=== PATIENT | male | born 1950 | race Two or more races ===

== ENCOUNTER 2018-06-01 20:12 | Inpatient (IN) | payer OTHER ==
[~2018-06-01] VITALS: Ht 182.9 cm; Wt 90.9 kg
[2018-06-01] MEDS ORDERED: diltiazem-NS 100mg/100ml 100 ML IV SCH (20:35)
[2018-06-01] MEDS ORDERED: heparin 10,000 units/1 ML INJ IV ONE ×2 (20:35→20:40)
[2018-06-01 20:54] LABS: BASOPHILS % (AUTO) 0.1 % (0-1); EOSINOPHILS # (AUTO) 0.2 X10'3 (0-0.9); EOSINOPHILS % (AUTO) 2.2 % (0-6); HEMATOCRIT 43.1 % (42.0-52.0); HEMOGLOBIN 14.4 g/dl (14.0-17.9); LYMPHOCYTES # (AUTO) 0.9 X10'3 (1.1-4.8); LYMPHOCYTES % (AUTO) 11.8 % (21-51); MEAN CORPUSCULAR HGB CONC 33.5 % (33.0-36.5); MEAN CORPUSCULAR VOLUME 101.4 FL (78-98); MEAN PLATELET VOLUME 8.5 FL (7.4-10.4); MONOCYTES # (AUTO) 0.7 X10'3 (0-0.9); MONOCYTES % (AUTO) 9.9 % (2-12); NEUTROPHILS # (AUTO) 5.6 X10'3 (1.8-7.7); PLATELET COUNT 150 X10'3 (140-440); RED BLOOD COUNT 4.25 X10'6 (4.70-6.10); WHITE BLOOD COUNT 7.4 X10'3 (4.5-11.0)
[2018-06-01 21:08] LABS: INR 1.1 INR; PARTIAL THROMBOPLASTIN TIME 29 SECONDS (22-32); PROTHROMBIN TIME 11.5 SECONDS (9.0-12.0)
[2018-06-01 21:12] LABS: ALANINE AMINOTRANSFERASE 30 U/L (12-78); ALBUMIN 3.2 G/DL (3.4-5.0); ALBUMIN/GLOBULIN RATIO 0.8 (1.1-1.5); ALKALINE PHOSPHATASE 95 IU/L (46-116); ANION GAP 7 (8-16); ASPARTATE AMINO TRANSFERASE 27 U/L (10-37); BILIRUBIN,TOTAL 1.3 MG/DL (0.1-1.0); BLOOD UREA NITROGEN 29 MG/DL (7-18); BUN/CREATININE RATIO 14.3 (5.4-32.0); CALCIUM 8.8 MG/DL (8.5-10.1); CHLORIDE 104 MMOL/L (99-107); CREATININE 2.03 MG/DL (0.60-1.10); GLUCOSE 92 MG/DL (70-104); POTASSIUM 3.6 MMOL/L (3.5-5.1); SODIUM 141 MMOL/L (135-145); TOTAL CARBON DIOXIDE 29.8 MMOL/L (24-32); TOTAL PROTEIN 7.1 G/DL (6.4-8.2); eGFR 33 ML/MIN
[2018-06-01] MEDS: heparin 10,000 units/1 ML INJ IV PRN (21:14)
[2018-06-01 21:21] LABS: MAGNESIUM 2.2 MG/DL (1.5-2.4)
[2018-06-01 21:39] LABS: CLARITY,URINE CLEAR (Clear); COLOR,URINE YELLOW (Yellow); GLUCOSE, URINE NEGATIVE (Neg); KETONES,URINE NEGATIVE (Neg); LEUKOCYTE ESTERASE ,URINE NEGATIVE (Neg); NITRITES, URINE NEGATIVE (Neg); OCCULT BLOOD,URINE NEGATIVE (Neg); PROTEIN,URINE 30 mg/dl (Neg); UROBILINOGEN,URINE 0.2 E.U/dL (0.2-1.0)
[2018-06-01 21:40] LABS: UA COLLECTION TYPE URINAL
[2018-06-01 21:49] LABS: URINE AMPHETAMINE SCREEN NEGATIVE (Neg); URINE BARBITUATE SCREEN NEGATIVE (Neg); URINE BENZODIAZEPINES SCREEN NEGATIVE (Neg); URINE CANNABINOID SCREEN NEGATIVE (Neg); URINE COCAINE SCREEN NEGATIVE (Neg); URINE METHADONE SCREEN NEGATIVE (Neg); URINE OPIATE SCREEN NEGATIVE (Neg); URINE PHENCYCLIDINE SCREEN NEGATIVE (Neg)
[2018-06-01 22:01] LABS: BACTERIA,URINE NONE SEEN /HPF (Neg); MUCUS STRANDS NONE SEEN /LPF (Neg); RBC,URINE 0-2 /HPF (0-2); SQUAMOUS EPITHELIAL CELL,UR FEW /LPF (FEW); WBC,URINE 0-4 /HPF (0-4)
[2018-06-01] MEDS ORDERED: FURO-150 PO (22:38)
[2018-06-01] MEDS ORDERED: METO100T7 PO (22:38)
[2018-06-01] MEDS ORDERED: LISI-604 PO (22:40)
[2018-06-01] MEDS ORDERED: DIGO125T PO (22:40)
[2018-06-01] MEDS ORDERED: DOCU100C41 PO (22:40)
[2018-06-01] MEDS ORDERED: magnesium hydroxide 30ml (MOM) UD suspension PO PRN (23:30)
[2018-06-01] MEDS ORDERED: ondansetron/PF 4mg/2ml inj IV PRN (23:30)
[2018-06-01] MEDS ORDERED: acetaminophen 325mg tablet PO PRN ×2 (23:30)
[2018-06-01] MEDS ORDERED: mag hydrox/Alum hydrox/simeth 30ml oral suspension PO PRN (23:30)
[2018-06-02] VITALS (10 sets, daily range): BP systolic 109–167; BP diastolic 64–117
[2018-06-02] MEDS ORDERED: ipratropium/albuterol 3ml nebule ONE (02:14)
[2018-06-02] MEDS: hydrALAZINE 20mg/ml inj. IV PRN ×2 (02:14→16:24)
[2018-06-02] MEDS: ipratropium/albuterol 3ml nebule NEB PRN ×2 (02:15→12:11)
[2018-06-02 02:44] LABS: BASOPHILS % (AUTO) 0.4 % (0-1); EOSINOPHILS # (AUTO) 0.2 X10'3 (0-0.9); EOSINOPHILS % (AUTO) 2.5 % (0-6); HEMATOCRIT 42.5 % (42.0-52.0); HEMOGLOBIN 14.3 g/dl (14.0-17.9); LYMPHOCYTES # (AUTO) 0.8 X10'3 (1.1-4.8); LYMPHOCYTES % (AUTO) 11.2 % (21-51); MEAN CORPUSCULAR HEMOGLOBIN 34.1 PG (27.0-31.0); MEAN CORPUSCULAR HGB CONC 33.7 % (33.0-36.5); MEAN CORPUSCULAR VOLUME 101.4 FL (78-98); MEAN PLATELET VOLUME 8.6 FL (7.4-10.4); MONOCYTES # (AUTO) 0.6 X10'3 (0-0.9); MONOCYTES % (AUTO) 7.9 % (2-12); NEUTROPHILS # (AUTO) 5.5 X10'3 (1.8-7.7); PLATELET COUNT 143 X10'3 (140-440); RED BLOOD COUNT 4.19 X10'6 (4.70-6.10); RED CELL DISTRIBUTION WIDTH 16.4 % (11.5-14.5); WHITE BLOOD COUNT 7.1 X10'3 (4.5-11.0)
[2018-06-02] MEDS ORDERED: ipratropium/albuterol 3ml nebule NEB SCH (03:00)
[2018-06-02 03:02] LABS: ALBUMIN 3.2 G/DL (3.4-5.0); ANION GAP 7 (8-16); BLOOD UREA NITROGEN 29 MG/DL (7-18); BUN/CREATININE RATIO 14.5 (5.4-32.0); CHLORIDE 104 MMOL/L (99-107); GLUCOSE 117 MG/DL (70-104); POTASSIUM 3.4 MMOL/L (3.5-5.1); SODIUM 138 MMOL/L (135-145); TOTAL CARBON DIOXIDE 27.2 MMOL/L (24-32); eGFR 33 ML/MIN
[2018-06-02] MEDS: heparin 10,000 units/1 ML INJ IV PRN ×2 (05:42→13:29)
[2018-06-02] MEDS: furosemide 10 MG/1 ML 10ml inj IV SCH ×2 (07:59→20:53)
[2018-06-02] MEDS: potassium Cl 20 mEq SR tablet PO SCH (07:59)
[2018-06-02] MEDS: metoprolol succinate 25mg (24-HOUR) SR. Tablet PO SCH ×2 (09:05→20:53)
[2018-06-02] MEDS ORDERED: nitroGLYCERIN 0.4mg SUBLingual tab SL PRN (17:55)
[2018-06-02] MEDS: aspirin 81mg tablet.DR PO SCH (18:06)
[2018-06-02] MEDS: lisinopril 5mg tablet PO SCH (18:06)
[2018-06-02] MEDS ORDERED: potassium Cl 20 mEq SR tablet PO PRN ×2 (20:40)
[2018-06-02] MEDS ORDERED: magnesium Cl slow-release 64mg tablet PO PRN (20:40)
[2018-06-03 02:04] LABS: ANION GAP 8 (8-16); BLOOD UREA NITROGEN 27 MG/DL (7-18); BUN/CREATININE RATIO 15.3 (5.4-32.0); CALCIUM 8.6 MG/DL (8.5-10.1); CHLORIDE 102 MMOL/L (99-107); CREATININE 1.77 MG/DL (0.60-1.10); GLUCOSE 94 MG/DL (70-104); MAGNESIUM 1.9 MG/DL (1.5-2.4); POTASSIUM 3.6 MMOL/L (3.5-5.1); SODIUM 139 MMOL/L (135-145); TOTAL CARBON DIOXIDE 28.6 MMOL/L (24-32); eGFR 38 ML/MIN
[2018-06-03 02:23] LABS: BASOPHILS # (AUTO) 0.1 X10'3 (0-0.2); BASOPHILS % (AUTO) 0.8 % (0-1); EOSINOPHILS # (AUTO) 0.1 X10'3 (0-0.9); EOSINOPHILS % (AUTO) 1.3 % (0-6); HEMATOCRIT 41.6 % (42.0-52.0); HEMOGLOBIN 13.8 g/dl (14.0-17.9); LYMPHOCYTES # (AUTO) 0.6 X10'3 (1.1-4.8); MEAN CORPUSCULAR HEMOGLOBIN 33.9 PG (27.0-31.0); MEAN CORPUSCULAR HGB CONC 33.1 % (33.0-36.5); MEAN CORPUSCULAR VOLUME 102.4 FL (78-98); MEAN PLATELET VOLUME 9.3 FL (7.4-10.4); MONOCYTES # (AUTO) 0.9 X10'3 (0-0.9); MONOCYTES % (AUTO) 10.3 % (2-12); NEUTROPHILS # (AUTO) 7.4 X10'3 (1.8-7.7); NEUTROPHILS % (AUTO) 80.6 % (42-75); PLATELET COUNT 140 X10'3 (140-440); RED BLOOD COUNT 4.07 X10'6 (4.70-6.10); WHITE BLOOD COUNT 9.1 X10'3 (4.5-11.0)
[2018-06-03 03:00] VITALS: BP 146/104
[2018-06-03 05:30] VITALS: BP 146/100
[2018-06-03] MEDS: furosemide 10 MG/1 ML 10ml inj IV SCH (07:19)
[2018-06-03] MEDS: aspirin 81mg tablet.DR PO SCH (07:19)
[2018-06-03] MEDS: metoprolol succinate 25mg (24-HOUR) SR. Tablet PO SCH ×2 (07:19→20:06)
[2018-06-03] MEDS: lisinopril 5mg tablet PO SCH (07:19)
[2018-06-03] MEDS: potassium Cl 20 mEq SR tablet PO SCH ×2 (07:19→20:06)
[2018-06-03] MEDS ORDERED: enoxaparin 40mg/0.4ml syringe SUBCUT SCH (08:00)
[2018-06-03] MEDS: rivaroxaban 15mg tablet PO SCH (08:22)
[2018-06-03] MEDS: ipratropium/albuterol 3ml nebule NEB PRN (10:31)
[2018-06-03 11:00] VITALS: BP 135/98
[2018-06-03] MEDS ORDERED: LORazepam 0.5 MG tablet PO PRN (13:30)
[2018-06-03 15:00] VITALS: BP 107/87
[2018-06-03] MEDS: furosemide 40mg/4ml inj IV SCH (16:07)
[2018-06-03 19:00] VITALS: BP 138/92
[2018-06-03] MEDS: docusate sod 100mg capsule PO SCH (20:05)
[2018-06-03 23:00] VITALS: BP 154/84
[2018-06-04] MEDS: furosemide 40mg/4ml inj IV SCH ×3 (00:40→20:00)
[2018-06-04 03:00] VITALS: BP 171/101
[2018-06-04 06:03] LABS: ANION GAP 6 (8-16); BLOOD UREA NITROGEN 35 MG/DL (7-18); BUN/CREATININE RATIO 17.2 (5.4-32.0); CALCIUM 9.1 MG/DL (8.5-10.1); CHLORIDE 103 MMOL/L (99-107); CREATININE 2.04 MG/DL (0.60-1.10); GLUCOSE 89 MG/DL (70-104); POTASSIUM 4.2 MMOL/L (3.5-5.1); SODIUM 138 MMOL/L (135-145); TOTAL CARBON DIOXIDE 29.5 MMOL/L (24-32); eGFR 33 ML/MIN
[2018-06-04 07:00] VITALS: BP 135/103
[2018-06-04] MEDS: lisinopril 5mg tablet PO SCH (07:37)
[2018-06-04] MEDS: docusate sod 100mg capsule PO SCH ×2 (07:37→20:00)
[2018-06-04] MEDS: aspirin 81mg tablet.DR PO SCH (07:37)
[2018-06-04] MEDS: metoprolol succinate 25mg (24-HOUR) SR. Tablet PO SCH ×2 (07:37→20:00)
[2018-06-04] MEDS: digoxin 125mcg (0.125mg) tablet PO SCH (07:38)
[2018-06-04] MEDS: rivaroxaban 15mg tablet PO SCH (08:51)
[2018-06-04] MEDS: potassium Cl 20 mEq SR tablet PO SCH ×2 (08:51→20:00)
[2018-06-04 11:00] VITALS: BP 146/103
[2018-06-04 15:00] VITALS: BP 129/105
[2018-06-04 19:00] VITALS: BP 149/119
[2018-06-04 23:00] VITALS: BP 133/101
[2018-06-05] MEDS: ipratropium/albuterol 3ml nebule NEB PRN ×3 (00:09→19:20)
[2018-06-05] MEDS: furosemide 40mg/4ml inj IV SCH ×2 (00:14→19:49)
[2018-06-05 06:00] VITALS: BP 140/99
[2018-06-05 06:15] LABS: ALBUMIN 2.7 G/DL (3.4-5.0); ANION GAP 4 (8-16); BLOOD UREA NITROGEN 41 MG/DL (7-18); BUN/CREATININE RATIO 21.1 (5.4-32.0); CALCIUM 8.8 MG/DL (8.5-10.1); CHLORIDE 105 MMOL/L (99-107); CREATININE 1.94 MG/DL (0.60-1.10); GLUCOSE 83 MG/DL (70-104); MAGNESIUM 1.9 MG/DL (1.5-2.4); POTASSIUM 3.9 MMOL/L (3.5-5.1); SODIUM 140 MMOL/L (135-145); TOTAL CARBON DIOXIDE 30.7 MMOL/L (24-32); eGFR 34 ML/MIN
[2018-06-05] MEDS: docusate sod 100mg capsule PO SCH ×2 (07:40→20:00)
[2018-06-05] MEDS: metoprolol succinate 25mg (24-HOUR) SR. Tablet PO SCH ×2 (07:41→19:50)
[2018-06-05] MEDS: digoxin 125mcg (0.125mg) tablet PO SCH (07:43)
[2018-06-05] MEDS: lisinopril 5mg tablet PO SCH (07:43)
[2018-06-05] MEDS: aspirin 81mg tablet.DR PO SCH (07:44)
[2018-06-05] MEDS: rivaroxaban 15mg tablet PO SCH (07:44)
[2018-06-05] MEDS: potassium Cl 20 mEq SR tablet PO SCH ×2 (07:44→19:50)
[2018-06-05] MEDS ORDERED: furosemide 40mg/4ml inj IV ONE (09:25)
[2018-06-05 11:00] VITALS: BP 124/98
[2018-06-05 15:00] VITALS: BP 118/75
[2018-06-05 19:00] VITALS: BP 141/90
[2018-06-05] MEDS ORDERED: ipratropium/albuterol 3ml nebule NEB PRN (19:05)
[2018-06-05 23:00] VITALS: BP 127/93
[2018-06-06 03:06] VITALS: BP 148/103
[2018-06-06] MEDS: hydrALAZINE 20mg/ml inj. IV PRN (03:36)
[2018-06-06 05:32] LABS: ALBUMIN 2.8 G/DL (3.4-5.0); ANION GAP 3 (8-16); BLOOD UREA NITROGEN 43 MG/DL (7-18); BUN/CREATININE RATIO 22.4 (5.4-32.0); CALCIUM 8.9 MG/DL (8.5-10.1); CHLORIDE 105 MMOL/L (99-107); CREATININE 1.92 MG/DL (0.60-1.10); GLUCOSE 72 MG/DL (70-104); MAGNESIUM 2.1 MG/DL (1.5-2.4); POTASSIUM 4.1 MMOL/L (3.5-5.1); SODIUM 140 MMOL/L (135-145); TOTAL CARBON DIOXIDE 32.1 MMOL/L (24-32); eGFR 35 ML/MIN
[2018-06-06 06:00] VITALS: BP 138/117
[2018-06-06] MEDS: rivaroxaban 15mg tablet PO SCH (07:47)
[2018-06-06] MEDS: metoprolol succinate 25mg (24-HOUR) SR. Tablet PO SCH ×2 (07:47→20:00)
[2018-06-06] MEDS: aspirin 81mg tablet.DR PO SCH (07:47)
[2018-06-06] MEDS: lisinopril 5mg tablet PO SCH (07:48)
[2018-06-06] MEDS: docusate sod 100mg capsule PO SCH ×2 (07:48→20:00)
[2018-06-06] MEDS: potassium Cl 20 mEq SR tablet PO SCH ×2 (07:48→20:00)
[2018-06-06] MEDS: digoxin 125mcg (0.125mg) tablet PO SCH (07:48)
[2018-06-06] MEDS: furosemide 40mg/4ml inj IV SCH ×2 (07:49→20:00)
[2018-06-06 11:00] VITALS: BP 126/104
[2018-06-06] MEDS: ipratropium/albuterol 3ml nebule NEB PRN (13:12)
[2018-06-06 15:00] VITALS: BP 127/98
[2018-06-06 19:00] VITALS: BP 112/86
[2018-06-06 23:00] VITALS: BP 118/80
[2018-06-07 03:02] VITALS: BP 112/76
[2018-06-07 06:00] VITALS: BP 143/94
[2018-06-07] MEDS: lisinopril 5mg tablet PO SCH (07:36)
[2018-06-07] MEDS: furosemide 40mg/4ml inj IV SCH ×2 (07:36→19:33)
[2018-06-07] MEDS: rivaroxaban 15mg tablet PO SCH (07:36)
[2018-06-07] MEDS: docusate sod 100mg capsule PO SCH ×2 (07:36→19:34)
[2018-06-07] MEDS: aspirin 81mg tablet.DR PO SCH (07:36)
[2018-06-07] MEDS: metoprolol succinate 25mg (24-HOUR) SR. Tablet PO SCH ×2 (07:36→19:34)
[2018-06-07] MEDS: digoxin 125mcg (0.125mg) tablet PO SCH (07:37)
[2018-06-07] MEDS: potassium Cl 20 mEq SR tablet PO SCH ×2 (08:00→19:34)
[2018-06-07 10:55] LABS: BASOPHILS % (AUTO) 0.5 % (0-1); EOSINOPHILS # (AUTO) 0.2 X10'3 (0-0.9); HEMATOCRIT 39.5 % (42.0-52.0); HEMOGLOBIN 12.9 g/dl (14.0-17.9); LYMPHOCYTES # (AUTO) 0.5 X10'3 (1.1-4.8); LYMPHOCYTES % (AUTO) 8.3 % (21-51); MEAN CORPUSCULAR HEMOGLOBIN 33.5 PG (27.0-31.0); MEAN CORPUSCULAR HGB CONC 32.8 % (33.0-36.5); MEAN CORPUSCULAR VOLUME 102.3 FL (78-98); MONOCYTES # (AUTO) 0.8 X10'3 (0-0.9); MONOCYTES % (AUTO) 13.1 % (2-12); NEUTROPHILS # (AUTO) 4.9 X10'3 (1.8-7.7); NEUTROPHILS % (AUTO) 75.1 % (42-75); PLATELET COUNT 155 X10'3 (140-440); RED BLOOD COUNT 3.86 X10'6 (4.70-6.10); RED CELL DISTRIBUTION WIDTH 16.1 % (11.5-14.5); WHITE BLOOD COUNT 6.5 X10'3 (4.5-11.0)
[2018-06-07 11:00] VITALS: BP 129/95
[2018-06-07 11:10] LABS: ALBUMIN 2.8 G/DL (3.4-5.0); ANION GAP 5 (8-16); BLOOD UREA NITROGEN 39 MG/DL (7-18); BUN/CREATININE RATIO 21.7 (5.4-32.0); CALCIUM 8.8 MG/DL (8.5-10.1); CHLORIDE 104 MMOL/L (99-107); GLUCOSE 102 MG/DL (70-104); POTASSIUM 4.5 MMOL/L (3.5-5.1); SODIUM 139 MMOL/L (135-145); TOTAL CARBON DIOXIDE 30.3 MMOL/L (24-32); eGFR 38 ML/MIN
[2018-06-07] MEDS: ipratropium/albuterol 3ml nebule NEB PRN (12:24)
[2018-06-07 15:51] VITALS: BP 125/94
[2018-06-07 19:00] VITALS: BP 138/85
[2018-06-07 23:00] VITALS: BP 132/84
[2018-06-08 03:00] VITALS: BP 136/82
[2018-06-08 05:31] LABS: BASOPHILS % (AUTO) 0.4 % (0-1); EOSINOPHILS # (AUTO) 0.2 X10'3 (0-0.9); HEMATOCRIT 38.9 % (42.0-52.0); HEMOGLOBIN 13.1 g/dl (14.0-17.9); LYMPHOCYTES # (AUTO) 0.7 X10'3 (1.1-4.8); LYMPHOCYTES % (AUTO) 11.6 % (21-51); MEAN CORPUSCULAR HEMOGLOBIN 34.3 PG (27.0-31.0); MEAN CORPUSCULAR HGB CONC 33.6 % (33.0-36.5); MEAN PLATELET VOLUME 9.4 FL (7.4-10.4); MONOCYTES # (AUTO) 0.9 X10'3 (0-0.9); NEUTROPHILS # (AUTO) 4.6 X10'3 (1.8-7.7); PLATELET COUNT 154 X10'3 (140-440); RED BLOOD COUNT 3.81 X10'6 (4.70-6.10); RED CELL DISTRIBUTION WIDTH 14.9 % (11.5-14.5); WHITE BLOOD COUNT 6.4 X10'3 (4.5-11.0)
[2018-06-08 05:54] LABS: ALBUMIN 2.7 G/DL (3.4-5.0); ANION GAP 5 (8-16); BLOOD UREA NITROGEN 37 MG/DL (7-18); BUN/CREATININE RATIO 19.5 (5.4-32.0); CHLORIDE 103 MMOL/L (99-107); GLUCOSE 83 MG/DL (70-104); POTASSIUM 4.7 MMOL/L (3.5-5.1); SODIUM 138 MMOL/L (135-145); TOTAL CARBON DIOXIDE 30.1 MMOL/L (24-32); eGFR 35 ML/MIN
[2018-06-08 06:00] VITALS: BP 152/101
[2018-06-08] MEDS: furosemide 40mg/4ml inj IV SCH ×2 (07:17→20:54)
[2018-06-08] MEDS: digoxin 125mcg (0.125mg) tablet PO SCH (07:18)
[2018-06-08] MEDS: aspirin 81mg tablet.DR PO SCH (07:18)
[2018-06-08] MEDS: potassium Cl 20 mEq SR tablet PO SCH ×2 (07:18→20:54)
[2018-06-08] MEDS: lisinopril 5mg tablet PO SCH (07:27)
[2018-06-08] MEDS: metoprolol succinate 25mg (24-HOUR) SR. Tablet PO SCH ×2 (07:28→20:54)
[2018-06-08] MEDS: docusate sod 100mg capsule PO SCH ×2 (07:34→20:53)
[2018-06-08] MEDS: rivaroxaban 15mg tablet PO SCH (07:34)
[2018-06-08 11:00] VITALS: BP 127/99
[2018-06-08] MEDS ORDERED: FURO-149 PO (13:21)
[2018-06-08] MEDS ORDERED: POTA20TA19 PO (13:21)
[2018-06-08] MEDS ORDERED: RIVA15TA PO (13:21)
[2018-06-08 19:00] VITALS: BP 121/85
[2018-06-09 07:00] VITALS: BP 147/101
[2018-06-09] MEDS: lisinopril 5mg tablet PO SCH (07:45)
[2018-06-09] MEDS: potassium Cl 20 mEq SR tablet PO SCH ×2 (07:46→19:43)
[2018-06-09] MEDS: furosemide 40mg/4ml inj IV SCH ×2 (07:46→19:42)
[2018-06-09] MEDS: metoprolol succinate 25mg (24-HOUR) SR. Tablet PO SCH ×2 (07:46→19:43)
[2018-06-09] MEDS: docusate sod 100mg capsule PO SCH ×2 (07:46→19:42)
[2018-06-09] MEDS: digoxin 125mcg (0.125mg) tablet PO SCH (07:46)
[2018-06-09] MEDS: aspirin 81mg tablet.DR PO SCH (07:46)
[2018-06-09] MEDS: rivaroxaban 15mg tablet PO SCH (08:59)
[2018-06-09 11:00] VITALS: BP 115/82
[2018-06-09 15:00] VITALS: BP 126/90
[2018-06-09 19:00] VITALS: BP 131/86
[2018-06-09 23:00] VITALS: BP 129/94
[2018-06-10 03:00] VITALS: BP 139/108
[2018-06-10 06:00] VITALS: BP 152/110
[2018-06-10] MEDS: furosemide 40mg/4ml inj IV SCH (07:59)
[2018-06-10] MEDS: metoprolol succinate 25mg (24-HOUR) SR. Tablet PO SCH (07:59)
[2018-06-10] MEDS: docusate sod 100mg capsule PO SCH (07:59)
[2018-06-10] MEDS: potassium Cl 20 mEq SR tablet PO SCH (08:00)
[2018-06-10] MEDS: digoxin 125mcg (0.125mg) tablet PO SCH (08:00)
[2018-06-10] MEDS: aspirin 81mg tablet.DR PO SCH (08:00)
[2018-06-10] MEDS: rivaroxaban 15mg tablet PO SCH (08:06)
[2018-06-10] MEDS: lisinopril 5mg tablet PO SCH (08:10)
[2018-06-10 11:00] VITALS: BP 122/96
== END 2018-06-10 16:17 | disposition home health service (06) | DRG 280 ==
LOC: ER 20:13 → ED HOLD 23:27 → PCU 3S 06-02 00:57
PROVIDERS: ADMIT Internal Medicine; ATTEND Family Medicine
DX: I21.A1 Myocardial infarction type 2 (principal); I50.23 Acute on chronic systolic (congestive) heart failure; N17.9 Acute kidney failure, unspecified; I42.9 Cardiomyopathy, unspecified; I11.0 Hypertensive heart disease with heart failure; E86.0 Dehydration; I35.0 Nonrheumatic aortic (valve) stenosis; F12.90 Cannabis use, unspecified, uncomplicated; F25.9 Schizoaffective disorder, unspecified; F31.9 Bipolar disorder, unspecified; S81.802A Unspecified open wound, left lower leg, initial encounter; F43.10 Post-traumatic stress disorder, unspecified; I48.91 Unspecified atrial fibrillation; J44.9 Chronic obstructive pulmonary disease, unspecified; Z66 Do not resuscitate; X58.XXXA Exposure to other specified factors, initial encounter; Z79.82 Long term (current) use of aspirin; Z79.899 Other long term (current) drug therapy; Y93.89 Activity, other specified; Y92.89 Other specified places as the place of occurrence of the external cause; Y99.8 Other external cause status
CPT/HCPCS: 36415; 71045; 80048; 80053; 80162; 80305; 81001; 83735; 83880; 84484; 85025; 85610; 85730; 87070; 93005; 93306; 94640; 94760; 96365; 97116; 97161; 97530; 99285; A6213; A6250; A6253; A6258; A6446; J0360; J1644; J1940; J3490

== ENCOUNTER 2018-08-25 19:24 | Inpatient (IN) | payer OTHER ==
[~2018-08-25] VITALS: Ht 182.9 cm; Wt 74.8 kg
[~2018-08-25 19:24] MED LIST: DIGO125T PO; DOCU100C41 PO; FURO-149 PO; LISI-604 PO; METO100T7 PO; RIVA15TA PO
[2018-08-25 20:21] LABS: BASOPHILS % (AUTO) 0.3 % (0-1); EOSINOPHILS # (AUTO) 0.3 X10'3 (0-0.9); EOSINOPHILS % (AUTO) 5.3 % (0-6); LYMPHOCYTES # (AUTO) 0.3 X10'3 (1.1-4.8); LYMPHOCYTES % (AUTO) 4.6 % (21-51); MEAN CORPUSCULAR HEMOGLOBIN 29.3 PG (27.0-31.0); MEAN CORPUSCULAR VOLUME 91.6 FL (78-98); MEAN PLATELET VOLUME 7.5 FL (7.4-10.4); MONOCYTES # (AUTO) 0.4 X10'3 (0-0.9); MONOCYTES % (AUTO) 7.2 % (2-12); NEUTROPHILS # (AUTO) 4.6 X10'3 (1.8-7.7); NEUTROPHILS % (AUTO) 82.6 % (42-75); PLATELET COUNT 213 X10'3 (140-440); RED CELL DISTRIBUTION WIDTH 19.4 % (11.5-14.5); WHITE BLOOD COUNT 5.6 X10'3 (4.5-11.0)
[2018-08-25] MEDS ORDERED: dextrose 50%-water 50ml dispensing syringe IV ONE (20:25)
[2018-08-25 20:27] LABS: HEMOGLOBIN 7.1 g/dl (14.0-17.9)
[2018-08-25 20:33] LABS: ALANINE AMINOTRANSFERASE 68 U/L (12-78); ALBUMIN 2.4 G/DL (3.4-5.0); ALBUMIN/GLOBULIN RATIO 0.7 (1.1-1.5); ALKALINE PHOSPHATASE 104 IU/L (46-116); ANION GAP 6 (8-16); ASPARTATE AMINO TRANSFERASE 46 U/L (10-37); BILIRUBIN,TOTAL 1.2 MG/DL (0.1-1.0); BLOOD UREA NITROGEN 92 MG/DL (7-18); BUN/CREATININE RATIO 43.8 (5.4-32.0); CALCIUM 7.8 MG/DL (8.5-10.1); CHLORIDE 107 MMOL/L (99-107); GLUCOSE 95 MG/DL (70-104); POTASSIUM 3.5 MMOL/L (3.5-5.1); SODIUM 143 MMOL/L (135-145); TOTAL CARBON DIOXIDE 29.6 MMOL/L (24-32); eGFR 31 ML/MIN
[2018-08-25 20:40] LABS: ETHANOL < 0.010 GM/DL (0.0-0.010)
[2018-08-25 20:41] LABS: PARTIAL THROMBOPLASTIN TIME 27 SECONDS (22-32); PROTHROMBIN TIME 10.7 SECONDS (9.0-12.0)
[2018-08-25] MEDS ORDERED: temazepam 15mg capsule PO PRN (21:00)
[2018-08-25 21:31] LABS: CLARITY,URINE CLEAR (Clear); COLOR,URINE YELLOW (Yellow); GLUCOSE, URINE 100 mg/dl (Neg); KETONES,URINE NEGATIVE (Neg); LEUKOCYTE ESTERASE ,URINE NEGATIVE (Neg); NITRITES, URINE NEGATIVE (Neg); OCCULT BLOOD,URINE SMALL (Neg); PH,URINE 5.5 (4.8-8.0); PROTEIN,URINE NEGATIVE (Neg); UROBILINOGEN,URINE 0.2 E.U/dL (0.2-1.0)
[2018-08-25 21:39] LABS: UA COLLECTION TYPE FOLEY CATH
[2018-08-25 21:41] LABS: BACTERIA,URINE NONE SEEN /HPF (Neg); MUCUS STRANDS NONE SEEN /LPF (Neg); RBC,URINE 0-2 /HPF (0-2); SQUAMOUS EPITHELIAL CELL,UR NONE SEEN /LPF (FEW); WBC,URINE 0-4 /HPF (0-4)
[2018-08-25 21:51] LABS: URINE AMPHETAMINE SCREEN NEGATIVE (Neg); URINE BARBITUATE SCREEN NEGATIVE (Neg); URINE BENZODIAZEPINES SCREEN NEGATIVE (Neg); URINE CANNABINOID SCREEN NEGATIVE (Neg); URINE COCAINE SCREEN NEGATIVE (Neg); URINE METHADONE SCREEN NEGATIVE (Neg); URINE OPIATE SCREEN NEGATIVE (Neg); URINE PHENCYCLIDINE SCREEN NEGATIVE (Neg)
[2018-08-25] MEDS ORDERED: mag hydrox/Alum hydrox/simeth 30ml oral suspension PO PRN (22:10)
[2018-08-25] MEDS ORDERED: bisacodyl 10mg suppository rectal RC PRN (22:10)
[2018-08-25] MEDS ORDERED: diphenhydrAMINE 50 mg/ml inj IV PRN (22:10)
[2018-08-25] MEDS ORDERED: magnesium hydroxide 30ml (MOM) UD suspension PO PRN (22:10)
[2018-08-25] MEDS ORDERED: diphenhydrAMINE 25mg capsule PO PRN (22:10)
[2018-08-25] MEDS ORDERED: HYDROcodone/acetaminophen 5mg/325mg tablet PO PRN (22:10)
[2018-08-25] MEDS ORDERED: acetaminophen 325mg tablet PO PRN ×2 (22:10)
[2018-08-25] MEDS ORDERED: morphine 2 MG/ML inj. syringe IV PRN ×2 (22:10)
[2018-08-25] MEDS ORDERED: ondansetron/PF 4mg/2ml inj IV PRN (22:10)
[2018-08-25] MEDS ORDERED: acetaminophen 650mg rectal suppository RC PRN (22:10)
[2018-08-25] MEDS ORDERED: HYDROcodone/acetaminophen 10/325mg tab PO PRN (22:10)
[2018-08-25] MEDS ORDERED: RIVA15TA PO (22:39)
[2018-08-25] MEDS ORDERED: FURO40TA4 PO (22:39)
[2018-08-25 22:42] LABS: HEMOGLOBIN A1C 5.7 % (4.5-6.2)
[2018-08-25 22:47] LABS: PHOSPHORUS 3.9 MG/DL (2.3-4.5); TROPONIN I 0.15 NG/ML (0.0-0.05)
[2018-08-25 23:40] VITALS: BP 101/70
[2018-08-26] VITALS (17 sets, daily range): BP systolic 84–149; BP diastolic 56–84
[2018-08-26] MEDS ORDERED: digoxin 125mcg (0.125mg) tablet PO ONE (03:35)
[2018-08-26] MEDS: normal saline 1000ml 1,000 ML IV SCH (05:09)
[2018-08-26] MEDS ORDERED: docusate sod 100mg capsule PO SCH (08:00)
[2018-08-26] MEDS: pantoprazole 40 MG vial IV SCH ×2 (08:15→21:14)
[2018-08-26 08:41] LABS: BASOPHILS % (AUTO) 0 % (0-1); EOSINOPHILS # (AUTO) 0.4 X10'3 (0-0.9); EOSINOPHILS % (AUTO) 7.1 % (0-6); HEMATOCRIT 24.1 % (42.0-52.0); HEMOGLOBIN 7.9 g/dl (14.0-17.9); LYMPHOCYTES # (AUTO) 0.3 X10'3 (1.1-4.8); LYMPHOCYTES % (AUTO) 5.7 % (21-51); MEAN CORPUSCULAR HEMOGLOBIN 29.9 PG (27.0-31.0); MEAN CORPUSCULAR VOLUME 90.5 FL (78-98); MEAN PLATELET VOLUME 7.4 FL (7.4-10.4); MONOCYTES # (AUTO) 0.6 X10'3 (0-0.9); MONOCYTES % (AUTO) 9.5 % (2-12); NEUTROPHILS # (AUTO) 4.7 X10'3 (1.8-7.7); NEUTROPHILS % (AUTO) 77.7 % (42-75); PLATELET COUNT 183 X10'3 (140-440); RED BLOOD COUNT 2.66 X10'6 (4.70-6.10); RED CELL DISTRIBUTION WIDTH 18.9 % (11.5-14.5)
[2018-08-26 08:55] LABS: ALBUMIN 2.3 G/DL (3.4-5.0); ANION GAP 7 (8-16); BLOOD UREA NITROGEN 74 MG/DL (7-18); BUN/CREATININE RATIO 35.2 (5.4-32.0); CALCIUM 8.1 MG/DL (8.5-10.1); CHLORIDE 110 MMOL/L (99-107); CHOL/HDL RATIO 3.5 (0.00-4.99); CHOLESTEROL 97 MG/DL (0-200); GLUCOSE 92 MG/DL (70-104); HDL CHOLESTEROL 28 MG/DL (35-60); LDL CHOLESTEROL 64 MG/DL (50-100); POTASSIUM 3.4 MMOL/L (3.5-5.1); SODIUM 146 MMOL/L (135-145); TOTAL CARBON DIOXIDE 29.2 MMOL/L (24-32); TRIGLYCERIDES 64 MG/DL (20-135); eGFR 31 ML/MIN
[2018-08-26] MEDS ORDERED: pneumococcal 23-VAL P-sac vacc 25 mcg/0.5ml vial IMVAC ONE (10:00)
[2018-08-26 10:12] LABS: ANISOCYTOSIS 2+; TARGET CELLS 1+
[2018-08-26 10:17] LABS: PLATELET ESTIMATE NORMAL
[2018-08-26] MEDS ORDERED: MIDAZolam 5mg/5ml vial ONE (16:23)
[2018-08-26] MEDS ORDERED: fentaNYL/PF 50MCG/1 ML 2ML syringe ONE (16:23)
[2018-08-26] MEDS ORDERED: LIDOcaine Viscous 15ml cup ONE (16:24)
[2018-08-26] MEDS: docusate sod 100mg capsule PO SCH (21:14)
[2018-08-27] VITALS: BP 104/63
[2018-08-27 05:52] LABS: BASOPHILS % (AUTO) 0.1 % (0-1); EOSINOPHILS # (AUTO) 0.4 X10'3 (0-0.9); EOSINOPHILS % (AUTO) 5.6 % (0-6); HEMATOCRIT 25.7 % (42.0-52.0); HEMOGLOBIN 8.4 g/dl (14.0-17.9); LYMPHOCYTES # (AUTO) 0.3 X10'3 (1.1-4.8); LYMPHOCYTES % (AUTO) 4.5 % (21-51); MEAN CORPUSCULAR HEMOGLOBIN 29.8 PG (27.0-31.0); MEAN CORPUSCULAR HGB CONC 32.8 % (33.0-36.5); MEAN CORPUSCULAR VOLUME 90.8 FL (78-98); MEAN PLATELET VOLUME 8.3 FL (7.4-10.4); MONOCYTES # (AUTO) 0.6 X10'3 (0-0.9); MONOCYTES % (AUTO) 8.3 % (2-12); NEUTROPHILS # (AUTO) 5.5 X10'3 (1.8-7.7); NEUTROPHILS % (AUTO) 81.5 % (42-75); PLATELET COUNT 179 X10'3 (140-440); RED BLOOD COUNT 2.83 X10'6 (4.70-6.10); WHITE BLOOD COUNT 6.8 X10'3 (4.5-11.0)
[2018-08-27 06:11] LABS: ALBUMIN 2.3 G/DL (3.4-5.0); ANION GAP 7 (8-16); BLOOD UREA NITROGEN 56 MG/DL (7-18); BUN/CREATININE RATIO 29.2 (5.4-32.0); CALCIUM 8.1 MG/DL (8.5-10.1); CHLORIDE 106 MMOL/L (99-107); CREATININE 1.92 MG/DL (0.60-1.10); GLUCOSE 93 MG/DL (70-104); POTASSIUM 3.5 MMOL/L (3.5-5.1); SODIUM 141 MMOL/L (135-145); TOTAL CARBON DIOXIDE 28.4 MMOL/L (24-32); eGFR 35 ML/MIN
[2018-08-27 06:20] LABS: H PYLORI ANTIBODY NEGATIVE (Neg)
[2018-08-27] MEDS: docusate sod 100mg capsule PO SCH ×2 (07:33→20:40)
[2018-08-27] MEDS: furosemide 40mg tablet PO SCH (07:33)
[2018-08-27] MEDS: digoxin 125mcg (0.125mg) tablet PO SCH (07:33)
[2018-08-27] MEDS: lisinopril 10 MG tablet PO SCH (07:35)
[2018-08-27] MEDS: metoprolol succinate 25mg (24-HOUR) SR. Tablet PO SCH (07:35)
[2018-08-27] MEDS: pantoprazole 40 MG vial IV SCH ×2 (07:35→20:40)
[2018-08-27 07:47] LABS: ANISOCYTOSIS 2+; PLATELET ESTIMATE NORMAL
[2018-08-27 08:02] VITALS: BP 116/77
[2018-08-27 11:06] LABS: OCCULT BLOOD STOOL POSITIVE (Neg)
[2018-08-27] MEDS ORDERED: heparin 25,000 UNIT/250ml bag 250 ML IV SCH (16:00)
[2018-08-27] MEDS ORDERED: heparin 10,000 units/1 ML INJ IV ONE (16:00)
[2018-08-27 16:25] LABS: HEMATOCRIT 22.9 % (42.0-52.0); HEMOGLOBIN 7.5 g/dl (14.0-17.9); MEAN CORPUSCULAR HEMOGLOBIN 29.7 PG (27.0-31.0); MEAN CORPUSCULAR HGB CONC 32.5 % (33.0-36.5); MEAN CORPUSCULAR VOLUME 91.3 FL (78-98); MEAN PLATELET VOLUME 6.9 FL (7.4-10.4); PLATELET COUNT 204 X10'3 (140-440); RED BLOOD COUNT 2.51 X10'6 (4.70-6.10); RED CELL DISTRIBUTION WIDTH 19.1 % (11.5-14.5); WHITE BLOOD COUNT 6.4 X10'3 (4.5-11.0)
[2018-08-27] MEDS: heparin 25,000 UNIT/250ml bag 250 ML IV SCH (17:24)
[2018-08-27] MEDS: heparin 10,000 units/1 ML INJ IV PRN (17:27)
[2018-08-27] MEDS: normal saline 1000ml 1,000 ML IV SCH (19:54)
[2018-08-27 20:00] VITALS: BP 88/58
[2018-08-27 23:09] LABS: HEMATOCRIT 22.3 % (42.0-52.0); HEMOGLOBIN 7.2 g/dl (14.0-17.9); MEAN CORPUSCULAR HEMOGLOBIN 29.1 PG (27.0-31.0); MEAN CORPUSCULAR HGB CONC 32.2 % (33.0-36.5); MEAN CORPUSCULAR VOLUME 90.4 FL (78-98); MEAN PLATELET VOLUME 7.7 FL (7.4-10.4); PLATELET COUNT 198 X10'3 (140-440); RED BLOOD COUNT 2.47 X10'6 (4.70-6.10); RED CELL DISTRIBUTION WIDTH 19.1 % (11.5-14.5); WHITE BLOOD COUNT 5.9 X10'3 (4.5-11.0)
[2018-08-28] VITALS (7 sets, daily range): BP systolic 90–103; BP diastolic 45–76
[2018-08-28] MEDS: heparin 25,000 UNIT/250ml bag 250 ML IV SCH ×2 (00:32→20:34)
[2018-08-28 07:59] LABS: BASOPHILS % (AUTO) 0.1 % (0-1); EOSINOPHILS # (AUTO) 0.5 X10'3 (0-0.9); EOSINOPHILS % (AUTO) 8.4 % (0-6); HEMATOCRIT 23.5 % (42.0-52.0); HEMOGLOBIN 7.6 g/dl (14.0-17.9); LYMPHOCYTES # (AUTO) 0.4 X10'3 (1.1-4.8); LYMPHOCYTES % (AUTO) 6.8 % (21-51); MEAN CORPUSCULAR HEMOGLOBIN 29.5 PG (27.0-31.0); MEAN CORPUSCULAR HGB CONC 32.4 % (33.0-36.5); MEAN CORPUSCULAR VOLUME 91.1 FL (78-98); MEAN PLATELET VOLUME 8.2 FL (7.4-10.4); MONOCYTES # (AUTO) 0.5 X10'3 (0-0.9); MONOCYTES % (AUTO) 8.5 % (2-12); NEUTROPHILS # (AUTO) 4.5 X10'3 (1.8-7.7); NEUTROPHILS % (AUTO) 76.2 % (42-75); PLATELET COUNT 209 X10'3 (140-440); RED BLOOD COUNT 2.58 X10'6 (4.70-6.10); RED CELL DISTRIBUTION WIDTH 19.3 % (11.5-14.5); WHITE BLOOD COUNT 5.9 X10'3 (4.5-11.0)
[2018-08-28] MEDS: lisinopril 10 MG tablet PO SCH (08:00)
[2018-08-28] MEDS: metoprolol succinate 25mg (24-HOUR) SR. Tablet PO SCH (08:00)
[2018-08-28] MEDS: furosemide 40mg tablet PO SCH (08:00)
[2018-08-28 08:09] LABS: ALBUMIN 2.1 G/DL (3.4-5.0); ANION GAP 7 (8-16); BLOOD UREA NITROGEN 50 MG/DL (7-18); BUN/CREATININE RATIO 25.3 (5.4-32.0); CALCIUM 7.9 MG/DL (8.5-10.1); CHLORIDE 104 MMOL/L (99-107); CREATININE 1.98 MG/DL (0.60-1.10); GLUCOSE 83 MG/DL (70-104); POTASSIUM 3.1 MMOL/L (3.5-5.1); SODIUM 139 MMOL/L (135-145); TOTAL CARBON DIOXIDE 27.9 MMOL/L (24-32); eGFR 34 ML/MIN
[2018-08-28] MEDS: docusate sod 100mg capsule PO SCH ×2 (08:56→20:23)
[2018-08-28] MEDS: digoxin 125mcg (0.125mg) tablet PO SCH (08:57)
[2018-08-28] MEDS: pantoprazole 40 MG vial IV SCH ×2 (10:32→20:23)
[2018-08-28] MEDS ORDERED: magnesium Cl slow-release 64mg tablet PO PRN (15:25)
[2018-08-28] MEDS ORDERED: potassium Cl 20 mEq SR tablet PO PRN (15:25)
[2018-08-28] MEDS ORDERED: potassium Cl 40MEQ/NS 500ml 500 ML IV PRN ×2 (15:25)
[2018-08-28] MEDS ORDERED: magnesium 4gm in 100ml NS 100 ML IV PRN (15:25)
[2018-08-28 17:15] LABS: HEMATOCRIT 22.6 % (42.0-52.0); HEMOGLOBIN 7.4 g/dl (14.0-17.9); MEAN CORPUSCULAR HEMOGLOBIN 29.8 PG (27.0-31.0); MEAN CORPUSCULAR HGB CONC 32.8 % (33.0-36.5); MEAN CORPUSCULAR VOLUME 90.7 FL (78-98); MEAN PLATELET VOLUME 8.9 FL (7.4-10.4); PLATELET COUNT 191 X10'3 (140-440); RED BLOOD COUNT 2.49 X10'6 (4.70-6.10); RED CELL DISTRIBUTION WIDTH 19.1 % (11.5-14.5); WHITE BLOOD COUNT 5.7 X10'3 (4.5-11.0)
[2018-08-28 17:50] LABS: ELLIPTOCYTES 1+; PLATELET ESTIMATE NORMAL; POLYCHROMASIA 1+
[2018-08-28 17:51] LABS: HYPOCHROMASIA 1+
[2018-08-28 17:52] LABS: ANISOCYTOSIS 2+; POIKILOCYTOSIS 1+
[2018-08-28] MEDS: potassium Cl 20 mEq SR tablet PO PRN (20:23)
[2018-08-28] MEDS: normal saline 1000ml 1,000 ML IV SCH (20:23)
[2018-08-28 23:47] LABS: HEMATOCRIT 24.7 % (42.0-52.0); HEMOGLOBIN 7.9 g/dl (14.0-17.9); MEAN CORPUSCULAR HEMOGLOBIN 29.3 PG (27.0-31.0); MEAN CORPUSCULAR HGB CONC 32.1 % (33.0-36.5); MEAN CORPUSCULAR VOLUME 91.3 FL (78-98); MEAN PLATELET VOLUME 8.1 FL (7.4-10.4); PLATELET COUNT 225 X10'3 (140-440); RED BLOOD COUNT 2.71 X10'6 (4.70-6.10); RED CELL DISTRIBUTION WIDTH 18.9 % (11.5-14.5); WHITE BLOOD COUNT 5.7 X10'3 (4.5-11.0)
[2018-08-29] VITALS: BP 99/57
[2018-08-29] MEDS: potassium Cl 20 mEq SR tablet PO PRN (01:07)
[2018-08-29 03:16] LABS: ALBUMIN 2.1 G/DL (3.4-5.0); ANION GAP 7 (8-16); BLOOD UREA NITROGEN 43 MG/DL (7-18); BUN/CREATININE RATIO 22.3 (5.4-32.0); CHLORIDE 104 MMOL/L (99-107); CREATININE 1.93 MG/DL (0.60-1.10); GLUCOSE 102 MG/DL (70-104); MAGNESIUM 1.7 MG/DL (1.5-2.4); POTASSIUM 3.7 MMOL/L (3.5-5.1); SODIUM 138 MMOL/L (135-145); TOTAL CARBON DIOXIDE 26.7 MMOL/L (24-32); eGFR 35 ML/MIN
[2018-08-29 03:19] LABS: BASOPHILS % (AUTO) 0.1 % (0-1); EOSINOPHILS # (AUTO) 0.4 X10'3 (0-0.9); EOSINOPHILS % (AUTO) 8.4 % (0-6); LYMPHOCYTES # (AUTO) 0.4 X10'3 (1.1-4.8); LYMPHOCYTES % (AUTO) 7.5 % (21-51); MEAN CORPUSCULAR HEMOGLOBIN 29.5 PG (27.0-31.0); MEAN CORPUSCULAR HGB CONC 32.5 % (33.0-36.5); MEAN CORPUSCULAR VOLUME 90.8 FL (78-98); MONOCYTES # (AUTO) 0.3 X10'3 (0-0.9); MONOCYTES % (AUTO) 6.3 % (2-12); NEUTROPHILS % (AUTO) 77.7 % (42-75); PLATELET COUNT 226 X10'3 (140-440); RED BLOOD COUNT 2.34 X10'6 (4.70-6.10); RED CELL DISTRIBUTION WIDTH 19.2 % (11.5-14.5); WHITE BLOOD COUNT 5.1 X10'3 (4.5-11.0)
[2018-08-29] MEDS: heparin 10,000 units/1 ML INJ IV PRN (03:43)
[2018-08-29] MEDS: heparin 25,000 UNIT/250ml bag 250 ML IV SCH (03:46)
[2018-08-29 03:57] LABS: HEMATOCRIT 21.3 % (42.0-52.0); HEMOGLOBIN 6.9 g/dl (14.0-17.9)
[2018-08-29 04:20] VITALS: BP 111/73
[2018-08-29 07:35] VITALS: BP_SYST 117; BP_SYST 177; BP_DIAS 61
[2018-08-29] MEDS: furosemide 40mg tablet PO SCH (08:45)
[2018-08-29] MEDS: digoxin 125mcg (0.125mg) tablet PO SCH (08:47)
[2018-08-29] MEDS: docusate sod 100mg capsule PO SCH ×2 (08:47→20:31)
[2018-08-29] MEDS: metoprolol succinate 25mg (24-HOUR) SR. Tablet PO SCH (08:49)
[2018-08-29] MEDS: lisinopril 10 MG tablet PO SCH (08:50)
[2018-08-29] MEDS: pantoprazole 40 MG vial IV SCH ×2 (08:51→20:31)
[2018-08-29] MEDS: sodium bicarbonate (8.4%) inj. 100 MEQ in sodium chloride 0.45% 1,000 ML IV SCH ×2 (09:14→20:32)
[2018-08-29 10:42] LABS: HEMATOCRIT 23.1 % (42.0-52.0); HEMOGLOBIN 7.6 g/dl (14.0-17.9); MEAN CORPUSCULAR HEMOGLOBIN 29.4 PG (27.0-31.0); MEAN CORPUSCULAR HGB CONC 32.7 % (33.0-36.5); MEAN CORPUSCULAR VOLUME 90.1 FL (78-98); MEAN PLATELET VOLUME 7.9 FL (7.4-10.4); PLATELET COUNT 217 X10'3 (140-440); RED BLOOD COUNT 2.56 X10'6 (4.70-6.10); RED CELL DISTRIBUTION WIDTH 19.4 % (11.5-14.5); WHITE BLOOD COUNT 5.4 X10'3 (4.5-11.0)
[2018-08-29 10:54] LABS: ANISOCYTOSIS 2+; HYPOCHROMASIA 1+; PLATELET ESTIMATE NORMAL
[2018-08-29 11:46] VITALS: BP_SYST 94
[2018-08-29] MEDS: normal saline 1000ml 1,000 ML IV SCH (11:54)
[2018-08-29 17:30] LABS: HEMATOCRIT 23.5 % (42.0-52.0); HEMOGLOBIN 7.5 g/dl (14.0-17.9); MEAN CORPUSCULAR HEMOGLOBIN 29.2 PG (27.0-31.0); MEAN CORPUSCULAR HGB CONC 31.8 % (33.0-36.5); MEAN CORPUSCULAR VOLUME 91.6 FL (78-98); MEAN PLATELET VOLUME 7.5 FL (7.4-10.4); PLATELET COUNT 219 X10'3 (140-440); RED BLOOD COUNT 2.57 X10'6 (4.70-6.10); RED CELL DISTRIBUTION WIDTH 19.9 % (11.5-14.5); WHITE BLOOD COUNT 5.4 X10'3 (4.5-11.0)
[2018-08-29 20:00] VITALS: BP 101/56
[2018-08-30] VITALS: BP 125/81
[2018-08-30] MEDS: heparin 25,000 UNIT/250ml bag 250 ML IV SCH (00:50)
[2018-08-30 01:28] LABS: BASOPHILS % (AUTO) 0.3 % (0-1); EOSINOPHILS # (AUTO) 0.4 X10'3 (0-0.9); EOSINOPHILS % (AUTO) 8.7 % (0-6); HEMATOCRIT 23.5 % (42.0-52.0); HEMOGLOBIN 7.5 g/dl (14.0-17.9); LYMPHOCYTES # (AUTO) 0.3 X10'3 (1.1-4.8); LYMPHOCYTES % (AUTO) 6.3 % (21-51); MEAN CORPUSCULAR HEMOGLOBIN 29.4 PG (27.0-31.0); MEAN CORPUSCULAR HGB CONC 32.1 % (33.0-36.5); MEAN CORPUSCULAR VOLUME 91.5 FL (78-98); MEAN PLATELET VOLUME 7.9 FL (7.4-10.4); MONOCYTES # (AUTO) 0.4 X10'3 (0-0.9); MONOCYTES % (AUTO) 7.8 % (2-12); NEUTROPHILS # (AUTO) 3.8 X10'3 (1.8-7.7); NEUTROPHILS % (AUTO) 76.9 % (42-75); PLATELET COUNT 225 X10'3 (140-440); RED BLOOD COUNT 2.56 X10'6 (4.70-6.10); RED CELL DISTRIBUTION WIDTH 19.6 % (11.5-14.5)
[2018-08-30 01:37] LABS: ALBUMIN 2.1 G/DL (3.4-5.0); ANION GAP 8 (8-16); BLOOD UREA NITROGEN 41 MG/DL (7-18); BUN/CREATININE RATIO 20.7 (5.4-32.0); CALCIUM 8.1 MG/DL (8.5-10.1); CHLORIDE 102 MMOL/L (99-107); CREATININE 1.98 MG/DL (0.60-1.10); GLUCOSE 99 MG/DL (70-104); MAGNESIUM 1.6 MG/DL (1.5-2.4); POTASSIUM 3.7 MMOL/L (3.5-5.1); SODIUM 138 MMOL/L (135-145); TOTAL CARBON DIOXIDE 28.2 MMOL/L (24-32); eGFR 34 ML/MIN
[2018-08-30 07:32] VITALS: BP 122/78
[2018-08-30] MEDS: normal saline 1000ml 1,000 ML IV SCH ×2 (07:54→20:11)
[2018-08-30] MEDS: sodium bicarbonate (8.4%) inj. 100 MEQ in sodium chloride 0.45% 1,000 ML IV SCH ×3 (08:45→19:58)
[2018-08-30] MEDS: furosemide 40mg tablet PO SCH (08:46)
[2018-08-30] MEDS: lisinopril 10 MG tablet PO SCH (08:46)
[2018-08-30] MEDS: docusate sod 100mg capsule PO SCH ×2 (08:46→20:09)
[2018-08-30] MEDS: metoprolol succinate 25mg (24-HOUR) SR. Tablet PO SCH (08:47)
[2018-08-30] MEDS: digoxin 125mcg (0.125mg) tablet PO SCH (08:49)
[2018-08-30] MEDS: pantoprazole 40 MG vial IV SCH ×2 (08:49→20:05)
[2018-08-30 11:00] LABS: HEMATOCRIT 23.1 % (42.0-52.0); HEMOGLOBIN 7.4 g/dl (14.0-17.9); MEAN CORPUSCULAR HEMOGLOBIN 29.4 PG (27.0-31.0); MEAN CORPUSCULAR HGB CONC 32.2 % (33.0-36.5); MEAN CORPUSCULAR VOLUME 91.3 FL (78-98); PLATELET COUNT 211 X10'3 (140-440); RED BLOOD COUNT 2.53 X10'6 (4.70-6.10); RED CELL DISTRIBUTION WIDTH 18.8 % (11.5-14.5); WHITE BLOOD COUNT 4.9 X10'3 (4.5-11.0)
[2018-08-30 12:52] VITALS: BP 98/59
[2018-08-30] MEDS ORDERED: iohexol 350MG/ML 100ml bottle IV ONE (13:19)
[2018-08-30] MEDS ORDERED: iohexol 350 MG/ML 50ML vial IV ONE (13:19)
[2018-08-30 16:19] LABS: HEMATOCRIT 23.7 % (42.0-52.0); HEMOGLOBIN 7.6 g/dl (14.0-17.9); MEAN CORPUSCULAR HEMOGLOBIN 29.1 PG (27.0-31.0); MEAN CORPUSCULAR VOLUME 90.8 FL (78-98); MEAN PLATELET VOLUME 7.3 FL (7.4-10.4); PLATELET COUNT 237 X10'3 (140-440); RED BLOOD COUNT 2.61 X10'6 (4.70-6.10); RED CELL DISTRIBUTION WIDTH 18.6 % (11.5-14.5); WHITE BLOOD COUNT 4.7 X10'3 (4.5-11.0)
[2018-08-30 20:00] VITALS: BP 114/73
[2018-08-31] VITALS: BP 110/83
[2018-08-31 00:14] LABS: MEAN CORPUSCULAR HEMOGLOBIN 29.5 PG (27.0-31.0); MEAN CORPUSCULAR HGB CONC 32.8 % (33.0-36.5); MEAN CORPUSCULAR VOLUME 90.2 FL (78-98); MEAN PLATELET VOLUME 7.8 FL (7.4-10.4); PLATELET COUNT 213 X10'3 (140-440); RED BLOOD COUNT 2.36 X10'6 (4.70-6.10); RED CELL DISTRIBUTION WIDTH 18.4 % (11.5-14.5); WHITE BLOOD COUNT 4.1 X10'3 (4.5-11.0)
[2018-08-31 00:19] LABS: HEMATOCRIT 21.3 % (42.0-52.0)
[2018-08-31] MEDS: heparin 25,000 UNIT/250ml bag 250 ML IV SCH ×3 (03:57→17:38)
[2018-08-31] MEDS: sodium bicarbonate (8.4%) inj. 100 MEQ in sodium chloride 0.45% 1,000 ML IV SCH (04:22)
[2018-08-31 07:23] LABS: HEMATOCRIT 23.7 % (42.0-52.0); HEMOGLOBIN 7.7 g/dl (14.0-17.9); MEAN CORPUSCULAR HEMOGLOBIN 29.3 PG (27.0-31.0); MEAN CORPUSCULAR HGB CONC 32.3 % (33.0-36.5); MEAN CORPUSCULAR VOLUME 90.6 FL (78-98); MEAN PLATELET VOLUME 8.1 FL (7.4-10.4); PLATELET COUNT 206 X10'3 (140-440); RED BLOOD COUNT 2.62 X10'6 (4.70-6.10); RED CELL DISTRIBUTION WIDTH 18.9 % (11.5-14.5); WHITE BLOOD COUNT 4.8 X10'3 (4.5-11.0)
[2018-08-31 07:33] VITALS: BP 110/79
[2018-08-31 07:35] LABS: ALBUMIN 2.1 G/DL (3.4-5.0); ANION GAP 5 (8-16); BLOOD UREA NITROGEN 34 MG/DL (7-18); BUN/CREATININE RATIO 19.3 (5.4-32.0); CALCIUM 8.3 MG/DL (8.5-10.1); CHLORIDE 102 MMOL/L (99-107); CREATININE 1.76 MG/DL (0.60-1.10); GLUCOSE 91 MG/DL (70-104); MAGNESIUM 1.6 MG/DL (1.5-2.4); POTASSIUM 3.3 MMOL/L (3.5-5.1); SODIUM 140 MMOL/L (135-145); TOTAL CARBON DIOXIDE 33.5 MMOL/L (24-32); eGFR 39 ML/MIN
[2018-08-31] MEDS: lisinopril 10 MG tablet PO SCH (07:40)
[2018-08-31] MEDS: furosemide 40mg tablet PO SCH (07:40)
[2018-08-31] MEDS: docusate sod 100mg capsule PO SCH ×2 (07:40→20:03)
[2018-08-31] MEDS: digoxin 125mcg (0.125mg) tablet PO SCH (07:41)
[2018-08-31] MEDS: metoprolol succinate 25mg (24-HOUR) SR. Tablet PO SCH (07:41)
[2018-08-31] MEDS: pantoprazole 40 MG vial IV SCH ×2 (07:42→20:03)
[2018-08-31] MEDS: potassium Cl 20 mEq SR tablet PO PRN ×2 (08:58→13:51)
[2018-08-31 13:39] VITALS: BP 110/81
[2018-08-31] MEDS: normal saline 1000ml 1,000 ML IV SCH (14:35)
[2018-08-31 20:00] VITALS: BP 122/74
[2018-08-31] MEDS: lactobacillus rhamnosus 10,000 MMU CELLS/CAPSULE PO SCH (20:03)
[2018-08-31] MEDS: cefepime 1GM/NS ADD-VANTAGE 100 ML IV SCH (20:03)
[2018-08-31 20:16] LABS: HEMOGLOBIN 7.1 g/dl (14.0-17.9); MEAN CORPUSCULAR HEMOGLOBIN 29.5 PG (27.0-31.0); MEAN CORPUSCULAR HGB CONC 32.6 % (33.0-36.5); MEAN CORPUSCULAR VOLUME 90.3 FL (78-98); MEAN PLATELET VOLUME 7.7 FL (7.4-10.4); PLATELET COUNT 222 X10'3 (140-440); RED BLOOD COUNT 2.39 X10'6 (4.70-6.10); RED CELL DISTRIBUTION WIDTH 19.3 % (11.5-14.5); WHITE BLOOD COUNT 4.5 X10'3 (4.5-11.0)
[2018-08-31 20:20] LABS: HEMATOCRIT 21.6 % (42.0-52.0)
[2018-09-01] VITALS: BP 131/87
[2018-09-01] MEDS: heparin 25,000 UNIT/250ml bag 250 ML IV SCH (04:37)
[2018-09-01 06:45] LABS: ANION GAP 7 (8-16); BLOOD UREA NITROGEN 33 MG/DL (7-18); BUN/CREATININE RATIO 17.9 (5.4-32.0); CALCIUM 8.6 MG/DL (8.5-10.1); CHLORIDE 104 MMOL/L (99-107); CREATININE 1.84 MG/DL (0.60-1.10); GLUCOSE 81 MG/DL (70-104); MAGNESIUM 1.5 MG/DL (1.5-2.4); SODIUM 142 MMOL/L (135-145); TOTAL CARBON DIOXIDE 31.1 MMOL/L (24-32); eGFR 37 ML/MIN
[2018-09-01 06:51] LABS: HEMATOCRIT 22.3 % (42.0-52.0); HEMOGLOBIN 7.2 g/dl (14.0-17.9); MEAN CORPUSCULAR HEMOGLOBIN 29.1 PG (27.0-31.0); MEAN CORPUSCULAR HGB CONC 32.2 % (33.0-36.5); MEAN CORPUSCULAR VOLUME 90.3 FL (78-98); MEAN PLATELET VOLUME 8.4 FL (7.4-10.4); PLATELET COUNT 211 X10'3 (140-440); RED BLOOD COUNT 2.46 X10'6 (4.70-6.10); RED CELL DISTRIBUTION WIDTH 18.6 % (11.5-14.5); WHITE BLOOD COUNT 5.2 X10'3 (4.5-11.0)
[2018-09-01 07:00] VITALS: BP 147/97
[2018-09-01] MEDS: cefepime 1GM/NS ADD-VANTAGE 100 ML IV SCH ×2 (08:08→20:22)
[2018-09-01] MEDS: lisinopril 10 MG tablet PO SCH (08:09)
[2018-09-01] MEDS: docusate sod 100mg capsule PO SCH ×2 (08:09→20:22)
[2018-09-01] MEDS: pantoprazole 40 MG vial IV SCH ×2 (08:09→20:22)
[2018-09-01] MEDS: furosemide 40mg/4ml inj IV SCH ×2 (08:09→20:22)
[2018-09-01] MEDS: lactobacillus rhamnosus 10,000 MMU CELLS/CAPSULE PO SCH ×2 (08:09→20:22)
[2018-09-01] MEDS: metoprolol succinate 25mg (24-HOUR) SR. Tablet PO SCH (08:09)
[2018-09-01] MEDS: digoxin 125mcg (0.125mg) tablet PO SCH (08:12)
[2018-09-01 12:00] VITALS: BP 115/75
[2018-09-01] MEDS: normal saline 1000ml 1,000 ML IV SCH (14:17)
[2018-09-01 16:38] LABS: BASOPHILS % (AUTO) 0.2 % (0-1); EOSINOPHILS # (AUTO) 0.3 X10'3 (0-0.9); EOSINOPHILS % (AUTO) 7.3 % (0-6); HEMATOCRIT 22.2 % (42.0-52.0); HEMOGLOBIN 7.2 g/dl (14.0-17.9); LYMPHOCYTES # (AUTO) 0.5 X10'3 (1.1-4.8); LYMPHOCYTES % (AUTO) 10.3 % (21-51); MEAN CORPUSCULAR HEMOGLOBIN 29.3 PG (27.0-31.0); MEAN CORPUSCULAR HGB CONC 32.3 % (33.0-36.5); MEAN CORPUSCULAR VOLUME 90.7 FL (78-98); MEAN PLATELET VOLUME 6.9 FL (7.4-10.4); MONOCYTES # (AUTO) 0.6 X10'3 (0-0.9); MONOCYTES % (AUTO) 13.4 % (2-12); NEUTROPHILS # (AUTO) 3.2 X10'3 (1.8-7.7); NEUTROPHILS % (AUTO) 68.8 % (42-75); PLATELET COUNT 244 X10'3 (140-440); RED BLOOD COUNT 2.45 X10'6 (4.70-6.10); RED CELL DISTRIBUTION WIDTH 18.8 % (11.5-14.5); WHITE BLOOD COUNT 4.6 X10'3 (4.5-11.0)
[2018-09-01 20:00] VITALS: BP 119/75
[2018-09-01 23:07] LABS: HEMATOCRIT 22.6 % (42.0-52.0); HEMOGLOBIN 7.1 g/dl (14.0-17.9); MEAN CORPUSCULAR HEMOGLOBIN 28.4 PG (27.0-31.0); MEAN CORPUSCULAR HGB CONC 31.2 % (33.0-36.5); MEAN CORPUSCULAR VOLUME 90.9 FL (78-98); MEAN PLATELET VOLUME 7.4 FL (7.4-10.4); PLATELET COUNT 226 X10'3 (140-440); RED BLOOD COUNT 2.48 X10'6 (4.70-6.10)
[2018-09-02] VITALS (8 sets, daily range): BP systolic 116–141; BP diastolic 74–94
[2018-09-02] MEDS: heparin 25,000 UNIT/250ml bag 250 ML IV SCH (04:59)
[2018-09-02 06:13] LABS: HEMATOCRIT 23.8 % (42.0-52.0); HEMOGLOBIN 7.6 g/dl (14.0-17.9); MEAN CORPUSCULAR HEMOGLOBIN 28.9 PG (27.0-31.0); MEAN CORPUSCULAR HGB CONC 31.8 % (33.0-36.5); MEAN CORPUSCULAR VOLUME 90.8 FL (78-98); MEAN PLATELET VOLUME 7.5 FL (7.4-10.4); PLATELET COUNT 249 X10'3 (140-440); RED BLOOD COUNT 2.62 X10'6 (4.70-6.10); RED CELL DISTRIBUTION WIDTH 18.8 % (11.5-14.5); WHITE BLOOD COUNT 5.2 X10'3 (4.5-11.0)
[2018-09-02 06:28] LABS: ALBUMIN 2.1 G/DL (3.4-5.0); ANION GAP 8 (8-16); BLOOD UREA NITROGEN 35 MG/DL (7-18); BUN/CREATININE RATIO 16.4 (5.4-32.0); CALCIUM 8.8 MG/DL (8.5-10.1); CHLORIDE 102 MMOL/L (99-107); CREATININE 2.14 MG/DL (0.60-1.10); GLUCOSE 87 MG/DL (70-104); POTASSIUM 3.7 MMOL/L (3.5-5.1); SODIUM 141 MMOL/L (135-145); TOTAL CARBON DIOXIDE 30.7 MMOL/L (24-32); eGFR 31 ML/MIN
[2018-09-02] MEDS: pantoprazole 40 MG vial IV SCH ×2 (08:14→19:28)
[2018-09-02] MEDS: docusate sod 100mg capsule PO SCH ×2 (08:14→20:04)
[2018-09-02] MEDS: lactobacillus rhamnosus 10,000 MMU CELLS/CAPSULE PO SCH ×2 (08:14→19:28)
[2018-09-02] MEDS: cefepime 1GM/NS ADD-VANTAGE 100 ML IV SCH (08:14)
[2018-09-02] MEDS: furosemide 40mg/4ml inj IV SCH (08:14)
[2018-09-02] MEDS: metoprolol succinate 25mg (24-HOUR) SR. Tablet PO SCH (08:15)
[2018-09-02] MEDS: lisinopril 10 MG tablet PO SCH (08:16)
[2018-09-02] MEDS: digoxin 125mcg (0.125mg) tablet PO SCH (08:19)
[2018-09-02] MEDS ORDERED: LIDOcaine 1%/PF 5ML 10 MG/ML VIAL SQ ONE (13:00)
[2018-09-02] MEDS ORDERED: normal saline 1000ml 1,000 ML IV SCH ×2 (13:00→14:44)
[2018-09-02] MEDS ORDERED: fentaNYL/PF 50MCG/1 ML 2ML syringe IV PRN (13:00)
[2018-09-02] MEDS ORDERED: midazolam 2 mg/2 ml injection IV PRN (13:00)
[2018-09-02] MEDS ORDERED: iohexol 300mg/ml 100ml inj. ONE (13:14)
[2018-09-02] MEDS ORDERED: LIDOcaine 1%/PF 5ML 10 MG/ML VIAL ONE (13:14)
[2018-09-02] MEDS ORDERED: iohexol 300 MG/1 ML 50ml polymer ONE ×3 (13:14→14:17)
[2018-09-02] MEDS ORDERED: fentaNYL/PF 50MCG/1 ML 2ML syringe ONE (13:14)
[2018-09-02] MEDS ORDERED: heparin 1,000 UNITS/NS 500ml 500 ML ONE (13:14)
[2018-09-02] MEDS ORDERED: midazolam 2 mg/2 ml injection ONE (13:14)
[2018-09-02] MEDS: CefTRIAXone/D5W-Rocephin 1gm 50 ML IV SCH (15:32)
[2018-09-02] MEDS: furosemide 20 MG/2 ML vial IV SCH (19:29)
[2018-09-03] VITALS (11 sets, daily range): BP systolic 105–145; BP diastolic 44–90
[2018-09-03] MEDS: CefTRIAXone/D5W-Rocephin 1gm 50 ML IV SCH (07:40)
[2018-09-03] MEDS: furosemide 20 MG/2 ML vial IV SCH ×2 (07:40→16:00)
[2018-09-03] MEDS: pantoprazole 40 MG vial IV SCH ×2 (07:40→23:58)
[2018-09-03] MEDS: metoprolol succinate 25mg (24-HOUR) SR. Tablet PO SCH (07:41)
[2018-09-03] MEDS: lisinopril 10 MG tablet PO SCH (07:41)
[2018-09-03] MEDS: lactobacillus rhamnosus 10,000 MMU CELLS/CAPSULE PO SCH ×2 (07:41→23:57)
[2018-09-03] MEDS: docusate sod 100mg capsule PO SCH ×2 (07:41→23:57)
[2018-09-03] MEDS: digoxin 125mcg (0.125mg) tablet PO SCH (07:54)
[2018-09-03 08:19] LABS: ALBUMIN 1.8 G/DL (3.4-5.0); ANION GAP 6 (8-16); BLOOD UREA NITROGEN 32 MG/DL (7-18); BUN/CREATININE RATIO 16.2 (5.4-32.0); CALCIUM 8.5 MG/DL (8.5-10.1); CHLORIDE 103 MMOL/L (99-107); CREATININE 1.98 MG/DL (0.60-1.10); GLUCOSE 80 MG/DL (70-104); POTASSIUM 3.8 MMOL/L (3.5-5.1); SODIUM 142 MMOL/L (135-145); TOTAL CARBON DIOXIDE 33.5 MMOL/L (24-32); eGFR 34 ML/MIN
[2018-09-03 08:46] LABS: BASOPHILS % (AUTO) 0.1 % (0-1); EOSINOPHILS # (AUTO) 0.3 X10'3 (0-0.9); LYMPHOCYTES # (AUTO) 0.5 X10'3 (1.1-4.8); LYMPHOCYTES % (AUTO) 9.5 % (21-51); MEAN CORPUSCULAR HEMOGLOBIN 29.5 PG (27.0-31.0); MEAN CORPUSCULAR HGB CONC 32.8 % (33.0-36.5); MEAN CORPUSCULAR VOLUME 89.8 FL (78-98); MEAN PLATELET VOLUME 7.8 FL (7.4-10.4); MONOCYTES # (AUTO) 0.7 X10'3 (0-0.9); MONOCYTES % (AUTO) 13.3 % (2-12); NEUTROPHILS # (AUTO) 3.9 X10'3 (1.8-7.7); NEUTROPHILS % (AUTO) 72.1 % (42-75); PLATELET COUNT 221 X10'3 (140-440); RED BLOOD COUNT 2.38 X10'6 (4.70-6.10); RED CELL DISTRIBUTION WIDTH 18.5 % (11.5-14.5); WHITE BLOOD COUNT 5.4 X10'3 (4.5-11.0)
[2018-09-03 08:54] LABS: HEMATOCRIT 21.3 % (42.0-52.0)
[2018-09-03] MEDS ORDERED: nitroGLYCERIN 0.4mg SUBLingual tab SL PRN (08:55)
[2018-09-03] MEDS ORDERED: aminophylline 250mg/10ml inj. IV PRN (08:55)
[2018-09-03] MEDS ORDERED: regadenoson 0.4mg/5ml syringe IV PRN (08:55)
[2018-09-03] MEDS ORDERED: metoprolol tartrate 1mg/ml inj IV PRN (08:55)
[2018-09-03 09:34] LABS: ANISOCYTOSIS 2+; PLATELET ESTIMATE NORMAL; TARGET CELLS FEW
[2018-09-03 09:35] LABS: HYPOCHROMASIA 1+
[2018-09-03] MEDS ORDERED: diphenhydrAMINE 25mg capsule PO ONE (10:15)
[2018-09-03] MEDS ORDERED: acetaminophen 325mg tablet PO ONE (10:15)
[2018-09-03] MEDS: heparin 25,000 UNIT/250ml bag 250 ML IV SCH ×2 (11:45→14:27)
[2018-09-03] MEDS ORDERED: furosemide 40mg/4ml inj IV ONE (12:15)
[2018-09-03] MEDS: heparin 10,000 units/1 ML INJ IV PRN (14:22)
[2018-09-03] MEDS ORDERED: Potassium Cl inj 10 MEQ in normal saline 1000ml 1,000 ML IV SCH (14:44)
[2018-09-03 21:09] LABS: HEMOGLOBIN 7.7 g/dl (14.0-17.9); MEAN CORPUSCULAR HEMOGLOBIN 28.8 PG (27.0-31.0); MEAN CORPUSCULAR HGB CONC 32.1 % (33.0-36.5); MEAN CORPUSCULAR VOLUME 89.4 FL (78-98); MEAN PLATELET VOLUME 7.9 FL (7.4-10.4); PLATELET COUNT 218 X10'3 (140-440); RED BLOOD COUNT 2.68 X10'6 (4.70-6.10); RED CELL DISTRIBUTION WIDTH 19.1 % (11.5-14.5); WHITE BLOOD COUNT 4.7 X10'3 (4.5-11.0)
[2018-09-03] MEDS ORDERED: Thrombin (Bovine) 5,000 unit vial TP STA (21:21)
[2018-09-03] MEDS ORDERED: LIDOcaine 1% (10mg/ml) 2ml vial ONE (21:38)
[2018-09-04] VITALS (15 sets, daily range): BP systolic 107–157; BP diastolic 57–106
[2018-09-04] MEDS: furosemide 20 MG/2 ML vial IV SCH ×3 (00:02→16:00)
[2018-09-04 06:00] LABS: BASOPHILS % (AUTO) 0.1 % (0-1); EOSINOPHILS # (AUTO) 0.3 X10'3 (0-0.9); EOSINOPHILS % (AUTO) 5.6 % (0-6); HEMOGLOBIN 7.4 g/dl (14.0-17.9); LYMPHOCYTES # (AUTO) 0.5 X10'3 (1.1-4.8); LYMPHOCYTES % (AUTO) 11.1 % (21-51); MEAN CORPUSCULAR HEMOGLOBIN 28.6 PG (27.0-31.0); MEAN CORPUSCULAR VOLUME 89.4 FL (78-98); MEAN PLATELET VOLUME 7.9 FL (7.4-10.4); MONOCYTES # (AUTO) 0.7 X10'3 (0-0.9); MONOCYTES % (AUTO) 13.7 % (2-12); NEUTROPHILS # (AUTO) 3.4 X10'3 (1.8-7.7); NEUTROPHILS % (AUTO) 69.5 % (42-75); PLATELET COUNT 223 X10'3 (140-440); RED BLOOD COUNT 2.58 X10'6 (4.70-6.10); RED CELL DISTRIBUTION WIDTH 18.9 % (11.5-14.5); WHITE BLOOD COUNT 4.9 X10'3 (4.5-11.0)
[2018-09-04 06:04] LABS: ALBUMIN 1.8 G/DL (3.4-5.0); ANION GAP 5 (8-16); BLOOD UREA NITROGEN 32 MG/DL (7-18); BUN/CREATININE RATIO 16.9 (5.4-32.0); CALCIUM 8.4 MG/DL (8.5-10.1); CHLORIDE 103 MMOL/L (99-107); CREATININE 1.89 MG/DL (0.60-1.10); GLUCOSE 85 MG/DL (70-104); POTASSIUM 3.3 MMOL/L (3.5-5.1); SODIUM 142 MMOL/L (135-145); TOTAL CARBON DIOXIDE 34.4 MMOL/L (24-32); eGFR 36 ML/MIN
[2018-09-04 06:38] LABS: ANISOCYTOSIS 2+; HYPOCHROMASIA 1+; PLATELET ESTIMATE NORMAL
[2018-09-04] MEDS ORDERED: regadenoson 0.4mg/5ml syringe IV ONE ×3 (09:02→13:31)
[2018-09-04] MEDS ORDERED: aminophylline inj. 0 ML IV ONE ×3 (09:02→13:31)
[2018-09-04] MEDS: pantoprazole 40 MG vial IV SCH ×2 (09:03→19:22)
[2018-09-04] MEDS: CefTRIAXone/D5W-Rocephin 1gm 50 ML IV SCH (09:04)
[2018-09-04] MEDS: docusate sod 100mg capsule PO SCH ×2 (09:08→19:22)
[2018-09-04] MEDS: lisinopril 10 MG tablet PO SCH (09:09)
[2018-09-04] MEDS: digoxin 125mcg (0.125mg) tablet PO SCH (09:09)
[2018-09-04] MEDS: metoprolol succinate 25mg (24-HOUR) SR. Tablet PO SCH (09:09)
[2018-09-04] MEDS: lactobacillus rhamnosus 10,000 MMU CELLS/CAPSULE PO SCH ×2 (09:09→19:22)
[2018-09-04] MEDS ORDERED: LORazepam 2 mg/ml vial IV ONE (13:00)
[2018-09-04] MEDS ORDERED: acetaminophen 325mg tablet PO ONE (13:45)
[2018-09-04] MEDS ORDERED: diphenhydrAMINE 25mg capsule PO ONE (13:45)
[2018-09-04] MEDS ORDERED: furosemide 40mg/4ml inj IV ONE (15:45)
[2018-09-05] VITALS: BP 129/85
[2018-09-05] MEDS: furosemide 20 MG/2 ML vial IV SCH ×3 (01:15→17:23)
[2018-09-05 05:50] LABS: BASOPHILS % (AUTO) 0.6 % (0-1); EOSINOPHILS # (AUTO) 0.3 X10'3 (0-0.9); EOSINOPHILS % (AUTO) 7.6 % (0-6); HEMATOCRIT 26.5 % (42.0-52.0); HEMOGLOBIN 8.6 g/dl (14.0-17.9); LYMPHOCYTES # (AUTO) 0.5 X10'3 (1.1-4.8); MEAN CORPUSCULAR HEMOGLOBIN 29.1 PG (27.0-31.0); MEAN CORPUSCULAR HGB CONC 32.3 % (33.0-36.5); MEAN PLATELET VOLUME 7.8 FL (7.4-10.4); MONOCYTES # (AUTO) 0.5 X10'3 (0-0.9); MONOCYTES % (AUTO) 12.2 % (2-12); NEUTROPHILS # (AUTO) 3.1 X10'3 (1.8-7.7); NEUTROPHILS % (AUTO) 68.6 % (42-75); PLATELET COUNT 214 X10'3 (140-440); RED BLOOD COUNT 2.94 X10'6 (4.70-6.10); RED CELL DISTRIBUTION WIDTH 17.8 % (11.5-14.5); WHITE BLOOD COUNT 4.5 X10'3 (4.5-11.0)
[2018-09-05 06:15] LABS: ALBUMIN 1.8 G/DL (3.4-5.0); ANION GAP 4 (8-16); BLOOD UREA NITROGEN 33 MG/DL (7-18); CALCIUM 8.7 MG/DL (8.5-10.1); CHLORIDE 104 MMOL/L (99-107); CREATININE 1.94 MG/DL (0.60-1.10); GLUCOSE 93 MG/DL (70-104); POTASSIUM 3.4 MMOL/L (3.5-5.1); SODIUM 144 MMOL/L (135-145); TOTAL CARBON DIOXIDE 35.7 MMOL/L (24-32); eGFR 34 ML/MIN
[2018-09-05 08:00] VITALS: BP 120/74
[2018-09-05] MEDS: lactobacillus rhamnosus 10,000 MMU CELLS/CAPSULE PO SCH ×2 (08:51→20:37)
[2018-09-05] MEDS: metoprolol succinate 25mg (24-HOUR) SR. Tablet PO SCH (08:52)
[2018-09-05] MEDS: digoxin 125mcg (0.125mg) tablet PO SCH (08:53)
[2018-09-05] MEDS: pantoprazole 40 MG vial IV SCH ×2 (08:53→20:32)
[2018-09-05] MEDS: lisinopril 10 MG tablet PO SCH (08:54)
[2018-09-05] MEDS: CefTRIAXone/D5W-Rocephin 1gm 50 ML IV SCH (08:54)
[2018-09-05] MEDS: docusate sod 100mg capsule PO SCH ×2 (08:54→20:39)
[2018-09-05 12:28] VITALS: BP 112/78
[2018-09-05] MEDS: potassium Cl 20 mEq SR tablet PO SCH (17:23)
[2018-09-05 20:00] VITALS: BP 136/83
[2018-09-06] VITALS: BP 134/74
[2018-09-06] MEDS: furosemide 20 MG/2 ML vial IV SCH ×3 (00:44→16:46)
[2018-09-06 05:09] LABS: BASOPHILS % (AUTO) 0.4 % (0-1); EOSINOPHILS # (AUTO) 0.3 X10'3 (0-0.9); EOSINOPHILS % (AUTO) 6.4 % (0-6); HEMATOCRIT 26.8 % (42.0-52.0); HEMOGLOBIN 8.7 g/dl (14.0-17.9); LYMPHOCYTES # (AUTO) 0.6 X10'3 (1.1-4.8); LYMPHOCYTES % (AUTO) 12.2 % (21-51); MEAN CORPUSCULAR HGB CONC 32.3 % (33.0-36.5); MEAN CORPUSCULAR VOLUME 89.6 FL (78-98); MEAN PLATELET VOLUME 7.9 FL (7.4-10.4); MONOCYTES # (AUTO) 0.6 X10'3 (0-0.9); MONOCYTES % (AUTO) 11.6 % (2-12); NEUTROPHILS # (AUTO) 3.5 X10'3 (1.8-7.7); NEUTROPHILS % (AUTO) 69.4 % (42-75); PLATELET COUNT 202 X10'3 (140-440); RED BLOOD COUNT 2.99 X10'6 (4.70-6.10); RED CELL DISTRIBUTION WIDTH 18.4 % (11.5-14.5)
[2018-09-06 05:31] LABS: ALBUMIN 1.9 G/DL (3.4-5.0); ANION GAP 6 (8-16); BLOOD UREA NITROGEN 35 MG/DL (7-18); BUN/CREATININE RATIO 18.3 (5.4-32.0); CHLORIDE 101 MMOL/L (99-107); CREATININE 1.91 MG/DL (0.60-1.10); GLUCOSE 83 MG/DL (70-104); POTASSIUM 3.4 MMOL/L (3.5-5.1); SODIUM 143 MMOL/L (135-145); TOTAL CARBON DIOXIDE 35.7 MMOL/L (24-32); eGFR 35 ML/MIN
[2018-09-06 08:00] VITALS: BP 135/77
[2018-09-06] MEDS: metoprolol succinate 25mg (24-HOUR) SR. Tablet PO SCH (08:02)
[2018-09-06] MEDS: docusate sod 100mg capsule PO SCH ×2 (08:05→21:30)
[2018-09-06] MEDS: lisinopril 10 MG tablet PO SCH (08:05)
[2018-09-06] MEDS: lactobacillus rhamnosus 10,000 MMU CELLS/CAPSULE PO SCH ×2 (08:05→21:25)
[2018-09-06] MEDS: potassium Cl 20 mEq SR tablet PO SCH ×2 (08:05→16:46)
[2018-09-06] MEDS: digoxin 125mcg (0.125mg) tablet PO SCH (08:09)
[2018-09-06] MEDS: pantoprazole 40 MG vial IV SCH ×2 (08:10→21:20)
[2018-09-06] MEDS: CefTRIAXone/D5W-Rocephin 1gm 50 ML IV SCH (08:10)
[2018-09-06 11:00] VITALS: BP 113/74
[2018-09-06 19:43] LABS: INR 1.1 INR; PROTHROMBIN TIME 10.9 SECONDS (9.0-12.0)
[2018-09-06 20:00] VITALS: BP 120/78
[2018-09-06] MEDS ORDERED: warfarin 5mg tablet PO ONE (21:00)
[2018-09-06] MEDS: heparin, porcine 5000 units/ml vial SQ SCH (21:28)
[2018-09-06] MEDS ORDERED: magnesium 1gm/100ml D5W IVPB 100 ML IV PRN (21:35)
[2018-09-06] MEDS ORDERED: potassium Cl 40MEQ/NS 500ml 500 ML IV PRN ×2 (21:35)
[2018-09-06] MEDS ORDERED: potassium Cl 20 mEq SR tablet PO PRN ×2 (21:35)
[2018-09-06] MEDS ORDERED: magnesium Cl slow-release 64mg tablet PO PRN (21:35)
[2018-09-06] MEDS ORDERED: magnesium 4gm in 100ml NS 100 ML IV PRN (21:35)
[2018-09-06 22:35] LABS: MAGNESIUM 1.6 MG/DL (1.5-2.4); POTASSIUM 3.9 MMOL/L (3.5-5.1)
[2018-09-07] VITALS: BP 128/81
[2018-09-07] MEDS: furosemide 20 MG/2 ML vial IV SCH ×4 (01:34→23:42)
[2018-09-07 05:10] LABS: BASOPHILS % (AUTO) 0.2 % (0-1); EOSINOPHILS # (AUTO) 0.3 X10'3 (0-0.9); EOSINOPHILS % (AUTO) 6.5 % (0-6); HEMATOCRIT 27.4 % (42.0-52.0); HEMOGLOBIN 8.7 g/dl (14.0-17.9); LYMPHOCYTES # (AUTO) 0.8 X10'3 (1.1-4.8); LYMPHOCYTES % (AUTO) 17.6 % (21-51); MEAN CORPUSCULAR HEMOGLOBIN 28.8 PG (27.0-31.0); MEAN CORPUSCULAR HGB CONC 31.9 % (33.0-36.5); MEAN CORPUSCULAR VOLUME 90.3 FL (78-98); MEAN PLATELET VOLUME 7.8 FL (7.4-10.4); MONOCYTES # (AUTO) 0.5 X10'3 (0-0.9); MONOCYTES % (AUTO) 11.4 % (2-12); NEUTROPHILS # (AUTO) 2.8 X10'3 (1.8-7.7); NEUTROPHILS % (AUTO) 64.3 % (42-75); PLATELET COUNT 235 X10'3 (140-440); RED BLOOD COUNT 3.03 X10'6 (4.70-6.10); WHITE BLOOD COUNT 4.3 X10'3 (4.5-11.0)
[2018-09-07 05:48] LABS: INR 1.1 INR; PROTHROMBIN TIME 10.7 SECONDS (9.0-12.0)
[2018-09-07 05:55] LABS: ALBUMIN 2.1 G/DL (3.4-5.0); ANION GAP 5 (8-16); BLOOD UREA NITROGEN 33 MG/DL (7-18); BUN/CREATININE RATIO 19.8 (5.4-32.0); CALCIUM 9.2 MG/DL (8.5-10.1); CHLORIDE 100 MMOL/L (99-107); CREATININE 1.67 MG/DL (0.60-1.10); GLUCOSE 81 MG/DL (70-104); MAGNESIUM 1.7 MG/DL (1.5-2.4); POTASSIUM 3.8 MMOL/L (3.5-5.1); SODIUM 141 MMOL/L (135-145); TOTAL CARBON DIOXIDE 36.3 MMOL/L (24-32); eGFR 41 ML/MIN
[2018-09-07 07:30] VITALS: BP 129/90
[2018-09-07] MEDS: pantoprazole 40 MG vial IV SCH ×2 (09:24→20:43)
[2018-09-07] MEDS: lactobacillus rhamnosus 10,000 MMU CELLS/CAPSULE PO SCH ×2 (09:25→20:44)
[2018-09-07] MEDS: heparin, porcine 5000 units/ml vial SQ SCH ×2 (09:25→20:48)
[2018-09-07] MEDS: docusate sod 100mg capsule PO SCH ×2 (09:25→20:44)
[2018-09-07] MEDS: digoxin 125mcg (0.125mg) tablet PO SCH (09:26)
[2018-09-07] MEDS: potassium Cl 20 mEq SR tablet PO SCH ×2 (09:26→17:10)
[2018-09-07] MEDS: metoprolol succinate 25mg (24-HOUR) SR. Tablet PO SCH (09:28)
[2018-09-07] MEDS: CefTRIAXone/D5W-Rocephin 1gm 50 ML IV SCH (09:28)
[2018-09-07] MEDS: lisinopril 10 MG tablet PO SCH (09:31)
[2018-09-07] MEDS: aspirin 81mg tablet.DR PO SCH (09:39)
[2018-09-07] MEDS ORDERED: COU5T PO (10:03)
[2018-09-07] MEDS ORDERED: PANT-47 PO (10:03)
[2018-09-07] MEDS ORDERED: CEPH500C5 PO (10:03)
[2018-09-07] MEDS ORDERED: ASPI-1071 PO (10:03)
[2018-09-07] MEDS: [UNRECOGNIZED DRUG - REMARK] SQ NR (10:51)
[2018-09-07 12:15] VITALS: BP 132/94
[2018-09-07 19:00] VITALS: BP 126/87
[2018-09-07] MEDS ORDERED: warfarin 5mg tablet PO ONE (21:00)
[2018-09-08] VITALS: BP 122/85
[2018-09-08] MEDS: CefTRIAXone/D5W-Rocephin 1gm 50 ML IV SCH (07:22)
[2018-09-08 07:26] VITALS: BP 116/75
[2018-09-08 07:34] LABS: BASOPHILS % (AUTO) 0.1 % (0-1); EOSINOPHILS # (AUTO) 0.2 X10'3 (0-0.9); EOSINOPHILS % (AUTO) 5.3 % (0-6); HEMATOCRIT 26.5 % (42.0-52.0); HEMOGLOBIN 8.5 g/dl (14.0-17.9); LYMPHOCYTES # (AUTO) 0.7 X10'3 (1.1-4.8); LYMPHOCYTES % (AUTO) 16.9 % (21-51); MEAN CORPUSCULAR HGB CONC 32.2 % (33.0-36.5); MEAN CORPUSCULAR VOLUME 90.1 FL (78-98); MEAN PLATELET VOLUME 7.6 FL (7.4-10.4); MONOCYTES # (AUTO) 0.6 X10'3 (0-0.9); MONOCYTES % (AUTO) 13.1 % (2-12); NEUTROPHILS # (AUTO) 2.8 X10'3 (1.8-7.7); NEUTROPHILS % (AUTO) 64.6 % (42-75); PLATELET COUNT 228 X10'3 (140-440); RED BLOOD COUNT 2.94 X10'6 (4.70-6.10); RED CELL DISTRIBUTION WIDTH 18.4 % (11.5-14.5); WHITE BLOOD COUNT 4.4 X10'3 (4.5-11.0)
[2018-09-08] MEDS: lactobacillus rhamnosus 10,000 MMU CELLS/CAPSULE PO SCH (07:39)
[2018-09-08] MEDS: furosemide 20 MG/2 ML vial IV SCH (07:39)
[2018-09-08] MEDS: aspirin 81mg tablet.DR PO SCH (07:39)
[2018-09-08] MEDS: pantoprazole 40 MG vial IV SCH (07:39)
[2018-09-08] MEDS: docusate sod 100mg capsule PO SCH (07:39)
[2018-09-08] MEDS: digoxin 125mcg (0.125mg) tablet PO SCH (07:41)
[2018-09-08] MEDS: metoprolol succinate 25mg (24-HOUR) SR. Tablet PO SCH (07:42)
[2018-09-08] MEDS: potassium Cl 20 mEq SR tablet PO SCH (07:43)
[2018-09-08] MEDS: lisinopril 10 MG tablet PO SCH (07:46)
[2018-09-08 07:47] LABS: ALBUMIN 2.1 G/DL (3.4-5.0); ANION GAP 3 (8-16); BLOOD UREA NITROGEN 33 MG/DL (7-18); BUN/CREATININE RATIO 17.6 (5.4-32.0); CALCIUM 9.1 MG/DL (8.5-10.1); CHLORIDE 101 MMOL/L (99-107); CREATININE 1.88 MG/DL (0.60-1.10); GLUCOSE 92 MG/DL (70-104); MAGNESIUM 1.9 MG/DL (1.5-2.4); SODIUM 139 MMOL/L (135-145); TOTAL CARBON DIOXIDE 35.5 MMOL/L (24-32); eGFR 36 ML/MIN
[2018-09-08 07:52] LABS: INR 1.1 INR; PROTHROMBIN TIME 10.7 SECONDS (9.0-12.0)
[2018-09-08] MEDS: heparin, porcine 5000 units/ml vial SQ SCH (08:02)
[2018-09-08] MEDS: [UNRECOGNIZED DRUG - REMARK] SQ NR (10:13)
[2018-09-08 11:13] VITALS: BP 133/74
== END 2018-09-08 12:15 | disposition home health service (06) | DRG 377 ==
LOC: ER 19:25 → ED HOLD 22:06 → SUR 3N 23:49
PROVIDERS: ADMIT Family Medicine; ATTEND Internal Medicine
PROC: 30233N1 Transfusion of Nonautologous Red Blood Cells into Peripheral Vein, Percutaneous Approach (ICD-10-PCS; 2018-08-25)
PROC: 3E02340 Introduction of Influenza Vaccine into Muscle, Percutaneous Approach (ICD-10-PCS; principal; 2018-08-26)
PROC: 3E0234Z Introduction of Serum, Toxoid and Vaccine into Muscle, Percutaneous Approach (ICD-10-PCS; 2018-08-26)
PROC: 30233N1 Transfusion of Nonautologous Red Blood Cells into Peripheral Vein, Percutaneous Approach (ICD-10-PCS; 2018-08-26)
PROC: 0DJ08ZZ Inspection of Upper Intestinal Tract, Via Natural or Artificial Opening Endoscopic (ICD-10-PCS; 2018-08-26)
PROC: B42H1ZZ Computerized Tomography (CT Scan) of Bilateral Lower Extremity Arteries using Low Osmolar Contrast (ICD-10-PCS; 2018-08-30)
PROC: B41G1ZZ Fluoroscopy of Left Lower Extremity Arteries using Low Osmolar Contrast (ICD-10-PCS; 2018-09-02)
PROC: B41F1ZZ Fluoroscopy of Right Lower Extremity Arteries using Low Osmolar Contrast (ICD-10-PCS; 2018-09-02)
PROC: 30233N1 Transfusion of Nonautologous Red Blood Cells into Peripheral Vein, Percutaneous Approach (ICD-10-PCS; 2018-09-03)
PROC: 3E053GC Introduction of Other Therapeutic Substance into Peripheral Artery, Percutaneous Approach (ICD-10-PCS; 2018-09-03)
PROC: 30233N1 Transfusion of Nonautologous Red Blood Cells into Peripheral Vein, Percutaneous Approach (ICD-10-PCS; 2018-09-04)
PROC: 4A02XM4 Measurement of Cardiac Total Activity, External Approach (ICD-10-PCS; 2018-09-04)
PROC: 3E033HZ Introduction of Radioactive Substance into Peripheral Vein, Percutaneous Approach (ICD-10-PCS; 2018-09-04)
DX: K29.61 Other gastritis with bleeding (principal); I50.23 Acute on chronic systolic (congestive) heart failure; E43 Unspecified severe protein-calorie malnutrition; J18.9 Pneumonia, unspecified organism; I74.3 Embolism and thrombosis of arteries of the lower extremities; G93.40 Encephalopathy, unspecified; D62 Acute posthemorrhagic anemia; I13.0 Hypertensive heart and chronic kidney disease with heart failure and stage 1 through stage 4 chronic kidney disease, or unspecified chronic kidney disease; I42.9 Cardiomyopathy, unspecified; J44.0 Chronic obstructive pulmonary disease with (acute) lower respiratory infection; N17.9 Acute kidney failure, unspecified; K29.81 Duodenitis with bleeding; F31.9 Bipolar disorder, unspecified; I08.3 Combined rheumatic disorders of mitral, aortic and tricuspid valves; I37.1 Nonrheumatic pulmonary valve insufficiency; I48.0 Paroxysmal atrial fibrillation; I65.21 Occlusion and stenosis of right carotid artery; E87.6 Hypokalemia; J20.9 Acute bronchitis, unspecified; N18.3 Chronic kidney disease, stage 3 (moderate); I72.8 Aneurysm of other specified arteries; M54.9 Dorsalgia, unspecified; I72.3 Aneurysm of iliac artery; Z23 Encounter for immunization; Z79.82 Long term (current) use of aspirin; Z79.01 Long term (current) use of anticoagulants; Z79.899 Other long term (current) drug therapy; Z68.22 Body mass index [BMI] 22.0-22.9, adult
CPT/HCPCS: 36002; 36160; 93306; 96374; 99285; G0269; 36415; 70450; 71045; 71046; 73706; 75716; 76937; 78452; 80048; 80053; 80061; 80162; 80305; 80320; 81001; 82140; 82272; 82948; 83036; 83605; 83735; 83880; 84100; 84132; 84145; 84443; 84484; 85025; 85027; 85610; 85730; 86677; 86885; 86900; 86901; 86920; 87040; 87070; 90732; 93005; 93017; 93880; 93922; 93925; 93926; 93971; 97110; 97116; 97162; 97530; 99152; 99153; A4620; A6219; A9500; C1760; C1769; C1894; C9113; G0378; J0280; J0692; J0696; J1644; J1940; J2001; J2060; J2250; J2405; J3010; J3480; J3490; J7030; P9016; Q0163; Q9967

== ENCOUNTER 2018-09-29 12:15 | Inpatient (IN) | payer OTHER ==
[~2018-09-29] VITALS: Ht 188 cm; Wt 83.8 kg
[~2018-09-29 12:15] MED LIST changes: +ASPI-1071 PO; +COU5T PO; -FURO-149 PO; +FURO40TA4 PO; +PANT-47 PO; -RIVA15TA PO
[2018-09-29] MEDS ORDERED: normal saline 1000ML IV soln IV ONE (12:20)
[2018-09-29] MEDS ORDERED: diltiazem 5mg/ml 5ml inj. IV ONE (12:20)
[2018-09-29 12:52] LABS: CLARITY,URINE CLEAR (Clear); GLUCOSE, URINE NEGATIVE (Neg); KETONES,URINE NEGATIVE (Neg); LEUKOCYTE ESTERASE ,URINE NEGATIVE (Neg); NITRITES, URINE NEGATIVE (Neg); OCCULT BLOOD,URINE TRACE-INTACT (Neg); PROTEIN,URINE 100 mg/dl (Neg)
[2018-09-29 12:58] LABS: UA COLLECTION TYPE CLN CATCH MIDSTREAM
[2018-09-29 13:01] LABS: COLOR,URINE DARK YELLOW (Yellow); WBC,URINE NONE SEEN /HPF (0-4)
[2018-09-29 13:02] LABS: BACTERIA,URINE NONE SEEN /HPF (Neg); HYALINE CASTS 0-3 /LPF (NEGATIVE); MUCUS STRANDS FEW /LPF (Neg); RBC,URINE 0-2 /HPF (0-2); SQUAMOUS EPITHELIAL CELL,UR FEW /LPF (FEW)
[2018-09-29 13:03] LABS: BASOPHILS # (AUTO) 0.1 X10'3 (0-0.2); BASOPHILS % (AUTO) 1.7 % (0-1); EOSINOPHILS # (AUTO) 0.1 X10'3 (0-0.9); EOSINOPHILS % (AUTO) 1.5 % (0-6); HEMATOCRIT 32.8 % (42.0-52.0); HEMOGLOBIN 10.2 g/dl (14.0-17.9); LYMPHOCYTES # (AUTO) 0.7 X10'3 (1.1-4.8); LYMPHOCYTES % (AUTO) 7.7 % (21-51); MEAN CORPUSCULAR HEMOGLOBIN 27.3 PG (27.0-31.0); MEAN CORPUSCULAR HGB CONC 31.1 % (33.0-36.5); MEAN CORPUSCULAR VOLUME 87.8 FL (78-98); MEAN PLATELET VOLUME 8.2 FL (7.4-10.4); MONOCYTES # (AUTO) 0.8 X10'3 (0-0.9); MONOCYTES % (AUTO) 9.6 % (2-12); NEUTROPHILS # (AUTO) 6.8 X10'3 (1.8-7.7); NEUTROPHILS % (AUTO) 79.5 % (42-75); PLATELET COUNT 299 X10'3 (140-440); RED BLOOD COUNT 3.74 X10'6 (4.70-6.10); RED CELL DISTRIBUTION WIDTH 20.6 % (11.5-14.5); WHITE BLOOD COUNT 8.6 X10'3 (4.5-11.0)
[2018-09-29] MEDS ORDERED: pantoprazole 40 MG vial IV ONE (13:25)
[2018-09-29] MEDS ORDERED: furosemide 10 MG/1 ML 10ml inj IV ONE (13:30)
[2018-09-29 13:31] LABS: ALANINE AMINOTRANSFERASE 130 U/L (12-78); ALBUMIN 2.8 G/DL (3.4-5.0); ALBUMIN/GLOBULIN RATIO 0.6 (1.1-1.5); ALKALINE PHOSPHATASE 370 IU/L (46-116); ANION GAP 14 (8-16); ASPARTATE AMINO TRANSFERASE 84 U/L (10-37); BILIRUBIN,TOTAL 5.6 MG/DL (0.1-1.0); BLOOD UREA NITROGEN 77 MG/DL (7-18); BUN/CREATININE RATIO 36.7 (5.4-32.0); CALCIUM 8.9 MG/DL (8.5-10.1); CHLORIDE 101 MMOL/L (99-107); GLUCOSE 97 MG/DL (70-104); MAGNESIUM 2.3 MG/DL (1.5-2.4); POTASSIUM 5.7 MMOL/L (3.5-5.1); SODIUM 135 MMOL/L (135-145); TOTAL CARBON DIOXIDE 19.8 MMOL/L (24-32); TOTAL PROTEIN 7.6 G/DL (6.4-8.2); eGFR 31 ML/MIN
[2018-09-29 13:56] LABS: ANISOCYTOSIS 3+; HYPOGRANULAR PLATELETS FEW; PLATELET ESTIMATE NORMAL
[2018-09-29] MEDS ORDERED: mag hydrox/Alum hydrox/simeth 30ml oral suspension PO PRN (14:25)
[2018-09-29] MEDS ORDERED: magnesium hydroxide 30ml (MOM) UD suspension PO PRN (14:25)
[2018-09-29] MEDS ORDERED: ondansetron/PF 4mg/2ml inj IV PRN (14:25)
[2018-09-29] MEDS ORDERED: acetaminophen 325mg tablet PO PRN (14:25)
[2018-09-29] MEDS: diltiazem-D5W 125mg/125ml 125 ML IV SCH (14:37)
[2018-09-29 19:00] VITALS: BP 122/81
[2018-09-29 21:00] VITALS: BP 120/85
[2018-09-29] MEDS: furosemide 10 MG/1 ML 10ml inj IV SCH (22:07)
[2018-09-29] MEDS: docusate sod 100mg capsule PO SCH (22:07)
[2018-09-29 23:00] VITALS: BP 120/85
[2018-09-30] VITALS (9 sets, daily range): BP systolic 111–132; BP diastolic 81–99
[2018-09-30 01:13] LABS: ALBUMIN 2.5 G/DL (3.4-5.0); ANION GAP 10 (8-16); BLOOD UREA NITROGEN 74 MG/DL (7-18); CALCIUM 8.5 MG/DL (8.5-10.1); CHLORIDE 99 MMOL/L (99-107); CREATININE 2.31 MG/DL (0.60-1.10); GLUCOSE 102 MG/DL (70-104); SODIUM 130 MMOL/L (135-145); TOTAL CARBON DIOXIDE 20.7 MMOL/L (24-32); eGFR 28 ML/MIN
[2018-09-30 02:33] LABS: BASOPHILS % (AUTO) 0.3 % (0-1); EOSINOPHILS # (AUTO) 0.2 X10'3 (0-0.9); EOSINOPHILS % (AUTO) 2.8 % (0-6); HEMATOCRIT 29.1 % (42.0-52.0); HEMOGLOBIN 9.2 g/dl (14.0-17.9); LYMPHOCYTES # (AUTO) 0.6 X10'3 (1.1-4.8); LYMPHOCYTES % (AUTO) 8.6 % (21-51); MEAN CORPUSCULAR HEMOGLOBIN 27.7 PG (27.0-31.0); MEAN CORPUSCULAR HGB CONC 31.6 % (33.0-36.5); MEAN CORPUSCULAR VOLUME 87.6 FL (78-98); MEAN PLATELET VOLUME 8.6 FL (7.4-10.4); MONOCYTES % (AUTO) 13.7 % (2-12); NEUTROPHILS # (AUTO) 5.5 X10'3 (1.8-7.7); NEUTROPHILS % (AUTO) 74.6 % (42-75); PLATELET COUNT 237 X10'3 (140-440); RED BLOOD COUNT 3.32 X10'6 (4.70-6.10); RED CELL DISTRIBUTION WIDTH 20.5 % (11.5-14.5); WHITE BLOOD COUNT 7.4 X10'3 (4.5-11.0)
[2018-09-30 03:15] LABS: ANISOCYTOSIS 2+; PLATELET ESTIMATE NORMAL
[2018-09-30] MEDS: diltiazem-D5W 125mg/125ml 125 ML IV SCH ×2 (03:39→04:10)
[2018-09-30] MEDS ORDERED: digoxin 125mcg (0.125mg) tablet PO SCH (08:00)
[2018-09-30] MEDS: aspirin 81mg tablet.DR PO SCH (09:06)
[2018-09-30] MEDS: docusate sod 100mg capsule PO SCH ×2 (09:06→20:00)
[2018-09-30] MEDS: furosemide 10 MG/1 ML 10ml inj IV SCH ×2 (09:07→22:36)
[2018-09-30 09:12] LABS: ALANINE AMINOTRANSFERASE 107 U/L (12-78); ALBUMIN 2.5 G/DL (3.4-5.0); ALKALINE PHOSPHATASE 318 IU/L (46-116); ANION GAP 9 (8-16); ASPARTATE AMINO TRANSFERASE 60 U/L (10-37); BLOOD UREA NITROGEN 75 MG/DL (7-18); BUN/CREATININE RATIO 33.9 (5.4-32.0); CALCIUM 8.2 MG/DL (8.5-10.1); CHLORIDE 101 MMOL/L (99-107); CREATININE 2.21 MG/DL (0.60-1.10); POTASSIUM 4.5 MMOL/L (3.5-5.1); SODIUM 132 MMOL/L (135-145); TOTAL CARBON DIOXIDE 22.2 MMOL/L (24-32); eGFR 30 ML/MIN
[2018-09-30 09:18] LABS: ALBUMIN/GLOBULIN RATIO 0.6 (1.1-1.5); GLUCOSE 118 MG/DL (70-104); TOTAL PROTEIN 6.8 G/DL (6.4-8.2)
[2018-09-30] MEDS: metoprolol succinate 25mg (24-HOUR) SR. Tablet PO SCH (09:19)
[2018-09-30 09:24] LABS: BASOPHILS % (AUTO) 0.1 % (0-1); EOSINOPHILS # (AUTO) 0.1 X10'3 (0-0.9); EOSINOPHILS % (AUTO) 1.9 % (0-6); HEMATOCRIT 29.2 % (42.0-52.0); HEMOGLOBIN 8.9 g/dl (14.0-17.9); LYMPHOCYTES # (AUTO) 0.6 X10'3 (1.1-4.8); MEAN CORPUSCULAR HEMOGLOBIN 26.8 PG (27.0-31.0); MEAN CORPUSCULAR HGB CONC 30.3 % (33.0-36.5); MEAN CORPUSCULAR VOLUME 88.6 FL (78-98); MEAN PLATELET VOLUME 8.3 FL (7.4-10.4); MONOCYTES # (AUTO) 0.8 X10'3 (0-0.9); MONOCYTES % (AUTO) 10.3 % (2-12); NEUTROPHILS # (AUTO) 6.2 X10'3 (1.8-7.7); NEUTROPHILS % (AUTO) 79.7 % (42-75); PLATELET COUNT 243 X10'3 (140-440); RED CELL DISTRIBUTION WIDTH 20.3 % (11.5-14.5); WHITE BLOOD COUNT 7.8 X10'3 (4.5-11.0)
[2018-09-30 10:50] LABS: ANISOCYTOSIS 2+; PLATELET ESTIMATE NORMAL
[2018-09-30 10:51] LABS: HYPOCHROMASIA 1+
[2018-10-01] VITALS (11 sets, daily range): BP systolic 97–134; BP diastolic 72–107
[2018-10-01] MEDS: diltiazem-D5W 125mg/125ml 125 ML IV SCH ×2 (05:57)
[2018-10-01 06:32] LABS: BASOPHILS % (AUTO) 0.2 % (0-1); EOSINOPHILS # (AUTO) 0.3 X10'3 (0-0.9); EOSINOPHILS % (AUTO) 4.1 % (0-6); HEMATOCRIT 28.1 % (42.0-52.0); HEMOGLOBIN 8.7 g/dl (14.0-17.9); LYMPHOCYTES # (AUTO) 0.6 X10'3 (1.1-4.8); LYMPHOCYTES % (AUTO) 8.6 % (21-51); MEAN CORPUSCULAR HEMOGLOBIN 27.1 PG (27.0-31.0); MEAN CORPUSCULAR HGB CONC 30.8 % (33.0-36.5); MEAN CORPUSCULAR VOLUME 87.9 FL (78-98); MEAN PLATELET VOLUME 7.8 FL (7.4-10.4); MONOCYTES # (AUTO) 0.8 X10'3 (0-0.9); MONOCYTES % (AUTO) 11.1 % (2-12); NEUTROPHILS # (AUTO) 5.2 X10'3 (1.8-7.7); PLATELET COUNT 226 X10'3 (140-440); RED CELL DISTRIBUTION WIDTH 20.3 % (11.5-14.5); WHITE BLOOD COUNT 6.9 X10'3 (4.5-11.0)
[2018-10-01 06:53] LABS: ANISOCYTOSIS 2+; PLATELET ESTIMATE NORMAL; POLYCHROMASIA 1+
[2018-10-01 06:54] LABS: ALANINE AMINOTRANSFERASE 107 U/L (12-78); ALBUMIN 2.4 G/DL (3.4-5.0); ALBUMIN/GLOBULIN RATIO 0.6 (1.1-1.5); ALKALINE PHOSPHATASE 333 IU/L (46-116); ANION GAP 10 (8-16); ASPARTATE AMINO TRANSFERASE 73 U/L (10-37); BILIRUBIN,TOTAL 3.3 MG/DL (0.1-1.0); BLOOD UREA NITROGEN 68 MG/DL (7-18); BUN/CREATININE RATIO 29.8 (5.4-32.0); CALCIUM 8.3 MG/DL (8.5-10.1); CHLORIDE 102 MMOL/L (99-107); CREATININE 2.28 MG/DL (0.60-1.10); GLUCOSE 86 MG/DL (70-104); HYPOCHROMASIA 2+; POTASSIUM 4.3 MMOL/L (3.5-5.1); SODIUM 135 MMOL/L (135-145); TOTAL CARBON DIOXIDE 23.4 MMOL/L (24-32); TOTAL PROTEIN 6.7 G/DL (6.4-8.2); eGFR 29 ML/MIN
[2018-10-01] MEDS: metoprolol succinate 25mg (24-HOUR) SR. Tablet PO SCH (09:47)
[2018-10-01] MEDS: aspirin 81mg tablet.DR PO SCH (09:47)
[2018-10-01] MEDS: docusate sod 100mg capsule PO SCH ×2 (09:47→21:24)
[2018-10-01] MEDS: furosemide 10 MG/1 ML 10ml inj IV SCH ×2 (09:50→21:25)
[2018-10-02 03:00] VITALS: BP 114/94
[2018-10-02 05:41] LABS: BASOPHILS % (AUTO) 0.3 % (0-1); EOSINOPHILS # (AUTO) 0.2 X10'3 (0-0.9); EOSINOPHILS % (AUTO) 2.8 % (0-6); HEMATOCRIT 27.5 % (42.0-52.0); HEMOGLOBIN 8.5 g/dl (14.0-17.9); LYMPHOCYTES # (AUTO) 0.5 X10'3 (1.1-4.8); LYMPHOCYTES % (AUTO) 7.5 % (21-51); MEAN CORPUSCULAR HEMOGLOBIN 26.9 PG (27.0-31.0); MEAN CORPUSCULAR HGB CONC 30.9 % (33.0-36.5); MEAN CORPUSCULAR VOLUME 87.1 FL (78-98); MEAN PLATELET VOLUME 7.8 FL (7.4-10.4); MONOCYTES # (AUTO) 0.7 X10'3 (0-0.9); MONOCYTES % (AUTO) 10.7 % (2-12); NEUTROPHILS # (AUTO) 5.5 X10'3 (1.8-7.7); NEUTROPHILS % (AUTO) 78.7 % (42-75); PLATELET COUNT 209 X10'3 (140-440); RED BLOOD COUNT 3.15 X10'6 (4.70-6.10); RED CELL DISTRIBUTION WIDTH 20.1 % (11.5-14.5)
[2018-10-02 06:00] VITALS: BP 118/96
[2018-10-02 06:07] LABS: ALANINE AMINOTRANSFERASE 112 U/L (12-78); ALBUMIN 2.4 G/DL (3.4-5.0); ALKALINE PHOSPHATASE 361 IU/L (46-116); ANION GAP 9 (8-16); ASPARTATE AMINO TRANSFERASE 79 U/L (10-37); BILIRUBIN,TOTAL 3.6 MG/DL (0.1-1.0); BLOOD UREA NITROGEN 58 MG/DL (7-18); BUN/CREATININE RATIO 29.6 (5.4-32.0); CALCIUM 8.2 MG/DL (8.5-10.1); CHLORIDE 103 MMOL/L (99-107); CREATININE 1.96 MG/DL (0.60-1.10); GLUCOSE 82 MG/DL (70-104); POTASSIUM 3.9 MMOL/L (3.5-5.1); SODIUM 137 MMOL/L (135-145); TOTAL CARBON DIOXIDE 25.1 MMOL/L (24-32); eGFR 34 ML/MIN
[2018-10-02 06:22] LABS: ALBUMIN/GLOBULIN RATIO 0.6 (1.1-1.5); TOTAL PROTEIN 6.7 G/DL (6.4-8.2)
[2018-10-02 07:16] LABS: ANISOCYTOSIS 2+; PLATELET ESTIMATE NORMAL
[2018-10-02 07:18] LABS: HYPOCHROMASIA 1+; POLYCHROMASIA FEW; TARGET CELLS FEW
[2018-10-02] MEDS: docusate sod 100mg capsule PO SCH ×2 (08:40→20:09)
[2018-10-02] MEDS: aspirin 81mg tablet.DR PO SCH (08:40)
[2018-10-02] MEDS ORDERED: sincalide inj 0 MCG in normal saline 50ml IV soln 50 ML IV ONE (08:40)
[2018-10-02] MEDS: metoprolol succinate 25mg (24-HOUR) SR. Tablet PO SCH (08:40)
[2018-10-02] MEDS: furosemide 10 MG/1 ML 10ml inj IV SCH ×2 (08:41→20:12)
[2018-10-02 11:00] VITALS: BP 125/105
[2018-10-02] MEDS: diltiazem 30mg tablet PO SCH ×3 (11:08→20:11)
[2018-10-02] MEDS: diltiazem-D5W 125mg/125ml 125 ML IV SCH (13:25)
[2018-10-02 19:00] VITALS: BP 121/89
[2018-10-02] MEDS: apixaban 2.5mg tablet PO SCH (20:10)
[2018-10-02 23:00] VITALS: BP 113/82
[2018-10-03] MEDS: diltiazem 30mg tablet PO SCH ×3 (02:31→13:55)
[2018-10-03 03:00] VITALS: BP 112/84
[2018-10-03 06:11] LABS: BASOPHILS % (AUTO) 0.6 % (0-1); EOSINOPHILS # (AUTO) 0.2 X10'3 (0-0.9); EOSINOPHILS % (AUTO) 3.3 % (0-6); HEMATOCRIT 29.7 % (42.0-52.0); HEMOGLOBIN 9.2 g/dl (14.0-17.9); LYMPHOCYTES # (AUTO) 0.6 X10'3 (1.1-4.8); LYMPHOCYTES % (AUTO) 9.2 % (21-51); MEAN CORPUSCULAR HEMOGLOBIN 27.2 PG (27.0-31.0); MEAN CORPUSCULAR VOLUME 87.6 FL (78-98); MEAN PLATELET VOLUME 8.3 FL (7.4-10.4); MONOCYTES # (AUTO) 0.8 X10'3 (0-0.9); MONOCYTES % (AUTO) 12.6 % (2-12); NEUTROPHILS # (AUTO) 4.6 X10'3 (1.8-7.7); NEUTROPHILS % (AUTO) 74.3 % (42-75); PLATELET COUNT 177 X10'3 (140-440); RED BLOOD COUNT 3.39 X10'6 (4.70-6.10); RED CELL DISTRIBUTION WIDTH 20.6 % (11.5-14.5); WHITE BLOOD COUNT 6.1 X10'3 (4.5-11.0)
[2018-10-03 06:32] LABS: ALANINE AMINOTRANSFERASE 120 U/L (12-78); ALBUMIN 2.3 G/DL (3.4-5.0); ALBUMIN/GLOBULIN RATIO 0.5 (1.1-1.5); ALKALINE PHOSPHATASE 407 IU/L (46-116); ANION GAP 7 (8-16); ASPARTATE AMINO TRANSFERASE 95 U/L (10-37); BILIRUBIN,TOTAL 3.2 MG/DL (0.1-1.0); BLOOD UREA NITROGEN 49 MG/DL (7-18); BUN/CREATININE RATIO 27.8 (5.4-32.0); CALCIUM 8.4 MG/DL (8.5-10.1); CHLORIDE 103 MMOL/L (99-107); CREATININE 1.76 MG/DL (0.60-1.10); GLUCOSE 89 MG/DL (70-104); SODIUM 137 MMOL/L (135-145); TOTAL CARBON DIOXIDE 27.2 MMOL/L (24-32); TOTAL PROTEIN 6.8 G/DL (6.4-8.2); eGFR 39 ML/MIN
[2018-10-03 06:44] LABS: ANISOCYTOSIS 3+; HYPOCHROMASIA 1+; PLATELET ESTIMATE NORMAL; POLYCHROMASIA 1+
[2018-10-03 06:45] LABS: ROULEAUX 1+; SCHISTOCYTES FEW; TARGET CELLS 1+
[2018-10-03 07:00] VITALS: BP 108/78
[2018-10-03] MEDS: aspirin 81mg tablet.DR PO SCH (08:07)
[2018-10-03] MEDS: apixaban 2.5mg tablet PO SCH ×2 (08:07→20:58)
[2018-10-03] MEDS: furosemide 10 MG/1 ML 10ml inj IV SCH ×2 (08:07→20:58)
[2018-10-03] MEDS: docusate sod 100mg capsule PO SCH ×2 (08:07→20:00)
[2018-10-03] MEDS: metoprolol succinate 25mg (24-HOUR) SR. Tablet PO SCH (08:07)
[2018-10-03 11:00] VITALS: BP 114/78
[2018-10-03 15:00] VITALS: BP 110/81
[2018-10-03 18:00] VITALS: BP 103/75
[2018-10-03 22:00] VITALS: BP 122/92
[2018-10-04] VITALS (7 sets, daily range): BP systolic 114–135; BP diastolic 66–105
[2018-10-04 06:52] LABS: BASOPHILS % (AUTO) 0.2 % (0-1); EOSINOPHILS # (AUTO) 0.2 X10'3 (0-0.9); EOSINOPHILS % (AUTO) 3.2 % (0-6); HEMATOCRIT 28.5 % (42.0-52.0); HEMOGLOBIN 8.8 g/dl (14.0-17.9); LYMPHOCYTES # (AUTO) 0.8 X10'3 (1.1-4.8); LYMPHOCYTES % (AUTO) 13.9 % (21-51); MEAN CORPUSCULAR HGB CONC 30.8 % (33.0-36.5); MEAN CORPUSCULAR VOLUME 87.6 FL (78-98); MEAN PLATELET VOLUME 8.6 FL (7.4-10.4); MONOCYTES # (AUTO) 0.7 X10'3 (0-0.9); MONOCYTES % (AUTO) 12.1 % (2-12); NEUTROPHILS # (AUTO) 4.2 X10'3 (1.8-7.7); NEUTROPHILS % (AUTO) 70.6 % (42-75); PLATELET COUNT 185 X10'3 (140-440); RED BLOOD COUNT 3.25 X10'6 (4.70-6.10); RED CELL DISTRIBUTION WIDTH 20.8 % (11.5-14.5); WHITE BLOOD COUNT 5.9 X10'3 (4.5-11.0)
[2018-10-04 07:18] LABS: ALANINE AMINOTRANSFERASE 131 U/L (12-78); ALBUMIN 2.4 G/DL (3.4-5.0); ALBUMIN/GLOBULIN RATIO 0.5 (1.1-1.5); ALKALINE PHOSPHATASE 436 IU/L (46-116); ANION GAP 7 (8-16); ASPARTATE AMINO TRANSFERASE 100 U/L (10-37); BILIRUBIN,TOTAL 3.2 MG/DL (0.1-1.0); BLOOD UREA NITROGEN 50 MG/DL (7-18); BUN/CREATININE RATIO 25.8 (5.4-32.0); CALCIUM 8.5 MG/DL (8.5-10.1); CHLORIDE 102 MMOL/L (99-107); CREATININE 1.94 MG/DL (0.60-1.10); GLUCOSE 79 MG/DL (70-104); POTASSIUM 3.8 MMOL/L (3.5-5.1); SODIUM 138 MMOL/L (135-145); TOTAL CARBON DIOXIDE 28.6 MMOL/L (24-32); eGFR 34 ML/MIN
[2018-10-04] MEDS ORDERED: diltiazem CD 180mg cap (once-daily) PO SCH (08:00)
[2018-10-04] MEDS: docusate sod 100mg capsule PO SCH ×2 (09:53→20:02)
[2018-10-04] MEDS: furosemide 10 MG/1 ML 10ml inj IV SCH ×2 (09:53→20:03)
[2018-10-04] MEDS: metoprolol succinate 25mg (24-HOUR) SR. Tablet PO SCH (09:53)
[2018-10-04] MEDS: aspirin 81mg tablet.DR PO SCH (09:53)
[2018-10-04] MEDS: apixaban 2.5mg tablet PO SCH ×2 (09:53→20:02)
[2018-10-04 10:31] LABS: PLATELET ESTIMATE NORMAL; POIKILOCYTOSIS FEW; POLYCHROMASIA 1+
[2018-10-04 10:32] LABS: TARGET CELLS FEW
[2018-10-04] MEDS: diltiazem 30mg tablet PO SCH (20:32)
[2018-10-05] VITALS (7 sets, daily range): BP systolic 108–130; BP diastolic 73–101
[2018-10-05] MEDS: diltiazem 30mg tablet PO SCH ×4 (02:42→20:03)
[2018-10-05 06:57] LABS: ALANINE AMINOTRANSFERASE 136 U/L (12-78); ALBUMIN 2.5 G/DL (3.4-5.0); ALBUMIN/GLOBULIN RATIO 0.6 (1.1-1.5); ALKALINE PHOSPHATASE 430 IU/L (46-116); ANION GAP 9 (8-16); ASPARTATE AMINO TRANSFERASE 100 U/L (10-37); BILIRUBIN,TOTAL 3.3 MG/DL (0.1-1.0); BLOOD UREA NITROGEN 47 MG/DL (7-18); BUN/CREATININE RATIO 28.8 (5.4-32.0); CALCIUM 8.7 MG/DL (8.5-10.1); CHLORIDE 103 MMOL/L (99-107); CREATININE 1.63 MG/DL (0.60-1.10); GLUCOSE 85 MG/DL (70-104); POTASSIUM 3.8 MMOL/L (3.5-5.1); SODIUM 140 MMOL/L (135-145); TOTAL CARBON DIOXIDE 28.5 MMOL/L (24-32); TOTAL PROTEIN 6.8 G/DL (6.4-8.2); eGFR 42 ML/MIN
[2018-10-05] MEDS: furosemide 10 MG/1 ML 10ml inj IV SCH ×2 (08:04→20:04)
[2018-10-05] MEDS: docusate sod 100mg capsule PO SCH ×2 (08:05→20:03)
[2018-10-05] MEDS: aspirin 81mg tablet.DR PO SCH (08:05)
[2018-10-05] MEDS: apixaban 2.5mg tablet PO SCH ×2 (08:05→20:03)
[2018-10-05] MEDS: metoprolol succinate 25mg (24-HOUR) SR. Tablet PO SCH (08:07)
[2018-10-06] MEDS: diltiazem 30mg tablet PO SCH ×4 (02:41→20:43)
[2018-10-06 03:00] VITALS: BP 134/93
[2018-10-06] MEDS: docusate sod 100mg capsule PO SCH ×2 (07:42→20:43)
[2018-10-06] MEDS: furosemide 10 MG/1 ML 10ml inj IV SCH ×2 (07:42→20:50)
[2018-10-06] MEDS: apixaban 2.5mg tablet PO SCH ×2 (07:42→20:43)
[2018-10-06] MEDS: aspirin 81mg tablet.DR PO SCH (07:42)
[2018-10-06] MEDS: metoprolol succinate 25mg (24-HOUR) SR. Tablet PO SCH (07:42)
[2018-10-06 09:25] LABS: BASOPHILS % (AUTO) 0 % (0-1); EOSINOPHILS # (AUTO) 0.1 X10'3 (0-0.9); EOSINOPHILS % (AUTO) 2.6 % (0-6); HEMATOCRIT 29.4 % (42.0-52.0); LYMPHOCYTES # (AUTO) 0.6 X10'3 (1.1-4.8); LYMPHOCYTES % (AUTO) 11.2 % (21-51); MEAN CORPUSCULAR HEMOGLOBIN 26.6 PG (27.0-31.0); MEAN CORPUSCULAR HGB CONC 30.5 % (33.0-36.5); MEAN CORPUSCULAR VOLUME 87.4 FL (78-98); MEAN PLATELET VOLUME 8.5 FL (7.4-10.4); MONOCYTES # (AUTO) 0.5 X10'3 (0-0.9); MONOCYTES % (AUTO) 9.9 % (2-12); NEUTROPHILS # (AUTO) 4.1 X10'3 (1.8-7.7); NEUTROPHILS % (AUTO) 76.3 % (42-75); PLATELET COUNT 185 X10'3 (140-440); RED BLOOD COUNT 3.37 X10'6 (4.70-6.10); RED CELL DISTRIBUTION WIDTH 20.5 % (11.5-14.5); WHITE BLOOD COUNT 5.3 X10'3 (4.5-11.0)
[2018-10-06 09:30] LABS: ALANINE AMINOTRANSFERASE 149 U/L (12-78); ALBUMIN 2.4 G/DL (3.4-5.0); ALBUMIN/GLOBULIN RATIO 0.5 (1.1-1.5); ALKALINE PHOSPHATASE 481 IU/L (46-116); ANION GAP 6 (8-16); ASPARTATE AMINO TRANSFERASE 105 U/L (10-37); BILIRUBIN,TOTAL 3.2 MG/DL (0.1-1.0); BLOOD UREA NITROGEN 51 MG/DL (7-18); BUN/CREATININE RATIO 27.7 (5.4-32.0); CALCIUM 8.5 MG/DL (8.5-10.1); CHLORIDE 104 MMOL/L (99-107); CREATININE 1.84 MG/DL (0.60-1.10); GLUCOSE 126 MG/DL (70-104); POTASSIUM 3.9 MMOL/L (3.5-5.1); SODIUM 142 MMOL/L (135-145); TOTAL CARBON DIOXIDE 31.8 MMOL/L (24-32); TOTAL PROTEIN 7.1 G/DL (6.4-8.2); eGFR 37 ML/MIN
[2018-10-06] MEDS ORDERED: APIX2.5T PO (10:15)
[2018-10-06] MEDS ORDERED: METO-395 PO (10:15)
[2018-10-06] MEDS ORDERED: POTA20TA19 PO (10:15)
[2018-10-06] MEDS ORDERED: DILT120C62 PO (10:15)
[2018-10-06 11:00] VITALS: BP 125/106
[2018-10-06 11:01] LABS: ANISOCYTOSIS 3+; HYPOCHROMASIA 1+; PLATELET ESTIMATE NORMAL; TARGET CELLS FEW
[2018-10-06 16:20] VITALS: BP 126/70
[2018-10-06 19:00] VITALS: BP 119/96
[2018-10-06 23:00] VITALS: BP 134/96
[2018-10-07] MEDS: diltiazem 30mg tablet PO SCH ×2 (02:36→08:42)
[2018-10-07 03:00] VITALS: BP 107/86
[2018-10-07 06:00] VITALS: BP 127/107
[2018-10-07] MEDS: docusate sod 100mg capsule PO SCH (08:00)
[2018-10-07] MEDS: furosemide 10 MG/1 ML 10ml inj IV SCH (08:41)
[2018-10-07] MEDS: apixaban 2.5mg tablet PO SCH (08:42)
[2018-10-07] MEDS: metoprolol succinate 25mg (24-HOUR) SR. Tablet PO SCH (08:42)
[2018-10-07] MEDS: aspirin 81mg tablet.DR PO SCH (08:42)
== END 2018-10-07 11:30 | disposition home or self-care (01) | DRG 682 ==
LOC: ER 12:15 → ED HOLD 14:21 → PCU 3S 19:40 → CMPBEDREQ 19:55
PROVIDERS: ADMIT Family Medicine; ATTEND Internal Medicine
PROC: CF141ZZ Planar Nuclear Medicine Imaging of Gallbladder using Technetium 99m (Tc-99m) (ICD-10-PCS; principal; 2018-10-02)
DX: N17.9 Acute kidney failure, unspecified (principal); I50.23 Acute on chronic systolic (congestive) heart failure; G93.41 Metabolic encephalopathy; I13.0 Hypertensive heart and chronic kidney disease with heart failure and stage 1 through stage 4 chronic kidney disease, or unspecified chronic kidney disease; I48.91 Unspecified atrial fibrillation; D64.9 Anemia, unspecified; F31.9 Bipolar disorder, unspecified; F43.10 Post-traumatic stress disorder, unspecified; S30.91XA Unspecified superficial injury of lower back and pelvis, initial encounter; X58.XXXA Exposure to other specified factors, initial encounter; K52.9 Noninfective gastroenteritis and colitis, unspecified; I25.10 Atherosclerotic heart disease of native coronary artery without angina pectoris; I65.29 Occlusion and stenosis of unspecified carotid artery; M54.9 Dorsalgia, unspecified; I35.0 Nonrheumatic aortic (valve) stenosis; I73.9 Peripheral vascular disease, unspecified; J44.9 Chronic obstructive pulmonary disease, unspecified; K74.60 Unspecified cirrhosis of liver; N18.3 Chronic kidney disease, stage 3 (moderate); R16.0 Hepatomegaly, not elsewhere classified; R74.8 Abnormal levels of other serum enzymes; R94.5 Abnormal results of liver function studies; Z79.01 Long term (current) use of anticoagulants; Z79.899 Other long term (current) drug therapy; Z86.718 Personal history of other venous thrombosis and embolism; Y93.89 Activity, other specified; Y92.89 Other specified places as the place of occurrence of the external cause; Y99.8 Other external cause status
CPT/HCPCS: 36415; 71045; 74176; 74181; 76700; 78227; 80048; 80053; 80162; 81001; 82140; 83605; 83735; 83880; 84145; 84484; 85025; 87040; 87070; 93005; 96361; 96374; 97110; 97116; 97162; 97530; 99291; A9537; C9113; G0378; J1940; J3490

== ENCOUNTER 2018-10-23 15:38 | Inpatient (IN) | payer OTHER ==
[~2018-10-23] VITALS: Ht 182.9 cm; Wt 72.0 kg
[~2018-10-23 15:38] MED LIST changes: +APIX2.5T PO; -COU5T PO; -DIGO125T PO; +DILT120C62 PO; -LISI-604 PO; +METO-395 PO; -METO100T7 PO; -PANT-47 PO; +POTA20TA19 PO
[2018-10-23 16:12] LABS: BASOPHILS % (AUTO) 0.2 % (0-1); EOSINOPHILS % (AUTO) 0.7 % (0-6); HEMATOCRIT 32.2 % (42.0-52.0); HEMOGLOBIN 9.8 g/dl (14.0-17.9); LYMPHOCYTES # (AUTO) 0.5 X10'3 (1.1-4.8); LYMPHOCYTES % (AUTO) 8.6 % (21-51); MEAN CORPUSCULAR HGB CONC 30.4 % (33.0-36.5); MEAN CORPUSCULAR VOLUME 85.5 FL (78-98); MEAN PLATELET VOLUME 8.6 FL (7.4-10.4); MONOCYTES # (AUTO) 0.8 X10'3 (0-0.9); MONOCYTES % (AUTO) 14.1 % (2-12); NEUTROPHILS # (AUTO) 4.5 X10'3 (1.8-7.7); NEUTROPHILS % (AUTO) 76.4 % (42-75); PLATELET COUNT 252 X10'3 (140-440); RED BLOOD COUNT 3.77 X10'6 (4.70-6.10); RED CELL DISTRIBUTION WIDTH 20.9 % (11.5-14.5); WHITE BLOOD COUNT 5.9 X10'3 (4.5-11.0)
[2018-10-23 16:31] LABS: ALANINE AMINOTRANSFERASE 142 U/L (12-78); ALBUMIN 2.6 G/DL (3.4-5.0); ALKALINE PHOSPHATASE 535 IU/L (46-116); ANION GAP 10 (8-16); ASPARTATE AMINO TRANSFERASE 79 U/L (10-37); BILIRUBIN,TOTAL 3.3 MG/DL (0.1-1.0); BLOOD UREA NITROGEN 54 MG/DL (7-18); BUN/CREATININE RATIO 26.2 (5.4-32.0); CALCIUM 8.6 MG/DL (8.5-10.1); CHLORIDE 104 MMOL/L (99-107); CREATININE 2.06 MG/DL (0.60-1.10); GLUCOSE 124 MG/DL (70-104); SODIUM 138 MMOL/L (135-145); TOTAL CARBON DIOXIDE 24.2 MMOL/L (24-32); eGFR 32 ML/MIN
[2018-10-23] MEDS ORDERED: diltiazem 5mg/ml 5ml inj. IV ONE (16:35)
[2018-10-23 16:42] LABS: ALBUMIN/GLOBULIN RATIO 0.6 (1.1-1.5); TOTAL PROTEIN 7.2 G/DL (6.4-8.2)
[2018-10-23 16:44] LABS: POTASSIUM 6.3 MMOL/L (3.5-5.1)
[2018-10-23] MEDS ORDERED: dextrose 50%-water 50ml dispensing syringe IV ONE (16:50)
[2018-10-23] MEDS ORDERED: insulin regular, human 10 units/0.1 ml syringe IV ONE (16:50)
[2018-10-23] MEDS ORDERED: sodium polystyrene sulfonate 15gm/60ml oral suspension PO ONE (16:50)
[2018-10-23 16:53] LABS: INR 1.2 INR; PARTIAL THROMBOPLASTIN TIME 29 SECONDS (22-32); PROTHROMBIN TIME 12.5 SECONDS (9.0-12.0)
[2018-10-23] MEDS ORDERED: calcium gluconate inj. 1 GM in normal saline 100ml IV soln 90 ML IV ONE (16:55)
[2018-10-23 17:05] LABS: ANISOCYTOSIS 3+; PLATELET ESTIMATE NORMAL
[2018-10-23 17:06] LABS: POLYCHROMASIA FEW; TARGET CELLS 1+
[2018-10-23] MEDS ORDERED: furosemide 10 MG/1 ML 10ml inj IV ONE (17:10)
[2018-10-23] MEDS ORDERED: normal saline 1000ml 1,000 ML IV SCH (17:28)
[2018-10-23] MEDS ORDERED: ondansetron/PF 4mg/2ml inj IV PRN (17:30)
[2018-10-23] MEDS ORDERED: HYDROcodone/acetaminophen 5mg/325mg tablet PO PRN (17:30)
[2018-10-23] MEDS ORDERED: morphine 2 MG/ML inj. syringe IV PRN (17:30)
[2018-10-23] MEDS ORDERED: acetaminophen 325mg tablet PO PRN ×2 (17:30)
[2018-10-23] MEDS: aspirin 325mg tablet PO ONE ×2 (17:31→17:37)
[2018-10-23 18:15] LABS: ABG BASE EXCESS -2.4 mmol/L (-2.0-3.0); ABG HCO3 21.5 mmol/L (22.0-26.0); ABG OXYGEN SATURATION 95.4 % (95-98); ABG PCO2 (T) 33.6 mmHg (35.0-48.0); ABG PH (T) 7.424 (7.350-7.450); ABG PO2 (T) 79.8 mmHg (83-108); ALLEN'S TEST Positive; FCOHb 1.3 % (0.5-1.5); FMetHb 0.1 % (0.3-1.12); FO2Hb 94.1 % (94-100); TOTAL HEMOGLOBIN 10.4 G/dl (14.0-18.0)
[2018-10-23 19:09] VITALS: BP 123/89
[2018-10-23] MEDS: apixaban 2.5mg tablet PO SCH (19:55)
[2018-10-23] MEDS: docusate sod 100mg capsule PO SCH (19:56)
[2018-10-23] MEDS: albuterol 2.5 MG/3 ML nebule NEB SCH ×2 (20:00→22:50)
[2018-10-23] MEDS ORDERED: diltiazem 30mg tablet PO ONE (20:20)
[2018-10-23] MEDS ORDERED: temazepam 15mg capsule PO PRN (21:00)
[2018-10-23 22:00] VITALS: BP 117/97
[2018-10-24 02:00] VITALS: BP 126/104
[2018-10-24] MEDS ORDERED: diltiazem 30mg tablet PO ONE (02:55)
[2018-10-24] MEDS: albuterol 2.5 MG/3 ML nebule NEB SCH ×5 (03:18→20:00)
[2018-10-24] MEDS ORDERED: sodium polystyrene sulfonate 15gm/60ml oral suspension PO ONE (05:30)
[2018-10-24 06:00] VITALS: BP 111/83
[2018-10-24 06:04] LABS: ALANINE AMINOTRANSFERASE 130 U/L (12-78); ALBUMIN 2.5 G/DL (3.4-5.0); ALBUMIN/GLOBULIN RATIO 0.6 (1.1-1.5); ALKALINE PHOSPHATASE 483 IU/L (46-116); ANION GAP 9 (8-16); ASPARTATE AMINO TRANSFERASE 71 U/L (10-37); BILIRUBIN,TOTAL 3.3 MG/DL (0.1-1.0); BLOOD UREA NITROGEN 57 MG/DL (7-18); BUN/CREATININE RATIO 27.8 (5.4-32.0); CALCIUM 8.8 MG/DL (8.5-10.1); CHLORIDE 104 MMOL/L (99-107); CREATININE 2.05 MG/DL (0.60-1.10); GLUCOSE 92 MG/DL (70-104); POTASSIUM 5.3 MMOL/L (3.5-5.1); SODIUM 139 MMOL/L (135-145); TOTAL CARBON DIOXIDE 25.6 MMOL/L (24-32); TOTAL PROTEIN 6.9 G/DL (6.4-8.2); eGFR 32 ML/MIN
[2018-10-24 06:15] LABS: BASOPHILS % (AUTO) 0 % (0-1); EOSINOPHILS % (AUTO) 0.2 % (0-6); HEMATOCRIT 31.2 % (42.0-52.0); HEMOGLOBIN 9.6 g/dl (14.0-17.9); LYMPHOCYTES # (AUTO) 0.6 X10'3 (1.1-4.8); LYMPHOCYTES % (AUTO) 9.6 % (21-51); MEAN CORPUSCULAR HEMOGLOBIN 26.2 PG (27.0-31.0); MEAN CORPUSCULAR HGB CONC 30.8 % (33.0-36.5); MEAN CORPUSCULAR VOLUME 85.1 FL (78-98); MEAN PLATELET VOLUME 9.1 FL (7.4-10.4); MONOCYTES # (AUTO) 0.8 X10'3 (0-0.9); MONOCYTES % (AUTO) 12.7 % (2-12); NEUTROPHILS # (AUTO) 5.1 X10'3 (1.8-7.7); NEUTROPHILS % (AUTO) 77.5 % (42-75); PLATELET COUNT 234 X10'3 (140-440); RED BLOOD COUNT 3.66 X10'6 (4.70-6.10); RED CELL DISTRIBUTION WIDTH 20.5 % (11.5-14.5); WHITE BLOOD COUNT 6.6 X10'3 (4.5-11.0)
[2018-10-24 07:00] LABS: PLATELET ESTIMATE NORMAL
[2018-10-24 07:01] LABS: ANISOCYTOSIS 3+; HYPOCHROMASIA 2+; POLYCHROMASIA 1+; TARGET CELLS 1+
[2018-10-24] MEDS ORDERED: non-formulary drug (Diltiazem HCl (Diltiazem 24Hr Cd) 1 CAP) PO SCH (08:00)
[2018-10-24] MEDS ORDERED: furosemide 40mg tablet PO SCH (08:00)
[2018-10-24] MEDS ORDERED: methylPREDNISolone sod succ 125mg/2ml vial IV SCH (08:00)
[2018-10-24] MEDS: docusate sod 100mg capsule PO SCH ×3 (08:00→20:48)
[2018-10-24] MEDS: furosemide 40mg/4ml inj IV SCH (09:02)
[2018-10-24] MEDS: aspirin 81mg tablet.DR PO SCH (09:03)
[2018-10-24] MEDS: apixaban 2.5mg tablet PO SCH ×2 (09:03→20:48)
[2018-10-24] MEDS: metoprolol succinate 25mg (24-HOUR) SR. Tablet PO SCH (09:03)
[2018-10-24] MEDS: diltiazem CD 120mg capsule (once-daily) PO SCH (09:03)
[2018-10-24 11:00] VITALS: BP 130/103
[2018-10-24 18:10] VITALS: BP 116/93
[2018-10-24 22:00] VITALS: BP 145/86
[2018-10-25] MEDS: albuterol 2.5 MG/3 ML nebule NEB SCH ×6 (00:11→21:04)
[2018-10-25 02:00] VITALS: BP 103/83
[2018-10-25 06:00] VITALS: BP 103/82
[2018-10-25] MEDS: diltiazem CD 120mg capsule (once-daily) PO SCH (07:28)
[2018-10-25] MEDS: aspirin 81mg tablet.DR PO SCH (07:28)
[2018-10-25] MEDS: metoprolol succinate 25mg (24-HOUR) SR. Tablet PO SCH (07:28)
[2018-10-25] MEDS: apixaban 2.5mg tablet PO SCH ×2 (07:28→19:29)
[2018-10-25] MEDS: docusate sod 100mg capsule PO SCH ×3 (07:28→19:30)
[2018-10-25 10:16] LABS: BASOPHILS % (AUTO) 0 % (0-1); EOSINOPHILS % (AUTO) 0 % (0-6); HEMOGLOBIN 9.1 g/dl (14.0-17.9); LYMPHOCYTES # (AUTO) 0.4 X10'3 (1.1-4.8); LYMPHOCYTES % (AUTO) 6.1 % (21-51); MEAN CORPUSCULAR HEMOGLOBIN 25.9 PG (27.0-31.0); MEAN CORPUSCULAR HGB CONC 30.4 % (33.0-36.5); MEAN CORPUSCULAR VOLUME 85.2 FL (78-98); MONOCYTES # (AUTO) 0.8 X10'3 (0-0.9); MONOCYTES % (AUTO) 11.6 % (2-12); NEUTROPHILS # (AUTO) 5.7 X10'3 (1.8-7.7); NEUTROPHILS % (AUTO) 82.3 % (42-75); PLATELET COUNT 208 X10'3 (140-440); RED BLOOD COUNT 3.52 X10'6 (4.70-6.10); RED CELL DISTRIBUTION WIDTH 20.8 % (11.5-14.5); WHITE BLOOD COUNT 6.9 X10'3 (4.5-11.0)
[2018-10-25 10:29] LABS: ANISOCYTOSIS 2+; HYPOCHROMASIA 2+; PLATELET ESTIMATE NORMAL; POLYCHROMASIA 1+; TARGET CELLS 1+
[2018-10-25 10:38] LABS: ALANINE AMINOTRANSFERASE 123 U/L (12-78); ALBUMIN 2.4 G/DL (3.4-5.0); ALBUMIN/GLOBULIN RATIO 0.5 (1.1-1.5); ALKALINE PHOSPHATASE 448 IU/L (46-116); ANION GAP 12 (8-16); ASPARTATE AMINO TRANSFERASE 64 U/L (10-37); BILIRUBIN,TOTAL 2.3 MG/DL (0.1-1.0); BLOOD UREA NITROGEN 61 MG/DL (7-18); BUN/CREATININE RATIO 27.5 (5.4-32.0); CALCIUM 8.5 MG/DL (8.5-10.1); CHLORIDE 102 MMOL/L (99-107); CREATININE 2.22 MG/DL (0.60-1.10); GLUCOSE 117 MG/DL (70-104); POTASSIUM 4.5 MMOL/L (3.5-5.1); SODIUM 138 MMOL/L (135-145); TOTAL CARBON DIOXIDE 23.6 MMOL/L (24-32); TOTAL PROTEIN 6.8 G/DL (6.4-8.2); eGFR 30 ML/MIN
[2018-10-25 11:00] VITALS: BP 106/79
[2018-10-25] MEDS: furosemide 40mg/4ml inj IV SCH (11:48)
[2018-10-25 15:00] VITALS: BP 143/79
[2018-10-25 19:00] VITALS: BP 110/94
[2018-10-25 23:00] VITALS: BP 107/86
[2018-10-26] MEDS: albuterol 2.5 MG/3 ML nebule NEB SCH ×7 (00:38→23:36)
[2018-10-26 03:00] VITALS: BP 102/81
[2018-10-26 06:53] VITALS: BP 112/91
[2018-10-26] MEDS: docusate sod 100mg capsule PO SCH ×2 (08:00→19:55)
[2018-10-26] MEDS: furosemide 40mg/4ml inj IV SCH (08:37)
[2018-10-26] MEDS: diltiazem CD 120mg capsule (once-daily) PO SCH (08:37)
[2018-10-26] MEDS: metoprolol succinate 25mg (24-HOUR) SR. Tablet PO SCH (08:37)
[2018-10-26] MEDS: aspirin 81mg tablet.DR PO SCH (08:37)
[2018-10-26] MEDS: apixaban 2.5mg tablet PO SCH ×2 (08:37→19:54)
[2018-10-26 10:23] LABS: BASOPHILS % (AUTO) 0.2 % (0-1); EOSINOPHILS # (AUTO) 0.1 X10'3 (0-0.9); EOSINOPHILS % (AUTO) 1.8 % (0-6); HEMATOCRIT 32.8 % (42.0-52.0); HEMOGLOBIN 9.9 g/dl (14.0-17.9); LYMPHOCYTES # (AUTO) 0.5 X10'3 (1.1-4.8); LYMPHOCYTES % (AUTO) 7.8 % (21-51); MEAN CORPUSCULAR HEMOGLOBIN 25.8 PG (27.0-31.0); MEAN CORPUSCULAR HGB CONC 30.2 % (33.0-36.5); MEAN CORPUSCULAR VOLUME 85.3 FL (78-98); MONOCYTES # (AUTO) 0.8 X10'3 (0-0.9); MONOCYTES % (AUTO) 11.6 % (2-12); NEUTROPHILS # (AUTO) 5.3 X10'3 (1.8-7.7); NEUTROPHILS % (AUTO) 78.6 % (42-75); PLATELET COUNT 226 X10'3 (140-440); RED BLOOD COUNT 3.85 X10'6 (4.70-6.10); RED CELL DISTRIBUTION WIDTH 20.9 % (11.5-14.5); WHITE BLOOD COUNT 6.7 X10'3 (4.5-11.0)
[2018-10-26 10:39] LABS: ALANINE AMINOTRANSFERASE 134 U/L (12-78); ALBUMIN 2.5 G/DL (3.4-5.0); ALBUMIN/GLOBULIN RATIO 0.5 (1.1-1.5); ALKALINE PHOSPHATASE 443 IU/L (46-116); ANION GAP 11 (8-16); ASPARTATE AMINO TRANSFERASE 76 U/L (10-37); BILIRUBIN,TOTAL 2.2 MG/DL (0.1-1.0); BLOOD UREA NITROGEN 63 MG/DL (7-18); BUN/CREATININE RATIO 31.8 (5.4-32.0); CALCIUM 8.3 MG/DL (8.5-10.1); CHLORIDE 102 MMOL/L (99-107); CREATININE 1.98 MG/DL (0.60-1.10); GLUCOSE 117 MG/DL (70-104); POTASSIUM 3.7 MMOL/L (3.5-5.1); SODIUM 140 MMOL/L (135-145); TOTAL CARBON DIOXIDE 27.3 MMOL/L (24-32); TOTAL PROTEIN 7.1 G/DL (6.4-8.2); eGFR 34 ML/MIN
[2018-10-26 13:06] LABS: PLATELET ESTIMATE NORMAL; POLYCHROMASIA FEW
[2018-10-26 13:07] LABS: ANISOCYTOSIS 3+; HYPOCHROMASIA 1+; TARGET CELLS 1+
[2018-10-26 17:28] VITALS: BP 134/91
[2018-10-26 18:00] VITALS: BP 100/73
[2018-10-26 22:00] VITALS: BP 128/93
[2018-10-27 02:00] VITALS: BP 103/82
[2018-10-27] MEDS: albuterol 2.5 MG/3 ML nebule NEB SCH ×6 (03:26→23:01)
[2018-10-27 06:14] LABS: BASOPHILS % (AUTO) 0.1 % (0-1); EOSINOPHILS # (AUTO) 0.2 X10'3 (0-0.9); HEMATOCRIT 32.5 % (42.0-52.0); HEMOGLOBIN 9.7 g/dl (14.0-17.9); LYMPHOCYTES # (AUTO) 0.6 X10'3 (1.1-4.8); LYMPHOCYTES % (AUTO) 9.5 % (21-51); MEAN CORPUSCULAR HEMOGLOBIN 25.6 PG (27.0-31.0); MEAN CORPUSCULAR HGB CONC 29.8 % (33.0-36.5); MEAN CORPUSCULAR VOLUME 85.8 FL (78-98); MEAN PLATELET VOLUME 8.9 FL (7.4-10.4); MONOCYTES # (AUTO) 0.9 X10'3 (0-0.9); MONOCYTES % (AUTO) 12.8 % (2-12); NEUTROPHILS % (AUTO) 74.6 % (42-75); PLATELET COUNT 204 X10'3 (140-440); RED BLOOD COUNT 3.79 X10'6 (4.70-6.10); RED CELL DISTRIBUTION WIDTH 20.4 % (11.5-14.5); WHITE BLOOD COUNT 6.7 X10'3 (4.5-11.0)
[2018-10-27 06:32] LABS: ALANINE AMINOTRANSFERASE 153 U/L (12-78); ALBUMIN 2.4 G/DL (3.4-5.0); ALBUMIN/GLOBULIN RATIO 0.5 (1.1-1.5); ALKALINE PHOSPHATASE 434 IU/L (46-116); ANION GAP 10 (8-16); ASPARTATE AMINO TRANSFERASE 97 U/L (10-37); BLOOD UREA NITROGEN 64 MG/DL (7-18); CALCIUM 8.4 MG/DL (8.5-10.1); CHLORIDE 105 MMOL/L (99-107); CREATININE 1.88 MG/DL (0.60-1.10); GLUCOSE 84 MG/DL (70-104); POTASSIUM 4.2 MMOL/L (3.5-5.1); SODIUM 142 MMOL/L (135-145); TOTAL CARBON DIOXIDE 27.1 MMOL/L (24-32); TOTAL PROTEIN 6.8 G/DL (6.4-8.2); eGFR 36 ML/MIN
[2018-10-27 06:57] VITALS: BP 113/83
[2018-10-27 06:57] LABS: ANISOCYTOSIS 2+; PLATELET ESTIMATE NORMAL
[2018-10-27 07:00] LABS: HYPOCHROMASIA 1+
[2018-10-27 07:01] LABS: POLYCHROMASIA 1+
[2018-10-27] MEDS: diltiazem CD 120mg capsule (once-daily) PO SCH (08:00)
[2018-10-27] MEDS: metoprolol succinate 25mg (24-HOUR) SR. Tablet PO SCH (08:00)
[2018-10-27] MEDS: aspirin 81mg tablet.DR PO SCH (08:07)
[2018-10-27] MEDS: apixaban 2.5mg tablet PO SCH ×2 (08:07→19:07)
[2018-10-27] MEDS: furosemide 40mg/4ml inj IV SCH (08:07)
[2018-10-27] MEDS: docusate sod 100mg capsule PO SCH ×2 (08:07→19:15)
[2018-10-27 12:17] VITALS: BP 119/99
[2018-10-27 18:00] VITALS: BP 116/92
[2018-10-27 22:00] VITALS: BP 123/95
[2018-10-28 02:00] VITALS: BP 125/101
[2018-10-28] MEDS: albuterol 2.5 MG/3 ML nebule NEB SCH ×5 (03:03→19:28)
[2018-10-28 06:43] LABS: BASOPHILS % (AUTO) 0.3 % (0-1); EOSINOPHILS # (AUTO) 0.2 X10'3 (0-0.9); EOSINOPHILS % (AUTO) 3.9 % (0-6); HEMATOCRIT 29.5 % (42.0-52.0); HEMOGLOBIN 9.1 g/dl (14.0-17.9); LYMPHOCYTES # (AUTO) 0.7 X10'3 (1.1-4.8); LYMPHOCYTES % (AUTO) 11.4 % (21-51); MEAN CORPUSCULAR HEMOGLOBIN 25.9 PG (27.0-31.0); MEAN CORPUSCULAR HGB CONC 30.7 % (33.0-36.5); MEAN CORPUSCULAR VOLUME 84.4 FL (78-98); MEAN PLATELET VOLUME 9.3 FL (7.4-10.4); MONOCYTES # (AUTO) 0.7 X10'3 (0-0.9); MONOCYTES % (AUTO) 11.1 % (2-12); NEUTROPHILS # (AUTO) 4.4 X10'3 (1.8-7.7); NEUTROPHILS % (AUTO) 73.3 % (42-75); PLATELET COUNT 174 X10'3 (140-440); RED CELL DISTRIBUTION WIDTH 19.9 % (11.5-14.5)
[2018-10-28 07:00] VITALS: BP 128/103
[2018-10-28 07:31] LABS: ALANINE AMINOTRANSFERASE 146 U/L (12-78); ALBUMIN 2.4 G/DL (3.4-5.0); ALBUMIN/GLOBULIN RATIO 0.6 (1.1-1.5); ALKALINE PHOSPHATASE 401 IU/L (46-116); ANION GAP 7 (8-16); ASPARTATE AMINO TRANSFERASE 83 U/L (10-37); BILIRUBIN,TOTAL 2.2 MG/DL (0.1-1.0); BLOOD UREA NITROGEN 56 MG/DL (7-18); BUN/CREATININE RATIO 30.4 (5.4-32.0); CALCIUM 8.4 MG/DL (8.5-10.1); CHLORIDE 106 MMOL/L (99-107); CREATININE 1.84 MG/DL (0.60-1.10); GLUCOSE 79 MG/DL (70-104); POTASSIUM 3.9 MMOL/L (3.5-5.1); SODIUM 141 MMOL/L (135-145); TOTAL CARBON DIOXIDE 27.7 MMOL/L (24-32); TOTAL PROTEIN 6.4 G/DL (6.4-8.2); eGFR 37 ML/MIN
[2018-10-28] MEDS: diltiazem CD 120mg capsule (once-daily) PO SCH (08:14)
[2018-10-28] MEDS: aspirin 81mg tablet.DR PO SCH (08:14)
[2018-10-28] MEDS: metoprolol succinate 25mg (24-HOUR) SR. Tablet PO SCH (08:14)
[2018-10-28] MEDS: furosemide 40mg/4ml inj IV SCH ×2 (08:14→19:38)
[2018-10-28] MEDS: docusate sod 100mg capsule PO SCH ×2 (08:14→19:38)
[2018-10-28] MEDS: apixaban 2.5mg tablet PO SCH (08:14)
[2018-10-28 11:32] VITALS: BP 125/102
[2018-10-28 16:04] VITALS: BP 126/81
[2018-10-28 18:00] VITALS: BP 121/91
[2018-10-28 22:00] VITALS: BP 124/94
[2018-10-29] VITALS (7 sets, daily range): BP systolic 110–130; BP diastolic 84–101
[2018-10-29] MEDS: albuterol 2.5 MG/3 ML nebule NEB SCH ×7 (03:39→23:47)
[2018-10-29 05:29] LABS: HEMOGLOBIN 9.7 g/dl (14.0-17.9); MEAN CORPUSCULAR HEMOGLOBIN 25.7 PG (27.0-31.0); MEAN CORPUSCULAR HGB CONC 30.2 % (33.0-36.5); MEAN CORPUSCULAR VOLUME 85.2 FL (78-98); MEAN PLATELET VOLUME 9.2 FL (7.4-10.4); PLATELET COUNT 172 X10'3 (140-440); RED BLOOD COUNT 3.76 X10'6 (4.70-6.10); RED CELL DISTRIBUTION WIDTH 20.4 % (11.5-14.5); WHITE BLOOD COUNT 6.7 X10'3 (4.5-11.0)
[2018-10-29 05:36] LABS: ALBUMIN 2.6 G/DL (3.4-5.0); ANION GAP 10 (8-16); BLOOD UREA NITROGEN 56 MG/DL (7-18); BUN/CREATININE RATIO 31.5 (5.4-32.0); CALCIUM 8.7 MG/DL (8.5-10.1); CHLORIDE 105 MMOL/L (99-107); CREATININE 1.78 MG/DL (0.60-1.10); GLUCOSE 79 MG/DL (70-104); MAGNESIUM 2.1 MG/DL (1.5-2.4); POTASSIUM 4.2 MMOL/L (3.5-5.1); SODIUM 142 MMOL/L (135-145); TOTAL CARBON DIOXIDE 27.2 MMOL/L (24-32); eGFR 38 ML/MIN
[2018-10-29 06:55] LABS: ANISOCYTOSIS 2+; HYPOCHROMASIA 1+; PLATELET ESTIMATE NORMAL; TARGET CELLS FEW
[2018-10-29] MEDS: furosemide 40mg/4ml inj IV SCH ×3 (08:00→15:11)
[2018-10-29] MEDS: docusate sod 100mg capsule PO SCH ×2 (09:08→19:55)
[2018-10-29] MEDS: diltiazem CD 120mg capsule (once-daily) PO SCH (09:08)
[2018-10-29] MEDS: metoprolol succinate 25mg (24-HOUR) SR. Tablet PO SCH (09:08)
[2018-10-29] MEDS ORDERED: LIDOcaine 1%/PF 5ML 10 MG/ML VIAL ONE (09:15)
[2018-10-29 13:16] LABS: GLUCOSE,BODY FLUID 120 MG/DL; TOTAL PROTEIN,BODY FLUID 2.8 G/DL
[2018-10-29 13:19] LABS: LDH,BODY FLUID 90 U/L
[2018-10-29 13:24] LABS: BFAPPEAR CLOUDY; BFCOLOR OTHER; BFVOLUME 10 ML; LYMPHOCYTES,BODY FLUID 88 %; MONOCYTES,BODY FLUID 8 %; NEUTROPHILS,BODY FLUID 4 %
[2018-10-29 13:25] LABS: BF MESOTHELIAL CELLS FEW; BF RBC COUNT 8025 /CU MM
[2018-10-29 14:14] LABS: BF WBC COUNT 105 /CU MM (0-1000)
[2018-10-30 03:00] VITALS: BP 110/80
[2018-10-30] MEDS: albuterol 2.5 MG/3 ML nebule NEB SCH ×3 (03:44→12:08)
[2018-10-30 05:46] LABS: HEMATOCRIT 30.2 % (42.0-52.0); HEMOGLOBIN 9.3 g/dl (14.0-17.9); MEAN CORPUSCULAR HEMOGLOBIN 25.8 PG (27.0-31.0); MEAN CORPUSCULAR HGB CONC 30.7 % (33.0-36.5); MEAN PLATELET VOLUME 9.1 FL (7.4-10.4); PLATELET COUNT 155 X10'3 (140-440); RED CELL DISTRIBUTION WIDTH 20.3 % (11.5-14.5); WHITE BLOOD COUNT 6.3 X10'3 (4.5-11.0)
[2018-10-30 06:03] LABS: ALBUMIN 2.4 G/DL (3.4-5.0); ANION GAP 10 (8-16); BLOOD UREA NITROGEN 51 MG/DL (7-18); BUN/CREATININE RATIO 32.3 (5.4-32.0); CALCIUM 8.7 MG/DL (8.5-10.1); CHLORIDE 103 MMOL/L (99-107); CREATININE 1.58 MG/DL (0.60-1.10); GLUCOSE 81 MG/DL (70-104); SODIUM 141 MMOL/L (135-145); TOTAL CARBON DIOXIDE 27.6 MMOL/L (24-32); eGFR 44 ML/MIN
[2018-10-30 06:53] LABS: ANISOCYTOSIS 2+; PLATELET ESTIMATE NORMAL
[2018-10-30 06:54] LABS: HYPOCHROMASIA 1+; POLYCHROMASIA FEW; TARGET CELLS FEW
[2018-10-30] MEDS: furosemide 40mg/4ml inj IV SCH (07:28)
[2018-10-30] MEDS: metoprolol succinate 25mg (24-HOUR) SR. Tablet PO SCH (07:28)
[2018-10-30] MEDS: diltiazem CD 120mg capsule (once-daily) PO SCH (07:28)
[2018-10-30] MEDS: docusate sod 100mg capsule PO SCH (07:28)
[2018-10-30 08:15] LABS: HBSAG SCREEN Negative (Negative); HEP A AB, IGM Negative (Negative); HEP B CORE AB, IGM Negative (Negative); HEPATITIS C ANTIBODY 0.2 s/co ratio (0.0-0.9)
[2018-10-30] MEDS: apixaban 2.5mg tablet PO SCH (08:22)
[2018-10-30] MEDS: aspirin 81mg tablet.DR PO SCH (08:22)
[2018-10-30 10:59] VITALS: BP 110/88
== END 2018-10-30 14:28 | DRG 291 ==
LOC: ER 15:39 → ED HOLD 17:28 → PCU 3S 19:18
PROVIDERS: ADMIT Internal Medicine; ATTEND Family Medicine
PROC: 0W9G3ZZ Drainage of Peritoneal Cavity, Percutaneous Approach (ICD-10-PCS; principal; 2018-10-29)
DX: I13.0 Hypertensive heart and chronic kidney disease with heart failure and stage 1 through stage 4 chronic kidney disease, or unspecified chronic kidney disease (principal); I50.23 Acute on chronic systolic (congestive) heart failure; E43 Unspecified severe protein-calorie malnutrition; N17.9 Acute kidney failure, unspecified; I50.22 Chronic systolic (congestive) heart failure; R18.8 Other ascites; K76.1 Chronic passive congestion of liver; I42.9 Cardiomyopathy, unspecified; N18.3 Chronic kidney disease, stage 3 (moderate); D63.8 Anemia in other chronic diseases classified elsewhere; E87.5 Hyperkalemia; F31.9 Bipolar disorder, unspecified; I48.91 Unspecified atrial fibrillation; J44.9 Chronic obstructive pulmonary disease, unspecified; I73.9 Peripheral vascular disease, unspecified; I25.10 Atherosclerotic heart disease of native coronary artery without angina pectoris; Z66 Do not resuscitate; R74.8 Abnormal levels of other serum enzymes; Z79.82 Long term (current) use of aspirin; Z79.01 Long term (current) use of anticoagulants; Z79.899 Other long term (current) drug therapy; Z86.718 Personal history of other venous thrombosis and embolism; Z68.21 Body mass index [BMI] 21.0-21.9, adult
CPT/HCPCS: 36415; 36600; 49083; 71045; 80048; 80053; 80074; 82803; 82945; 83615; 83735; 83880; 84157; 84484; 85018; 85025; 85027; 85610; 85730; 87070; 89051; 93005; 93306; 94640; 94760; 96374; 96375; 97116; 97161; 97530; 99285; G0378; J0610; J1815; J1940; J2001; J2930; J3490; J7030

== ENCOUNTER 2018-11-10 09:24 | Emergency (ER) | payer OTHER ==
[~2018-11-10] VITALS: Ht 182.9 cm; Wt 48.0 kg
[~2018-11-10 09:24] MED LIST changes: -DOCU100C41 PO; -POTA20TA19 PO
[2018-11-10 09:32] VITALS: BP 113/96
--- NOTE | 2018-11-10 09:55 | NUR ---
Ultrasound in room now. Pt. transferred here from [facility] for paracentesis.
[2018-11-10 10:19] LABS: BASOPHILS # (AUTO) 0.2 X10'3 (0-0.2); EOSINOPHILS # (AUTO) 0.1 X10'3 (0-0.9); EOSINOPHILS % (AUTO) 1.8 % (0-6); HEMATOCRIT 31.6 % (42.0-52.0); HEMOGLOBIN 9.5 g/dl (14.0-17.9); LYMPHOCYTES # (AUTO) 0.6 X10'3 (1.1-4.8); LYMPHOCYTES % (AUTO) 11.6 % (21-51); MEAN CORPUSCULAR HEMOGLOBIN 25.3 PG (27.0-31.0); MEAN CORPUSCULAR VOLUME 84.5 FL (78-98); MEAN PLATELET VOLUME 8.8 FL (7.4-10.4); MONOCYTES # (AUTO) 0.5 X10'3 (0-0.9); MONOCYTES % (AUTO) 10.6 % (2-12); NEUTROPHILS # (AUTO) 3.6 X10'3 (1.8-7.7); NEUTROPHILS % (AUTO) 72.8 % (42-75); PLATELET COUNT 163 X10'3 (140-440); RED BLOOD COUNT 3.74 X10'6 (4.70-6.10); RED CELL DISTRIBUTION WIDTH 18.9 % (11.5-14.5)
[2018-11-10 10:30] LABS: INR 1.3 INR; PROTHROMBIN TIME 12.9 SECONDS (9.0-12.0)
[2018-11-10 10:44] LABS: BASOPHILS % (AUTO) 1.2 % (0-1)
[2018-11-10 10:46] LABS: ALANINE AMINOTRANSFERASE 77 U/L (12-78); ALBUMIN 2.4 G/DL (3.4-5.0); ALBUMIN/GLOBULIN RATIO 0.5 (1.1-1.5); ALKALINE PHOSPHATASE 363 IU/L (46-116); ANION GAP 5 (8-16); ASPARTATE AMINO TRANSFERASE 54 U/L (10-37); BILIRUBIN,TOTAL 1.6 MG/DL (0.1-1.0); BLOOD UREA NITROGEN 47 MG/DL (7-18); BUN/CREATININE RATIO 27.2 (5.4-32.0); CALCIUM 8.1 MG/DL (8.5-10.1); CHLORIDE 107 MMOL/L (99-107); CREATININE 1.73 MG/DL (0.60-1.10); GLUCOSE 95 MG/DL (70-104); SODIUM 146 MMOL/L (135-145); TOTAL CARBON DIOXIDE 34.4 MMOL/L (24-32); TOTAL PROTEIN 7.2 G/DL (6.4-8.2); eGFR 39 ML/MIN
[2018-11-10 10:49] LABS: ANISOCYTOSIS 2+; HYPOCHROMASIA 1+; LARGE PLATELETS FEW; PLATELET ESTIMATE NORMAL; TOTAL CELLS COUNTED 100
--- NOTE | 2018-11-10 11:11 | NUR ---
Mariely Abraham setting up for carmelo.
== END 2018-11-10 15:01 ==
LOC: ER 09:24
DX: K74.69 Other cirrhosis of liver (principal); R18.8 Other ascites; R14.0 Abdominal distension (gaseous); I48.91 Unspecified atrial fibrillation; I11.0 Hypertensive heart disease with heart failure; I50.9 Heart failure, unspecified; J44.9 Chronic obstructive pulmonary disease, unspecified; Z86.718 Personal history of other venous thrombosis and embolism; Z79.82 Long term (current) use of aspirin; Z79.899 Other long term (current) drug therapy
CPT/HCPCS: 36415; 49083; 71045; 76705; 80053; 82140; 85025; 85610; 99285

== ENCOUNTER 2019-01-07 12:10 | Inpatient (IN) | payer OTHER | END 2019-01-08 16:25 | LOC: ORTHO 4S 23:55 → ER 12:10 → ED HOLD 17:16 | DX: I13.0 Hypertensive heart and chronic kidney disease with heart failure and stage 1 through stage 4 chronic kidney disease, or unspecified chronic kidney disease (principal); I50.23 Acute on chronic systolic (congestive) heart failure; S20.219A Contusion of unspecified front wall of thorax, initial encounter; S30.1XXA Contusion of abdominal wall, initial encounter; D64.9 Anemia, unspecified; N18.3 Chronic kidney disease, stage 3 (moderate) ==

== ENCOUNTER 2019-09-26 21:20 | Inpatient (IN) | payer MEDICARE, OTHER ==
[~2019-09-26] VITALS: Ht 182.9 cm; Wt 62.0 kg
[~2019-09-26 21:20] MED LIST changes: -APIX2.5T PO; -ASPI-1071 PO; +BISA10SU11 RC; +CEPH-572 PO; +DIGO250T77 PO; -DILT120C62 PO; +DOCU100C41 PO; +IPRA3AMP31 IH; +IPRA4AER IH; +RIVA15TA PO; +SPIR25TA PO
[2019-09-26] MEDS ORDERED: nitroGLYCERIN 0.4mg/hour patch TD ONE (22:15)
[2019-09-26 22:16] LABS: BASOPHILS % (AUTO) 0.5 % (0-1); EOSINOPHILS # (AUTO) 0.2 X10'3 (0-0.9); EOSINOPHILS % (AUTO) 2.4 % (0-6); HEMATOCRIT 34.8 % (42.0-52.0); HEMOGLOBIN 11.2 g/dl (14.0-17.9); LYMPHOCYTES # (AUTO) 0.6 X10'3 (1.1-4.8); LYMPHOCYTES % (AUTO) 9.6 % (21-51); MEAN CORPUSCULAR HEMOGLOBIN 26.6 PG (27.0-31.0); MEAN CORPUSCULAR HGB CONC 32.3 g/dL (33.0-36.5); MEAN CORPUSCULAR VOLUME 82.4 FL (78-98); MEAN PLATELET VOLUME 8.3 FL (7.4-10.4); MONOCYTES # (AUTO) 0.8 X10'3 (0-0.9); MONOCYTES % (AUTO) 13.1 % (2-12); NEUTROPHILS # (AUTO) 4.7 X10'3 (1.8-7.7); NEUTROPHILS % (AUTO) 74.4 % (42-75); PLATELET COUNT 149 X10'3 (140-440); RED BLOOD COUNT 4.23 X10'6 (4.70-6.10); RED CELL DISTRIBUTION WIDTH 18.6 % (11.5-14.5); WHITE BLOOD COUNT 6.3 X10'3 (4.5-11.0)
[2019-09-26] MEDS ORDERED: CefTRIAXone 2gm/D5W 50ml 50 ML IV ONE (22:25)
[2019-09-26 22:28] LABS: ALANINE AMINOTRANSFERASE 27 U/L (12-78); ALBUMIN 3.3 G/DL (3.4-5.0); ALBUMIN/GLOBULIN RATIO 0.8 (1.1-1.5); ALKALINE PHOSPHATASE 199 IU/L (46-116); ANION GAP 10 (8-16); ASPARTATE AMINO TRANSFERASE 24 U/L (10-37); BILIRUBIN,TOTAL 1.2 MG/DL (0.1-1.0); BLOOD UREA NITROGEN 28 MG/DL (7-18); BUN/CREATININE RATIO 13.4 (5.4-32.0); CALCIUM 8.6 MG/DL (8.5-10.1); CHLORIDE 106 MMOL/L (99-107); CREATININE 2.09 MG/DL (0.60-1.10); GLUCOSE 109 MG/DL (70-104); POTASSIUM 3.8 MMOL/L (3.5-5.1); SODIUM 140 MMOL/L (135-145); TOTAL CARBON DIOXIDE 24.4 MMOL/L (24-32); TOTAL PROTEIN 7.5 G/DL (6.4-8.2); eGFR 32 ML/MIN
[2019-09-26 22:35] LABS: MAGNESIUM 1.8 MG/DL (1.5-2.4)
[2019-09-26] MEDS ORDERED: magnesium hydroxide 30ml (MOM) UD suspension PO PRN (22:45)
[2019-09-26] MEDS ORDERED: potassium Cl 20 mEq SR tablet PO PRN ×2 (22:45)
[2019-09-26] MEDS ORDERED: magnesium 4gm in 100ml NS 100 ML IV PRN (22:45)
[2019-09-26] MEDS ORDERED: aspirin 81mg tablet.DR PO ONE (22:45)
[2019-09-26] MEDS ORDERED: magnesium Cl slow-release 64mg tablet PO PRN (22:45)
[2019-09-26] MEDS ORDERED: ondansetron/PF 4mg/2ml inj IV PRN (22:45)
[2019-09-26] MEDS ORDERED: mag hydrox/Alum hydrox/simeth 30ml oral suspension PO PRN (22:45)
[2019-09-26] MEDS ORDERED: potassium CL 10mEq/100ml bag 100 ML IV PRN ×2 (22:45)
[2019-09-26] MEDS ORDERED: acetaminophen 325mg tablet PO PRN ×2 (22:45)
[2019-09-26] MEDS ORDERED: magnesium 2GM in 50ml NS 50 ML IV PRN (22:45)
--- NOTE | 2019-09-26 23:50 | NUR ---
Patient in ED room 4, received report from Ella CHRISTIAN. Had the opportunity to ask questions, assumed care of patient.
[2019-09-26 23:55] VITALS: BP 168/105
[2019-09-27] VITALS (7 sets, daily range): BP systolic 125–174; BP diastolic 91–136
[2019-09-27 01:39] LABS: ALBUMIN 3.1 G/DL (3.4-5.0); ANION GAP 7 (8-16); BLOOD UREA NITROGEN 27 MG/DL (7-18); BUN/CREATININE RATIO 13.1 (5.4-32.0); CALCIUM 8.5 MG/DL (8.5-10.1); CHLORIDE 106 MMOL/L (99-107); CREATININE 2.06 MG/DL (0.60-1.10); GLUCOSE 89 MG/DL (70-104); MAGNESIUM 1.7 MG/DL (1.5-2.4); POTASSIUM 3.7 MMOL/L (3.5-5.1); SODIUM 140 MMOL/L (135-145); TOTAL CARBON DIOXIDE 27.3 MMOL/L (24-32); eGFR 32 ML/MIN
[2019-09-27 05:28] LABS: BASOPHILS % (AUTO) 0.6 % (0-1); EOSINOPHILS # (AUTO) 0.2 X10'3 (0-0.9); EOSINOPHILS % (AUTO) 3.6 % (0-6); HEMATOCRIT 33.9 % (42.0-52.0); HEMOGLOBIN 10.8 g/dl (14.0-17.9); LYMPHOCYTES # (AUTO) 0.5 X10'3 (1.1-4.8); LYMPHOCYTES % (AUTO) 9.1 % (21-51); MEAN CORPUSCULAR HEMOGLOBIN 26.5 PG (27.0-31.0); MEAN CORPUSCULAR HGB CONC 31.9 g/dL (33.0-36.5); MEAN CORPUSCULAR VOLUME 83.2 FL (78-98); MEAN PLATELET VOLUME 8.3 FL (7.4-10.4); MONOCYTES # (AUTO) 0.7 X10'3 (0-0.9); MONOCYTES % (AUTO) 14.2 % (2-12); NEUTROPHILS # (AUTO) 3.7 X10'3 (1.8-7.7); NEUTROPHILS % (AUTO) 72.5 % (42-75); PLATELET COUNT 140 X10'3 (140-440); RED BLOOD COUNT 4.07 X10'6 (4.70-6.10); RED CELL DISTRIBUTION WIDTH 18.6 % (11.5-14.5); WHITE BLOOD COUNT 5.1 X10'3 (4.5-11.0)
--- NOTE | 2019-09-27 06:15 | NUR ---
Gave report to Christi CHRISTIAN.
--- NOTE | 2019-09-27 06:30 | NUR ---
Patient in room ORTHO 4021. I have received report from ANAHI Cardoso and had the opportunity to ask questions and assume patient care.
[2019-09-27 07:17] LABS: ANISOCYTOSIS 2+; MICROCYTOSIS 1+; PLATELET ESTIMATE DECREASED; POLYCHROMASIA FEW
[2019-09-27] MEDS: furosemide 40mg/4ml inj IV SCH ×2 (07:54→20:43)
[2019-09-27] MEDS: K and/or MAG REPLACEMENT MC SCH (08:00)
[2019-09-27] MEDS ORDERED: ipratropium/albuterol 3ml nebule NEB PRN (08:25)
--- NOTE | 2019-09-27 08:30 | NUR ---
Went to pts bedside. Pt extremely SOB. P.O. 94% on room air. Pt coughing up large amount of white sputum. Pt states he does not wear Oxygen at home but does use nebulizer treatments each day, about every 4-6 hours. Notified and received order for RT Treat & Eval. RT paged and came right up. Received nebulizer treatment and is now using flutter multiple times at bedside. Pt doing much better. Eating breakfast and feeling much better. No longer SOB at this time. Will continue to monitor.
[2019-09-27] MEDS ORDERED: FLU VACC QS2019-20 36MOS UP/PF 60 MCG/0.5 ML SYRINGE IMVAC ONE (10:00)
[2019-09-27] MEDS: metoprolol succinate 25mg (24-HOUR) SR. Tablet PO SCH (17:14)
--- NOTE | 2019-09-27 18:30 | NUR ---
Patient in room ORTHO 4021. I have received report from BROA and had the opportunity to ask questions and assume patient care.
--- NOTE | 2019-09-27 18:41 | NUR ---
Problems reprioritized. Patient report given, questions answered & plan of care reviewed with ANAHI Jeong.
[2019-09-27] MEDS: hydrALAZINE 20mg/ml inj. IV PRN (19:47)
[2019-09-27] MEDS: enoxaparin 60mg/0.6ml syringe SUBCUT SCH (20:43)
[2019-09-27] MEDS ORDERED: warfarin 5mg tablet PO ONE (21:00)
[2019-09-27] MEDS: ipratropium/albuterol 3ml nebule NEB PRN (21:09)
--- NOTE | 2019-09-28 05:03 | NUR ---
TELE CALLED: PT HAD 4 BEAT RUN OF VTACH. BP 153/112, HR 72. PT RESTING IN THE BED, DENIES CHEST PAIN OR SOB. WILL CONTINUE TO MONITOR.
[2019-09-28 06:00] VITALS: BP 153/112
[2019-09-28 06:20] LABS: BASOPHILS % (AUTO) 0.6 % (0-1); EOSINOPHILS # (AUTO) 0.1 X10'3 (0-0.9); EOSINOPHILS % (AUTO) 1.9 % (0-6); HEMATOCRIT 33.6 % (42.0-52.0); HEMOGLOBIN 10.9 g/dl (14.0-17.9); LYMPHOCYTES # (AUTO) 0.4 X10'3 (1.1-4.8); LYMPHOCYTES % (AUTO) 8.4 % (21-51); MEAN CORPUSCULAR HEMOGLOBIN 26.8 PG (27.0-31.0); MEAN CORPUSCULAR HGB CONC 32.4 g/dL (33.0-36.5); MEAN CORPUSCULAR VOLUME 82.6 FL (78-98); MEAN PLATELET VOLUME 8.4 FL (7.4-10.4); MONOCYTES # (AUTO) 0.8 X10'3 (0-0.9); MONOCYTES % (AUTO) 14.6 % (2-12); NEUTROPHILS # (AUTO) 3.9 X10'3 (1.8-7.7); NEUTROPHILS % (AUTO) 74.5 % (42-75); PLATELET COUNT 145 X10'3 (140-440); RED BLOOD COUNT 4.07 X10'6 (4.70-6.10); RED CELL DISTRIBUTION WIDTH 18.6 % (11.5-14.5); WHITE BLOOD COUNT 5.3 X10'3 (4.5-11.0)
[2019-09-28 06:21] LABS: ALBUMIN 3.1 G/DL (3.4-5.0); ANION GAP 8 (8-16); BLOOD UREA NITROGEN 30 MG/DL (7-18); BUN/CREATININE RATIO 13.8 (5.4-32.0); CALCIUM 8.7 MG/DL (8.5-10.1); CHLORIDE 103 MMOL/L (99-107); CREATININE 2.18 MG/DL (0.60-1.10); GLUCOSE 89 MG/DL (70-104); MAGNESIUM 1.7 MG/DL (1.5-2.4); POTASSIUM 3.8 MMOL/L (3.5-5.1); SODIUM 138 MMOL/L (135-145); TOTAL CARBON DIOXIDE 26.6 MMOL/L (24-32); eGFR 30 ML/MIN
--- NOTE | 2019-09-28 06:23 | NUR ---
Problems reprioritized. Patient report given, questions answered & plan of care reviewed with BORA.
--- NOTE | 2019-09-28 06:30 | NUR ---
Patient in room ORTHO 4023. I have received report from ANAHI Shrestha and had the opportunity to ask questions and assume patient care.
[2019-09-28 07:02] LABS: ANISOCYTOSIS 2+; PLATELET ESTIMATE NORMAL
[2019-09-28 07:03] LABS: HYPOCHROMASIA 2+
[2019-09-28 07:15] VITALS: BP 139/108
[2019-09-28] MEDS: furosemide 40mg/4ml inj IV SCH (07:52)
[2019-09-28] MEDS: spironolactone 25 MG tablet PO SCH (07:55)
[2019-09-28] MEDS: metoprolol succinate 25mg (24-HOUR) SR. Tablet PO SCH (07:58)
[2019-09-28] MEDS: enoxaparin 60mg/0.6ml syringe SUBCUT SCH ×2 (07:59→20:45)
[2019-09-28] MEDS: K and/or MAG REPLACEMENT MC SCH (08:00)
[2019-09-28] MEDS: ipratropium/albuterol 3ml nebule NEB PRN ×2 (09:04→19:42)
[2019-09-28 10:00] VITALS: BP 163/120
[2019-09-28 10:25] VITALS: BP 163/120
[2019-09-28] MEDS: hydrALAZINE 20mg/ml inj. IV PRN ×2 (10:42→17:56)
[2019-09-28] MEDS: digoxin 250mcg (0.25mg) tablet PO SCH (10:42)
--- NOTE | 2019-09-28 12:08 | NUR ---
Student Medication Administration:For this medication-pass time frame [id number], all medications were reviewed,administered and documented per hospital policy by Kee Hall. Student documentation:I have reviewed and agree with all interventions, assessments performed and documented by Kee Hall.
--- NOTE | 2019-09-28 12:16 | NUR ---
Patient report given, questions answered & plan of care reviewed with
[2019-09-28 18:00] VITALS: BP 164/112
--- NOTE | 2019-09-28 18:33 | NUR ---
Problems reprioritized. Patient report given, questions answered & plan of care reviewed with ANAHI Ahn.
[2019-09-28] MEDS ORDERED: warfarin 5mg tablet PO ONE (21:00)
[2019-09-29 02:00] VITALS: BP 127/94
[2019-09-29 05:56] LABS: ALBUMIN 3.1 G/DL (3.4-5.0); ANION GAP 9 (8-16); BLOOD UREA NITROGEN 38 MG/DL (7-18); BUN/CREATININE RATIO 17.3 (5.4-32.0); CALCIUM 8.7 MG/DL (8.5-10.1); CHLORIDE 103 MMOL/L (99-107); GLUCOSE 81 MG/DL (70-104); MAGNESIUM 1.8 MG/DL (1.5-2.4); POTASSIUM 3.9 MMOL/L (3.5-5.1); SODIUM 139 MMOL/L (135-145); TOTAL CARBON DIOXIDE 27.3 MMOL/L (24-32); eGFR 30 ML/MIN
[2019-09-29 06:00] VITALS: BP 136/96
[2019-09-29 06:02] LABS: BASOPHILS % (AUTO) 0.3 % (0-1); EOSINOPHILS # (AUTO) 0.1 X10'3 (0-0.9); EOSINOPHILS % (AUTO) 2.4 % (0-6); HEMATOCRIT 33.6 % (42.0-52.0); HEMOGLOBIN 10.8 g/dl (14.0-17.9); LYMPHOCYTES # (AUTO) 0.4 X10'3 (1.1-4.8); LYMPHOCYTES % (AUTO) 7.8 % (21-51); MEAN CORPUSCULAR HEMOGLOBIN 26.6 PG (27.0-31.0); MEAN CORPUSCULAR HGB CONC 32.2 g/dL (33.0-36.5); MEAN CORPUSCULAR VOLUME 82.5 FL (78-98); MEAN PLATELET VOLUME 8.4 FL (7.4-10.4); MONOCYTES # (AUTO) 0.9 X10'3 (0-0.9); MONOCYTES % (AUTO) 16.6 % (2-12); NEUTROPHILS # (AUTO) 3.9 X10'3 (1.8-7.7); NEUTROPHILS % (AUTO) 72.9 % (42-75); PLATELET COUNT 146 X10'3 (140-440); RED BLOOD COUNT 4.07 X10'6 (4.70-6.10); RED CELL DISTRIBUTION WIDTH 18.7 % (11.5-14.5); WHITE BLOOD COUNT 5.4 X10'3 (4.5-11.0)
--- NOTE | 2019-09-29 06:18 | NUR ---
REPORT GIVEN TO ANAHI SAHNI.
[2019-09-29] MEDS: K and/or MAG REPLACEMENT MC SCH (07:23)
[2019-09-29] MEDS: ipratropium/albuterol 3ml nebule NEB PRN ×2 (08:44→21:39)
[2019-09-29] MEDS: furosemide 40mg/4ml inj IV SCH (09:12)
[2019-09-29] MEDS: spironolactone 25 MG tablet PO SCH (09:12)
[2019-09-29] MEDS: metoprolol succinate 25mg (24-HOUR) SR. Tablet PO SCH (09:14)
[2019-09-29] MEDS: enoxaparin 60mg/0.6ml syringe SUBCUT SCH ×2 (09:14→20:38)
[2019-09-29] MEDS: digoxin 250mcg (0.25mg) tablet PO SCH (09:14)
[2019-09-29 10:00] VITALS: BP 143/98
--- NOTE | 2019-09-29 15:55 | NUR ---
Spoke with pts friend, Aylin, who is a Retired Nurse & Friend of patient, and she has agreed to provide Lovenox infections when pt is discharged to home on 09/30/19. Phone number is [phone]. Spoke with Jono Dima (Friend), who has agreed to metal pickling equipment operator the patient and transport him to home upon discharge on 09/30. Please call him/ at [phone] when discharge is in the computer. They live approximately one hour away. Leatha, Verification Lead & Dr. Cortez informed of phone calls made to friends, on pts behalf, to assist at the time of discharge from [facility].
[2019-09-29] MEDS: hydrALAZINE 20mg/ml inj. IV PRN (17:39)
[2019-09-29 18:00] VITALS: BP 141/102
--- NOTE | 2019-09-29 18:51 | NUR ---
Patient in room ORTHO 4023. I have received report from ANAHI Barraza and had the opportunity to ask questions and assume patient care.
[2019-09-29] MEDS ORDERED: warfarin 7.5mg tablet PO ONE (21:00)
[2019-09-29 22:00] VITALS: BP 145/90
[2019-09-29 23:29] VITALS: BP 141/102
[2019-09-30] VITALS (9 sets, daily range): BP systolic 130–160; BP diastolic 85–114
--- NOTE | 2019-09-30 06:04 | NUR ---
Problems reprioritized. Patient report given, questions answered & plan of care reviewed with ANAHI Jacques.
[2019-09-30 06:17] LABS: BASOPHILS % (AUTO) 0.4 % (0-1); EOSINOPHILS # (AUTO) 0.2 X10'3 (0-0.9); HEMATOCRIT 33.7 % (42.0-52.0); HEMOGLOBIN 10.9 g/dl (14.0-17.9); LYMPHOCYTES # (AUTO) 0.4 X10'3 (1.1-4.8); LYMPHOCYTES % (AUTO) 7.5 % (21-51); MEAN CORPUSCULAR HEMOGLOBIN 26.7 PG (27.0-31.0); MEAN CORPUSCULAR HGB CONC 32.4 g/dL (33.0-36.5); MEAN CORPUSCULAR VOLUME 82.6 FL (78-98); MEAN PLATELET VOLUME 8.6 FL (7.4-10.4); MONOCYTES # (AUTO) 0.9 X10'3 (0-0.9); MONOCYTES % (AUTO) 18.5 % (2-12); NEUTROPHILS # (AUTO) 3.4 X10'3 (1.8-7.7); NEUTROPHILS % (AUTO) 69.6 % (42-75); PLATELET COUNT 152 X10'3 (140-440); RED BLOOD COUNT 4.08 X10'6 (4.70-6.10); RED CELL DISTRIBUTION WIDTH 18.5 % (11.5-14.5); WHITE BLOOD COUNT 4.9 X10'3 (4.5-11.0)
[2019-09-30 06:23] LABS: ALBUMIN 3.1 G/DL (3.4-5.0); ANION GAP 10 (8-16); BLOOD UREA NITROGEN 40 MG/DL (7-18); BUN/CREATININE RATIO 21.5 (5.4-32.0); CALCIUM 8.9 MG/DL (8.5-10.1); CHLORIDE 104 MMOL/L (99-107); CREATININE 1.86 MG/DL (0.60-1.10); GLUCOSE 80 MG/DL (70-104); POTASSIUM 4.2 MMOL/L (3.5-5.1); SODIUM 140 MMOL/L (135-145); TOTAL CARBON DIOXIDE 26.3 MMOL/L (24-32); eGFR 36 ML/MIN
--- NOTE | 2019-09-30 06:24 | NUR ---
RECEIVED REPORT FROM ANAHI FORTE
[2019-09-30] MEDS: K and/or MAG REPLACEMENT MC SCH (08:00)
[2019-09-30] MEDS: spironolactone 25 MG tablet PO SCH (08:29)
[2019-09-30] MEDS: furosemide 40mg/4ml inj IV SCH (08:29)
[2019-09-30] MEDS: digoxin 250mcg (0.25mg) tablet PO SCH (08:30)
[2019-09-30] MEDS: metoprolol succinate 25mg (24-HOUR) SR. Tablet PO SCH (08:31)
[2019-09-30] MEDS: enoxaparin 60mg/0.6ml syringe SUBCUT SCH ×2 (08:32→21:22)
[2019-09-30] MEDS: ipratropium/albuterol 3ml nebule NEB PRN ×2 (08:48→19:43)
--- NOTE | 2019-09-30 09:10 | NUR ---
change dressing on right lower extremity per woc orders and took pic, pic in chart and dressing cdi, continue to monitor
[2019-09-30] MEDS: HYDROcodone/acetaminophen 5mg/325mg tablet PO PRN (09:33)
--- NOTE | 2019-09-30 14:07 | NUR ---
Initial: Pt admit w/ CHF exacerbation EF 35-40%. Hx CKD IV, WA, bipolar. May require MVR or cardiac cath per MD note. PO 100% avg heart healthy meals meeting needs. LBM 09/29. No nutrition concerns at this time. Will continue to monitor. Rec: 1. continue heart healthy diet 2. wt per rx Addendum: 09/30/19 at [address] Amended: Links added.
[2019-09-30] MEDS: hydrALAZINE 20mg/ml inj. IV PRN (17:18)
--- NOTE | 2019-09-30 18:18 | NUR ---
GAVE REPORT TO ANAHI CLARKE
--- NOTE | 2019-09-30 18:30 | NUR ---
Patient in room ORTHO 4023. I have received report from Georgie CHRISTIAN and had the opportunity to ask questions and assume patient care.
--- NOTE | 2019-09-30 20:00 | NUR ---
Patient had a second venous ulcer on the right khan above the one that has a dressing on it and skin that was previously intact has come off at this time. Patient said that it just started peeling off when he touched it. Scant amount of serosanguineous drainage. Picture taken and placed in chart and message left for the wound team which is already following the patient. Optifoam placed over site.
[2019-09-30] MEDS ORDERED: warfarin 10mg tablet PO ONE (21:00)
[2019-10-01 06:00] VITALS: BP 136/102
--- NOTE | 2019-10-01 06:08 | NUR ---
Problems reprioritized. Patient report given, questions answered & plan of care reviewed with Georgie CHRISTIAN.
--- NOTE | 2019-10-01 06:12 | NUR ---
Patient in room ORTHO 4023. I have received report from Georgie and had the opportunity to ask questions and assume patient care.
--- NOTE | 2019-10-01 06:24 | NUR ---
received report from umer zayas
[2019-10-01 06:31] LABS: BASOPHILS % (AUTO) 0.7 % (0-1); EOSINOPHILS # (AUTO) 0.2 X10'3 (0-0.9); EOSINOPHILS % (AUTO) 4.3 % (0-6); HEMATOCRIT 34.5 % (42.0-52.0); LYMPHOCYTES # (AUTO) 0.4 X10'3 (1.1-4.8); LYMPHOCYTES % (AUTO) 8.5 % (21-51); MEAN CORPUSCULAR HEMOGLOBIN 26.3 PG (27.0-31.0); MEAN CORPUSCULAR HGB CONC 31.9 g/dL (33.0-36.5); MEAN CORPUSCULAR VOLUME 82.6 FL (78-98); MEAN PLATELET VOLUME 8.3 FL (7.4-10.4); MONOCYTES # (AUTO) 0.9 X10'3 (0-0.9); NEUTROPHILS # (AUTO) 3.3 X10'3 (1.8-7.7); NEUTROPHILS % (AUTO) 67.5 % (42-75); PLATELET COUNT 157 X10'3 (140-440); RED BLOOD COUNT 4.18 X10'6 (4.70-6.10); RED CELL DISTRIBUTION WIDTH 19.2 % (11.5-14.5); WHITE BLOOD COUNT 4.9 X10'3 (4.5-11.0)
[2019-10-01 06:59] LABS: ANION GAP 9 (8-16); BLOOD UREA NITROGEN 42 MG/DL (7-18); BUN/CREATININE RATIO 22.8 (5.4-32.0); CALCIUM 8.4 MG/DL (8.5-10.1); CHLORIDE 104 MMOL/L (99-107); CREATININE 1.84 MG/DL (0.60-1.10); GLUCOSE 83 MG/DL (70-104); POTASSIUM 4.5 MMOL/L (3.5-5.1); SODIUM 139 MMOL/L (135-145); TOTAL CARBON DIOXIDE 26.1 MMOL/L (24-32); eGFR 37 ML/MIN
[2019-10-01 07:00] LABS: ALBUMIN 3.1 G/DL (3.4-5.0); MAGNESIUM 2.3 MG/DL (1.5-2.4)
[2019-10-01 07:18] VITALS: BP 153/110
[2019-10-01 07:19] LABS: ANISOCYTOSIS 2+; PLATELET ESTIMATE NORMAL
[2019-10-01] MEDS: K and/or MAG REPLACEMENT MC SCH (07:19)
[2019-10-01] MEDS: furosemide 40mg/4ml inj IV SCH (07:27)
[2019-10-01] MEDS: spironolactone 25 MG tablet PO SCH (07:27)
[2019-10-01] MEDS: digoxin 250mcg (0.25mg) tablet PO SCH (07:28)
[2019-10-01] MEDS: metoprolol succinate 25mg (24-HOUR) SR. Tablet PO SCH (07:28)
[2019-10-01] MEDS: HYDROcodone/acetaminophen 5mg/325mg tablet PO PRN (07:30)
[2019-10-01] MEDS: enoxaparin 60mg/0.6ml syringe SUBCUT SCH (07:30)
[2019-10-01] MEDS: ipratropium/albuterol 3ml nebule NEB PRN (08:43)
[2019-10-01 10:00] VITALS: BP 153/83
--- NOTE | 2019-10-01 10:56 | NUR ---
Pt reports LBM was today, and was normal for him. Addendum: 10/01/19 at 1107 by Toya SON Amended: Links added.
--- NOTE | 2019-10-01 10:57 | NUR ---
Pt reports slight burning very infrequently, not even daily, since starting the heparin shots. Reports urine is pale yellow. Addendum: 10/01/19 at 1107 by Toya SON Amended: Links added.
--- NOTE | 2019-10-01 12:06 | NUR ---
Problems reprioritized. Patient report given, questions answered & plan of care reviewed with
--- NOTE | 2019-10-01 16:00 | NUR ---
pt d/c with instructions, understanding of instructions and w/all belongings in wheelchair accompanied by friend to private vehicle to go home and f/u w/pcp and core blower at [place], pt told nursing staff that nursing did not need to take any more pics of his leg wounds
[2019-10-01] MEDS ORDERED: warfarin 10mg tablet PO ONE (21:00)
== END 2019-10-01 16:10 | disposition home or self-care (01) | DRG 280 ==
LOC: ER 21:21 → ORTHO 4S 22:41
PROVIDERS: ADMIT Hospitalist; ATTEND Family Medicine
DX: I13.0 Hypertensive heart and chronic kidney disease with heart failure and stage 1 through stage 4 chronic kidney disease, or unspecified chronic kidney disease (principal); I50.23 Acute on chronic systolic (congestive) heart failure; I21.A1 Myocardial infarction type 2; L03.115 Cellulitis of right lower limb; L97.919 Non-pressure chronic ulcer of unspecified part of right lower leg with unspecified severity; I48.20 Chronic atrial fibrillation, unspecified; N18.4 Chronic kidney disease, stage 4 (severe); I71.9 Aortic aneurysm of unspecified site, without rupture; Z60.2 Problems related to living alone; R09.02 Hypoxemia; F12.90 Cannabis use, unspecified, uncomplicated; Z66 Do not resuscitate; F31.9 Bipolar disorder, unspecified; I34.0 Nonrheumatic mitral (valve) insufficiency; J44.9 Chronic obstructive pulmonary disease, unspecified; K74.60 Unspecified cirrhosis of liver; Z79.01 Long term (current) use of anticoagulants; Z23 Encounter for immunization; Z86.718 Personal history of other venous thrombosis and embolism
CPT/HCPCS: 36415; 71045; 80048; 80053; 80162; 83605; 83735; 83880; 84145; 84484; 85025; 85610; 87081; 93005; 93306; 94640; 94667; 94668; 94760; 97110; 97116; 97162; 97530; 99285; G0378; J0360; J0696; J1650; J1940; Q2037

== ENCOUNTER 2021-09-07 19:40 | Inpatient (IN) | payer OTHER, MEDICARE ==
[~2021-09-07] VITALS: Ht 182.9 cm; Wt 235.0 kg
[~2021-09-07 19:40] MED LIST changes: -BISA10SU11 RC; -CEPH-572 PO; +DIGO250T2 PO; -DIGO250T77 PO; -DOCU100C41 PO; -FURO40TA4 PO; +HYDR-4383 PO; +LOSA50TA64 PO; -SPIR25TA PO
[2021-09-07] MEDS ORDERED: temazepam 15mg capsule PO PRN (21:00)
[2021-09-07 22:00] VITALS: BP 175/102
[2021-09-07] MEDS ORDERED: potassium Cl 20 mEq SR tablet PO PRN ×2 (22:25)
[2021-09-07] MEDS ORDERED: potassium Cl 40MEQ/1/2NS 520ml 520 ML IV PRN ×2 (22:25)
[2021-09-07] MEDS ORDERED: magnesium 2GM in 50ml NS 50 ML IV PRN (22:25)
[2021-09-07] MEDS ORDERED: acetaminophen 325mg tablet PO PRN ×2 (22:25)
[2021-09-07] MEDS ORDERED: magnesium Cl slow-release 64mg tablet PO PRN (22:25)
[2021-09-07] MEDS ORDERED: ondansetron/PF 4mg/2ml inj IV PRN (22:25)
[2021-09-07] MEDS ORDERED: magnesium 4gm in 100ml NS 100 ML IV PRN (22:25)
[2021-09-07] MEDS ORDERED: diltiazem-NS 100mg/100ml 100 ML IV SCH (23:00)
[2021-09-07] MEDS ORDERED: PRED5TAB PO (23:33)
[2021-09-07] MEDS ORDERED: CAT1P TRANSUR (23:33)
[2021-09-07] MEDS ORDERED: CEPH250T PO (23:33)
[2021-09-07] MEDS ORDERED: PANT-47 PO (23:33)
[2021-09-07] MEDS ORDERED: PRED1TAB PO (23:33)
[2021-09-07] MEDS ORDERED: DONE10TA11 PO (23:33)
[2021-09-07] MEDS ORDERED: AMLO5TAB4 PO (23:33)
[2021-09-07] MEDS ORDERED: DOXY-1 PO (23:33)
[2021-09-07] MEDS ORDERED: ATOR40TA PO (23:33)
[2021-09-07] MEDS ORDERED: ISOS30TA9 PO ×2 (23:33)
[2021-09-07] MEDS ORDERED: FURO-149 PO (23:33)
[2021-09-07] MEDS: furosemide 40mg/4ml inj IV SCH (23:55)
[2021-09-08 01:45] LABS: HEMATOCRIT 37.7 % (42.0-52.0); HEMOGLOBIN 12.5 g/dl (14.0-17.9); MEAN CORPUSCULAR HEMOGLOBIN 33.5 PG (27.0-31.0); MEAN CORPUSCULAR HGB CONC 33.2 g/dL (33.0-36.5); MEAN CORPUSCULAR VOLUME 100.7 FL (78-98); RED BLOOD COUNT 3.75 X10'6 (4.70-6.10); WHITE BLOOD COUNT 3.1 X10'3 (4.5-11.0)
[2021-09-08 01:46] LABS: BASOPHILS % (AUTO) 0.1 % (0-1); EOSINOPHILS % (AUTO) 0.1 % (0-6); LYMPHOCYTES # (AUTO) 0.1 X10'3 (1.1-4.8); MEAN PLATELET VOLUME 9.4 FL (7.4-10.4); MONOCYTES # (AUTO) 0.1 X10'3 (0-0.9); MONOCYTES % (AUTO) 2.2 % (2-12); NEUTROPHILS # (AUTO) 2.9 X10'3 (1.8-7.7); NEUTROPHILS % (AUTO) 93.6 % (42-75); PLATELET COUNT 90 X10'3 (140-440); RED CELL DISTRIBUTION WIDTH 16.1 % (11.5-14.5)
[2021-09-08 02:00] VITALS: BP 169/112
[2021-09-08 02:00] LABS: ALANINE AMINOTRANSFERASE 61 U/L (12-78); ALBUMIN 3.1 G/DL (3.4-5.0); ALBUMIN/GLOBULIN RATIO 0.9 (1.1-1.5); ALKALINE PHOSPHATASE 120 IU/L (46-116); ANION GAP 10 (8-16); ASPARTATE AMINO TRANSFERASE 38 U/L (10-37); BILIRUBIN,TOTAL 1.1 MG/DL (0.1-1.0); BLOOD UREA NITROGEN 70 MG/DL (7-18); BUN/CREATININE RATIO 22.2 (5.4-32.0); CALCIUM 8.4 MG/DL (8.5-10.1); CHLORIDE 110 MMOL/L (99-107); CREATININE 3.16 MG/DL (0.60-1.10); GLUCOSE 193 MG/DL (70-104); POTASSIUM 5.3 MMOL/L (3.5-5.1); SODIUM 144 MMOL/L (135-145); TOTAL CARBON DIOXIDE 23.6 MMOL/L (24-32); TOTAL PROTEIN 6.5 G/DL (6.4-8.2); eGFR 19 ML/MIN
[2021-09-08 02:02] LABS: CHOL/HDL RATIO 3.2 (0.00-4.99); CHOLESTEROL 155 MG/DL (0-200); HDL CHOLESTEROL 48 MG/DL (35-60); LDL CHOLESTEROL 89 MG/DL (50-100); TRIGLYCERIDES 72 MG/DL (20-135)
--- NOTE | 2021-09-08 04:35 | NUR ---
New admit and orientation to new environment done and verbalized understanding. IV Cardizem in progress and no and monitoring. Labs result in /potassium 5.3, communicated to the hospitalist and no new order. Will continue to monitor.
[2021-09-08 06:00] VITALS: BP 133/104
--- NOTE | 2021-09-08 06:24 | NUR ---
Patient in room PCU 3027. I have received report from ANAHI KNOX, and had the opportunity to ask questions and assume patient care.
[2021-09-08] MEDS: methylPREDNISolone sod succ/PF 40mg inj. IV SCH ×2 (07:57→20:44)
[2021-09-08] MEDS: furosemide 40mg/4ml inj IV SCH ×2 (07:58→20:44)
[2021-09-08] MEDS: K and/or MAG REPLACEMENT MC SCH ×2 (08:00→20:00)
[2021-09-08] MEDS ORDERED: heparin, porcine 5000 units/ml vial SQ SCH (08:00)
[2021-09-08] MEDS ORDERED: DIGO125T97 PO (09:24)
[2021-09-08 09:25] LABS: CLARITY,URINE CLOUDY (Clear); COLOR,URINE YELLOW (Yellow); GLUCOSE, URINE NEGATIVE (Neg); KETONES,URINE NEGATIVE (Neg); LEUKOCYTE ESTERASE ,URINE NEGATIVE (Neg); NITRITES, URINE NEGATIVE (Neg); UA COLLECTION TYPE VOIDED; UROBILINOGEN,URINE 0.2 E.U/dL (0.2-1.0)
[2021-09-08 09:33] LABS: PROTEIN,URINE 300 mg/dl (Neg)
[2021-09-08 09:34] LABS: OCCULT BLOOD,URINE NEGATIVE (Neg)
[2021-09-08 09:40] LABS: BACTERIA,URINE FEW /HPF (Neg); HYALINE CASTS 0-3 /LPF (NEGATIVE); RBC,URINE 0-2 /HPF (0-2); SQUAMOUS EPITHELIAL CELL,UR FEW /LPF (FEW); WBC,URINE 0-4 /HPF (0-4)
[2021-09-08 09:41] LABS: AMORPHOUS URATES 1+
[2021-09-08] MEDS ORDERED: ISOS20TA8 PO (10:33)
[2021-09-08] MEDS ORDERED: HYDR-4069 PO (10:33)
[2021-09-08] MEDS ORDERED: CAT1P TOP (10:33)
[2021-09-08] MEDS ORDERED: LOP12.5T PO (10:33)
[2021-09-08] MEDS ORDERED: PANT40TA54 PO (10:34)
[2021-09-08] MEDS ORDERED: ASPI-611 PO (10:34)
[2021-09-08] MEDS ORDERED: ATOR40TA71 PO (10:34)
[2021-09-08] MEDS ORDERED: APIX5TAB3 PO (10:34)
[2021-09-08 11:00] VITALS: BP 159/129
--- NOTE | 2021-09-08 11:10 | NUR ---
PAGE SENT TO RACHEAL CHOWDHURY BP 170/90, HR 122.
[2021-09-08] MEDS ORDERED: metoprolol tartrate 25mg tablet PO ONE (12:00)
[2021-09-08] MEDS ORDERED: ipratropium/albuterol 3ml nebule IH PRN (12:50)
[2021-09-08] MEDS: hydrALAZINE 25 MG tablet PO SCH ×3 (14:08→20:50)
[2021-09-08 15:00] VITALS: BP 173/135
[2021-09-08] MEDS: albuterol 2.5 MG/3 ML nebule NEB SCH ×2 (15:17→20:17)
[2021-09-08 18:00] VITALS: BP 143/92
--- NOTE | 2021-09-08 18:24 | NUR ---
Problems reprioritized. Patient report given, questions answered & plan of care reviewed with ANAHI LAIRD.
[2021-09-08] MEDS ORDERED: metoprolol tartrate 25mg tablet PO SCH (20:00)
[2021-09-08] MEDS: metoprolol tartrate 25mg tablet PO SCH (20:49)
[2021-09-08] MEDS: apixaban 5mg tablet PO SCH (20:54)
[2021-09-08 22:00] VITALS: BP 132/87
--- NOTE | 2021-09-08 22:10 | NUR ---
Per pharmacy, OK to give hydralazine early due to high BP reading. Will continue to monitor.
[2021-09-09] VITALS (7 sets, daily range): BP systolic 120–159; BP diastolic 75–115
[2021-09-09] MEDS: albuterol 2.5 MG/3 ML nebule NEB SCH ×4 (02:24→21:05)
--- NOTE | 2021-09-09 05:28 | NUR ---
Patient in bed resting at this time. No signs of distress or discomfort at this time. VSS throughout shift. Call light and personal belongings placed within reach. Instructed to call for assistance. Assessment and vital signs documented in interventions.
[2021-09-09 07:16] LABS: BASOPHILS % (AUTO) 0 % (0-1); EOSINOPHILS % (AUTO) 0 % (0-6); HEMATOCRIT 40.6 % (42.0-52.0); HEMOGLOBIN 13.3 g/dl (14.0-17.9); LYMPHOCYTES # (AUTO) 0.1 X10'3 (1.1-4.8); LYMPHOCYTES % (AUTO) 1.1 % (21-51); MEAN CORPUSCULAR HEMOGLOBIN 33.3 PG (27.0-31.0); MEAN CORPUSCULAR HGB CONC 32.9 g/dL (33.0-36.5); MEAN CORPUSCULAR VOLUME 101.1 FL (78-98); MEAN PLATELET VOLUME 9.2 FL (7.4-10.4); MONOCYTES # (AUTO) 0.2 X10'3 (0-0.9); MONOCYTES % (AUTO) 2.4 % (2-12); NEUTROPHILS # (AUTO) 9.5 X10'3 (1.8-7.7); NEUTROPHILS % (AUTO) 96.5 % (42-75); PLATELET COUNT 100 X10'3 (140-440); RED BLOOD COUNT 4.01 X10'6 (4.70-6.10); RED CELL DISTRIBUTION WIDTH 16.6 % (11.5-14.5); WHITE BLOOD COUNT 9.9 X10'3 (4.5-11.0)
[2021-09-09 07:28] LABS: ALANINE AMINOTRANSFERASE 98 U/L (12-78); ALBUMIN 3.1 G/DL (3.4-5.0); ALBUMIN/GLOBULIN RATIO 0.9 (1.1-1.5); ALKALINE PHOSPHATASE 115 IU/L (46-116); ANION GAP 8 (8-16); ASPARTATE AMINO TRANSFERASE 64 U/L (10-37); BILIRUBIN,TOTAL 0.8 MG/DL (0.1-1.0); BLOOD UREA NITROGEN 91 MG/DL (7-18); BUN/CREATININE RATIO 26.3 (5.4-32.0); CALCIUM 8.3 MG/DL (8.5-10.1); CHLORIDE 107 MMOL/L (99-107); CREATININE 3.46 MG/DL (0.60-1.10); GLUCOSE 125 MG/DL (70-104); MAGNESIUM 2.2 MG/DL (1.5-2.4); SODIUM 140 MMOL/L (135-145); TOTAL CARBON DIOXIDE 25.2 MMOL/L (24-32); TOTAL PROTEIN 6.5 G/DL (6.4-8.2); eGFR 18 ML/MIN
[2021-09-09 07:36] LABS: POTASSIUM 6.1 MMOL/L (3.5-5.1)
--- NOTE | 2021-09-09 07:42 | NUR ---
PAGER ID: [phone] MESSAGE: [id number] YIN Correa THAD 6.1. MARTINA RIOS
[2021-09-09] MEDS ORDERED: non-formulary drug (Atorvastatin Calcium 1 TAB) PO SCH (08:00)
[2021-09-09] MEDS ORDERED: non-formulary drug (Aspirin (Aspir 81) 1 TAB) PO SCH (08:00)
[2021-09-09] MEDS: K and/or MAG REPLACEMENT MC SCH ×2 (08:00→20:00)
[2021-09-09] MEDS: apixaban 5mg tablet PO SCH ×2 (08:55→19:28)
[2021-09-09] MEDS: lisinopril 5mg tablet PO SCH (08:56)
[2021-09-09] MEDS: digoxin 125mcg (0.125mg) tablet PO SCH (08:56)
[2021-09-09] MEDS: metoprolol tartrate 25mg tablet PO SCH (08:57)
[2021-09-09] MEDS: atorvastatin 20mg tablet PO SCH (08:57)
[2021-09-09] MEDS: pantoprazole 40mg Tablet.DR PO SCH (08:57)
[2021-09-09] MEDS: aspirin 81mg, enteric-coated 1 TAB TABLET.DR PO SCH (08:58)
[2021-09-09] MEDS: hydrALAZINE 25 MG tablet PO SCH ×4 (08:58→23:20)
[2021-09-09] MEDS: methylPREDNISolone sod succ/PF 40mg inj. IV SCH ×2 (09:00→19:28)
[2021-09-09] MEDS: furosemide 40mg/4ml inj IV SCH (09:00)
[2021-09-09] MEDS ORDERED: calcium chloride inj. 1,000 MG in normal saline 100ml IV soln 100 ML IV ONE (09:55)
[2021-09-09] MEDS ORDERED: sodium polystyrene sulfonate 15gm/60ml oral suspension PO ONE (09:55)
[2021-09-09] MEDS: CALCIUM GLUC 1gm/50ml NACL,iso 100 ML IV ONE ×2 (10:26→10:41)
[2021-09-09] MEDS ORDERED: CALCIUM GLUC 1gm/50ml NACL,iso 50 ML IV ONE (10:40)
[2021-09-09] MEDS ORDERED: furosemide 40mg/4ml inj IV ONE (12:20)
[2021-09-09] MEDS: furosemide 10 MG/1 ML 10ml inj IV SCH ×2 (13:00→20:51)
--- NOTE | 2021-09-09 18:11 | NUR ---
Problems reprioritized. Patient report given, questions answered & plan of care reviewed with Jazzy RN.
[2021-09-09] MEDS: metolazone 2.5mg tablet PO SCH (19:28)
[2021-09-10 02:00] VITALS: BP 146/99
[2021-09-10] MEDS: albuterol 2.5 MG/3 ML nebule NEB SCH ×4 (02:49→20:06)
--- NOTE | 2021-09-10 03:56 | NUR ---
paged regarding patient BP of 146/99. No new orders at this time.
--- NOTE | 2021-09-10 05:27 | NUR ---
patient in bed resting at this time. no signs of distress or discomfort noted. patient had elevated BP throughout shift. MD aware. call light and personal belongings placed within reach. instructed to call for assistance. dressing to VAL[place]INA lower extremities released per order. Report given to charge nurse.
[2021-09-10 05:53] LABS: BASOPHILS % (AUTO) 0 % (0-1); EOSINOPHILS % (AUTO) 0 % (0-6); HEMATOCRIT 39.9 % (42.0-52.0); LYMPHOCYTES # (AUTO) 0.1 X10'3 (1.1-4.8); MEAN CORPUSCULAR HEMOGLOBIN 33.2 PG (27.0-31.0); MEAN CORPUSCULAR HGB CONC 32.6 g/dL (33.0-36.5); MEAN CORPUSCULAR VOLUME 101.8 FL (78-98); MEAN PLATELET VOLUME 9.5 FL (7.4-10.4); MONOCYTES # (AUTO) 0.4 X10'3 (0-0.9); MONOCYTES % (AUTO) 3.9 % (2-12); NEUTROPHILS % (AUTO) 95.1 % (42-75); PLATELET COUNT 92 X10'3 (140-440); RED BLOOD COUNT 3.92 X10'6 (4.70-6.10); RED CELL DISTRIBUTION WIDTH 16.6 % (11.5-14.5); WHITE BLOOD COUNT 9.5 X10'3 (4.5-11.0)
[2021-09-10 06:00] VITALS: BP 128/96
[2021-09-10 06:19] LABS: ALANINE AMINOTRANSFERASE 118 U/L (12-78); ALBUMIN/GLOBULIN RATIO 0.9 (1.1-1.5); ALKALINE PHOSPHATASE 106 IU/L (46-116); ANION GAP 12 (8-16); ASPARTATE AMINO TRANSFERASE 49 U/L (10-37); BILIRUBIN,TOTAL 0.6 MG/DL (0.1-1.0); BLOOD UREA NITROGEN 94 MG/DL (7-18); BUN/CREATININE RATIO 27.6 (5.4-32.0); CALCIUM 7.9 MG/DL (8.5-10.1); CHLORIDE 105 MMOL/L (99-107); CREATININE 3.41 MG/DL (0.60-1.10); GLUCOSE 131 MG/DL (70-104); LACTATE DEHYDROGENASE 270 U/L (85-227); POTASSIUM 4.8 MMOL/L (3.5-5.1); SODIUM 143 MMOL/L (135-145); TOTAL CARBON DIOXIDE 26.4 MMOL/L (24-32); TOTAL PROTEIN 6.4 G/DL (6.4-8.2); eGFR 18 ML/MIN
[2021-09-10 06:23] LABS: RHEUM FACTOR QUAL REFLEX TITER NEGATIVE (Neg)
--- NOTE | 2021-09-10 07:00 | NUR ---
Patient in room PCU 3027. I have received report from ANAHI BENÍTEZ, and had the opportunity to ask questions and assume patient care.
[2021-09-10] MEDS: aspirin 81mg, enteric-coated 1 TAB TABLET.DR PO SCH (08:00)
[2021-09-10] MEDS: K and/or MAG REPLACEMENT MC SCH ×2 (08:00→20:00)
[2021-09-10] MEDS: apixaban 5mg tablet PO SCH ×2 (08:00→20:43)
[2021-09-10] MEDS: methylPREDNISolone sod succ/PF 40mg inj. IV SCH ×2 (09:25→20:43)
[2021-09-10] MEDS: furosemide 10 MG/1 ML 10ml inj IV SCH ×3 (09:29→20:44)
[2021-09-10] MEDS: metolazone 2.5mg tablet PO SCH ×2 (09:30→20:44)
[2021-09-10] MEDS: hydrALAZINE 25 MG tablet PO SCH ×4 (09:30→23:17)
[2021-09-10] MEDS: lisinopril 5mg tablet PO SCH (09:31)
[2021-09-10] MEDS: pantoprazole 40mg Tablet.DR PO SCH (09:31)
[2021-09-10] MEDS: atorvastatin 20mg tablet PO SCH (09:32)
[2021-09-10] MEDS: digoxin 125mcg (0.125mg) tablet PO SCH (09:33)
[2021-09-10] MEDS: metoprolol succinate 25mg (24-HOUR) SR. Tablet PO SCH (09:36)
[2021-09-10 11:00] VITALS: BP 125/89
--- NOTE | 2021-09-10 18:20 | NUR ---
Patient in room U 3027. I have received report from ANAHI Garcia and had the opportunity to ask questions and assume patient care. Patient is sitting up in bed watching TV, just finished dinner. He reports no issues, I will continue to monitor.
[2021-09-10 23:00] VITALS: BP 161/92
[2021-09-11] MEDS: albuterol 2.5 MG/3 ML nebule NEB SCH ×4 (02:41→20:03)
[2021-09-11 06:00] VITALS: BP 128/107
--- NOTE | 2021-09-11 06:07 | NUR ---
Problems reprioritized. Patient report given, questions answered & plan of care reviewed with ANAHI Garcia.
[2021-09-11 06:27] LABS: BASOPHILS % (AUTO) 0.1 % (0-1); EOSINOPHILS % (AUTO) 0 % (0-6); HEMATOCRIT 38.5 % (42.0-52.0); HEMOGLOBIN 12.8 g/dl (14.0-17.9); LYMPHOCYTES # (AUTO) 0.1 X10'3 (1.1-4.8); LYMPHOCYTES % (AUTO) 0.9 % (21-51); MEAN CORPUSCULAR HEMOGLOBIN 33.4 PG (27.0-31.0); MEAN CORPUSCULAR HGB CONC 33.3 g/dL (33.0-36.5); MEAN CORPUSCULAR VOLUME 100.2 FL (78-98); MEAN PLATELET VOLUME 9.3 FL (7.4-10.4); MONOCYTES # (AUTO) 0.3 X10'3 (0-0.9); MONOCYTES % (AUTO) 3.6 % (2-12); NEUTROPHILS # (AUTO) 8.1 X10'3 (1.8-7.7); NEUTROPHILS % (AUTO) 95.4 % (42-75); PLATELET COUNT 90 X10'3 (140-440); RED BLOOD COUNT 3.84 X10'6 (4.70-6.10); RED CELL DISTRIBUTION WIDTH 16.2 % (11.5-14.5); WHITE BLOOD COUNT 8.5 X10'3 (4.5-11.0)
--- NOTE | 2021-09-11 06:42 | NUR ---
Patient in room PCU 3027. I have received report from ANAHI REYES, and had the opportunity to ask questions and assume patient care.
[2021-09-11 06:53] LABS: ALANINE AMINOTRANSFERASE 105 U/L (12-78); ALBUMIN 3.2 G/DL (3.4-5.0); ALKALINE PHOSPHATASE 108 IU/L (46-116); ANION GAP 11 (8-16); ASPARTATE AMINO TRANSFERASE 39 U/L (10-37); BILIRUBIN,TOTAL 0.6 MG/DL (0.1-1.0); BLOOD UREA NITROGEN 105 MG/DL (7-18); BUN/CREATININE RATIO 30.3 (5.4-32.0); CALCIUM 8.1 MG/DL (8.5-10.1); CHLORIDE 104 MMOL/L (99-107); CREATININE 3.47 MG/DL (0.60-1.10); GLUCOSE 127 MG/DL (70-104); POTASSIUM 4.7 MMOL/L (3.5-5.1); SODIUM 143 MMOL/L (135-145); TOTAL CARBON DIOXIDE 28.5 MMOL/L (24-32); TOTAL PROTEIN 6.3 G/DL (6.4-8.2); eGFR 17 ML/MIN
[2021-09-11] MEDS: methylPREDNISolone sod succ/PF 40mg inj. IV SCH ×2 (08:00→20:08)
[2021-09-11] MEDS: K and/or MAG REPLACEMENT MC SCH ×2 (08:00→20:00)
[2021-09-11] MEDS: atorvastatin 20mg tablet PO SCH (08:52)
[2021-09-11] MEDS: furosemide 10 MG/1 ML 10ml inj IV SCH ×3 (08:55→20:08)
[2021-09-11] MEDS: metolazone 2.5mg tablet PO SCH ×2 (08:56→20:08)
[2021-09-11] MEDS: metoprolol succinate 25mg (24-HOUR) SR. Tablet PO SCH (08:56)
[2021-09-11] MEDS: pantoprazole 40mg Tablet.DR PO SCH (08:56)
[2021-09-11] MEDS: lisinopril 5mg tablet PO SCH (08:58)
[2021-09-11] MEDS: apixaban 5mg tablet PO SCH ×2 (08:58→20:08)
[2021-09-11] MEDS: aspirin 81mg, enteric-coated 1 TAB TABLET.DR PO SCH (08:58)
[2021-09-11] MEDS: hydrALAZINE 25 MG tablet PO SCH ×4 (08:58→23:50)
[2021-09-11] MEDS: digoxin 125mcg (0.125mg) tablet PO SCH (08:59)
[2021-09-11 11:00] VITALS: BP 128/92
--- NOTE | 2021-09-11 13:49 | NUR ---
Initial: pt admitted w/ increasing SOB and CHF exacerbation per EMR. Pt currently on 1.2L fluid restriction per MD note. Pt able to eat well on Renal/2gNa diet consuming 100% of meals meeting needs. Noted pt BMI of 70 though previous admit 1 year ago pt 102kg, current likely 106kg w/ BMI of 31.7. LBM 09/09. No nutrition intervention implemented at this time, will continue to monitor. Recs: 1. Continue Renal/2gNa diet as tolerated; fluid restriction per MD 2. Bowel care per rx 3. Scaled wt this admit, weekly wt thereafter Addendum: 09/11/21 at [address] Amended: Links added.
[2021-09-11 18:00] VITALS: BP 137/79
--- NOTE | 2021-09-11 18:20 | NUR ---
Patient in room PCU 3028R. I have received report from ANAHI Garcia and had the opportunity to ask questions and assume patient care.
--- NOTE | 2021-09-11 18:27 | NUR ---
Problems reprioritized. Patient report given, questions answered & plan of care reviewed with ANAHI ORTIZ.
[2021-09-11 22:00] VITALS: BP 139/98
[2021-09-12 02:00] VITALS: BP 124/92
[2021-09-12] MEDS: albuterol 2.5 MG/3 ML nebule NEB SCH ×4 (03:09→19:47)
[2021-09-12 06:00] VITALS: BP 143/96
[2021-09-12 06:16] LABS: ALANINE AMINOTRANSFERASE 95 U/L (12-78); ALBUMIN 3.2 G/DL (3.4-5.0); ALKALINE PHOSPHATASE 109 IU/L (46-116); ANION GAP 8 (8-16); ASPARTATE AMINO TRANSFERASE 26 U/L (10-37); BILIRUBIN,TOTAL 0.6 MG/DL (0.1-1.0); BLOOD UREA NITROGEN 115 MG/DL (7-18); BUN/CREATININE RATIO 32.8 (5.4-32.0); CALCIUM 8.2 MG/DL (8.5-10.1); CHLORIDE 102 MMOL/L (99-107); CREATININE 3.51 MG/DL (0.60-1.10); GLUCOSE 162 MG/DL (70-104); MAGNESIUM 1.9 MG/DL (1.5-2.4); POTASSIUM 4.4 MMOL/L (3.5-5.1); SODIUM 140 MMOL/L (135-145); TOTAL CARBON DIOXIDE 30.2 MMOL/L (24-32); TOTAL PROTEIN 6.5 G/DL (6.4-8.2); eGFR 17 ML/MIN
--- NOTE | 2021-09-12 06:20 | NUR ---
Problems reprioritized. Patient report given, questions answered & plan of care reviewed with ANAHI Golden.
--- NOTE | 2021-09-12 06:30 | NUR ---
Patient in room PCU 3027. I have received report from Lisa CHRISTIAN and had the opportunity to ask questions and assume patient care.
[2021-09-12 07:26] LABS: BASOPHILS % (AUTO) 0.1 % (0-1); EOSINOPHILS % (AUTO) 0 % (0-6); HEMATOCRIT 39.4 % (42.0-52.0); HEMOGLOBIN 13.1 g/dl (14.0-17.9); LYMPHOCYTES # (AUTO) 0.1 X10'3 (1.1-4.8); LYMPHOCYTES % (AUTO) 1.1 % (21-51); MEAN CORPUSCULAR HEMOGLOBIN 33.4 PG (27.0-31.0); MEAN CORPUSCULAR HGB CONC 33.3 g/dL (33.0-36.5); MEAN CORPUSCULAR VOLUME 100.4 FL (78-98); MEAN PLATELET VOLUME 9.4 FL (7.4-10.4); MONOCYTES # (AUTO) 0.3 X10'3 (0-0.9); MONOCYTES % (AUTO) 3.8 % (2-12); PLATELET COUNT 86 X10'3 (140-440); RED BLOOD COUNT 3.93 X10'6 (4.70-6.10); RED CELL DISTRIBUTION WIDTH 15.9 % (11.5-14.5); WHITE BLOOD COUNT 8.4 X10'3 (4.5-11.0)
[2021-09-12 07:51] LABS: ANTINUCLEAR ANTIBODIES Positive (Negative)
[2021-09-12] MEDS: K and/or MAG REPLACEMENT MC SCH ×2 (08:00→20:00)
[2021-09-12] MEDS: furosemide 10 MG/1 ML 10ml inj IV SCH ×2 (09:02→14:43)
[2021-09-12] MEDS: pantoprazole 40mg Tablet.DR PO SCH (09:03)
[2021-09-12] MEDS: metoprolol succinate 25mg (24-HOUR) SR. Tablet PO SCH (09:03)
[2021-09-12] MEDS: atorvastatin 20mg tablet PO SCH (09:03)
[2021-09-12] MEDS: aspirin 81mg, enteric-coated 1 TAB TABLET.DR PO SCH (09:04)
[2021-09-12] MEDS: digoxin 125mcg (0.125mg) tablet PO SCH (09:04)
[2021-09-12] MEDS: predniSONE 20 mg tablet PO SCH (09:05)
[2021-09-12] MEDS: metolazone 2.5mg tablet PO SCH (09:05)
[2021-09-12] MEDS: apixaban 5mg tablet PO SCH ×2 (09:06→21:32)
[2021-09-12] MEDS: hydrALAZINE 25 MG tablet PO SCH ×4 (09:06→23:12)
[2021-09-12 11:00] VITALS: BP 113/95
[2021-09-12 14:37] LABS: ANTISTREPTOLYSIN O AB 175.2 IU/mL (0.0-200.0); BETA GLOBULIN 1.1 g/dL (0.7-1.3); COMPLEMENT C3, SERUM 91 mg/dL (82-167); COMPLEMENT C4, SERUM 16 mg/dL (12-38); GAMMA GLOBULIN 0.9 g/dL (0.4-1.8); HBSAG SCREEN Negative (Negative); HEPATITIS C ANTIBODY <0.1 s/co ratio (0.0-0.9); M-SPIKE Not Observed g/dL (Not Observed)
[2021-09-12 15:00] VITALS: BP 137/108
[2021-09-12 15:07] LABS: TOTAL PROTEIN,URINE RANDOM 26.1 MG/DL
[2021-09-12 15:37] LABS: COLOR,URINE STRAW (Yellow); UA COLLECTION TYPE NON-SPECIFIED
[2021-09-12 15:38] LABS: CLARITY,URINE Clear (Clear); GLUCOSE, URINE NEGATIVE (Neg); KETONES,URINE NEGATIVE (Neg); LEUKOCYTE ESTERASE ,URINE NEGATIVE (Neg); NITRITES, URINE NEGATIVE (Neg); OCCULT BLOOD,URINE NEGATIVE (Neg); PROTEIN,URINE 30 mg/dl (Neg); UROBILINOGEN,URINE 0.2 E.U/dL (0.2-1.0)
[2021-09-12 15:51] LABS: BACTERIA,URINE 1+ /HPF (Neg); MUCUS STRANDS NONE SEEN /LPF (Neg); RBC,URINE 0-2 /HPF (0-2); SQUAMOUS EPITHELIAL CELL,UR NONE SEEN /LPF (FEW); WBC,URINE NONE SEEN /HPF (0-4)
[2021-09-12 16:45] LABS: UA EOSINOPHILS NO EOS /HPF
[2021-09-12 18:00] VITALS: BP 131/76
--- NOTE | 2021-09-12 18:03 | NUR ---
Student documentation: I have reviewed and agree with all interventions, assessments performed and documented by Jt Brand.
--- NOTE | 2021-09-12 18:03 | NUR ---
Student Medication Administration: For this medication-pass time frame, all medication were reviewed, dispensed, administered and documented per hospital policy by Jt Brand.
--- NOTE | 2021-09-12 18:25 | NUR ---
Problems reprioritized. Patient report given, questions answered & plan of care reviewed with Jo Ann CHRISTIAN.
--- NOTE | 2021-09-12 18:30 | NUR ---
Patient in room PCU 3027. I have received report from Chantel CHRISTIAN and had the opportunity to ask questions and assume patient care.
[2021-09-12] MEDS: furosemide 40mg tablet PO SCH (21:32)
[2021-09-12 22:00] VITALS: BP 110/89
[2021-09-13 02:00] VITALS: BP 115/86
[2021-09-13] MEDS: albuterol 2.5 MG/3 ML nebule NEB SCH ×2 (02:40→08:46)
[2021-09-13 06:00] VITALS: BP 135/98
--- NOTE | 2021-09-13 06:30 | NUR ---
Problems reprioritized. Patient report given, questions answered & plan of care reviewed with Sandra CHRISTIAN.
--- NOTE | 2021-09-13 07:05 | NUR ---
Patient in room PCU 3027. I have received report from ANAHI Cherry and had the opportunity to ask questions and assume patient care.
[2021-09-13] MEDS: K and/or MAG REPLACEMENT MC SCH (08:00)
[2021-09-13] MEDS: aspirin 81mg, enteric-coated 1 TAB TABLET.DR PO SCH (08:37)
[2021-09-13] MEDS: pantoprazole 40mg Tablet.DR PO SCH (08:37)
[2021-09-13] MEDS: metoprolol succinate 25mg (24-HOUR) SR. Tablet PO SCH (08:37)
[2021-09-13] MEDS: hydrALAZINE 25 MG tablet PO SCH (08:37)
[2021-09-13] MEDS: predniSONE 20 mg tablet PO SCH (08:37)
[2021-09-13] MEDS: apixaban 5mg tablet PO SCH (08:38)
[2021-09-13] MEDS: atorvastatin 20mg tablet PO SCH (08:38)
[2021-09-13] MEDS: digoxin 125mcg (0.125mg) tablet PO SCH (08:38)
[2021-09-13] MEDS: furosemide 40mg tablet PO SCH (08:38)
[2021-09-13 08:54] LABS: ALBUMIN 3.3 G/DL (3.4-5.0); ANION GAP 9 (8-16); BLOOD UREA NITROGEN 118 MG/DL (7-18); BUN/CREATININE RATIO 35.6 (5.4-32.0); CALCIUM 8.5 MG/DL (8.5-10.1); CHLORIDE 99 MMOL/L (99-107); CREATININE 3.31 MG/DL (0.60-1.10); GLUCOSE 88 MG/DL (70-104); POTASSIUM 3.8 MMOL/L (3.5-5.1); SODIUM 142 MMOL/L (135-145); TOTAL CARBON DIOXIDE 34.4 MMOL/L (24-32); eGFR 18 ML/MIN
[2021-09-13 11:00] VITALS: BP 128/6
[2021-09-15 17:15] LABS: ALBUMIN, UR 66.6 % (.); ALPHA-1-GLOBULIN,UR 4.4 % (.); ALPHA-2-GLOBULIN,UR 5.6 % (.); BETA GLOBULIN, UR 15.5 % (.); GAMMA GLOBULIN,UR 7.8 % (.); PROTEIN,TOTAL,URINE 23.9 mg/dL (Not Estab.)
== END 2021-09-13 14:44 | DRG 682 ==
LOC: UNDOADMIN 19:40 → PCU 3S 19:40
PROVIDERS: ADMIT Internal Medicine; ATTEND Internal Medicine
DX: N17.9 Acute kidney failure, unspecified (principal); I50.23 Acute on chronic systolic (congestive) heart failure; I21.A1 Myocardial infarction type 2; I13.0 Hypertensive heart and chronic kidney disease with heart failure and stage 1 through stage 4 chronic kidney disease, or unspecified chronic kidney disease; J96.11 Chronic respiratory failure with hypoxia; I42.0 Dilated cardiomyopathy; N18.4 Chronic kidney disease, stage 4 (severe); E87.5 Hyperkalemia; F31.9 Bipolar disorder, unspecified; I27.20 Pulmonary hypertension, unspecified; I34.0 Nonrheumatic mitral (valve) insufficiency; D69.6 Thrombocytopenia, unspecified; G47.33 Obstructive sleep apnea (adult) (pediatric); Z20.822 Contact with and (suspected) exposure to COVID-19; K52.9 Noninfective gastroenteritis and colitis, unspecified; M25.571 Pain in right ankle and joints of right foot; R00.0 Tachycardia, unspecified; S81.809A Unspecified open wound, unspecified lower leg, initial encounter; X58.XXXA Exposure to other specified factors, initial encounter; I48.0 Paroxysmal atrial fibrillation; J44.9 Chronic obstructive pulmonary disease, unspecified; Z66 Do not resuscitate; Z79.01 Long term (current) use of anticoagulants; Z79.82 Long term (current) use of aspirin; I25.2 Old myocardial infarction; Z79.899 Other long term (current) drug therapy; Z87.891 Personal history of nicotine dependence; Z95.2 Presence of prosthetic heart valve; Y93.89 Activity, other specified; Y92.89 Other specified places as the place of occurrence of the external cause; Y99.8 Other external cause status; Z99.81 Dependence on supplemental oxygen
CPT/HCPCS: 36415; 71046; 76770; 80048; 80053; 80061; 81001; 82570; 83615; 83735; 83880; 84132; 84155; 84156; 84165; 84166; 84300; 84484; 85025; 85651; 86038; 86060; 86160; 86430; 86592; 86803; 87081; 87207; 87340; 87635; 93005; 93306; 94640; 94760; 97116; 97161; 97530; G0378; J1644; J1940; J2920; J3490; J7512